=== PATIENT | female | born 1965 | race Caucasian/White ===

== ENCOUNTER 2020-07-15 09:31 | Outpatient (REF) | payer OTHER, SELFPAY ==
[2020-07-19 20:12] LABS: HPV mRNA E6/E7 rflx Not Detected (Not Detected)
== END 2020-07-15 09:32 | disposition home or self-care (01) ==
LOC: HO.LAB 09:31
PROVIDERS: PCP Internal Medicine; Referring Provider Internal Medicine; Visit Provider Obstetrics & Gynecology
DX: Z01.419 Encounter for gynecological examination (general) (routine) without abnormal findings (principal); R63.4 Abnormal weight loss
CPT/HCPCS: 87624; 87625; 88142

== ENCOUNTER 2020-08-04 12:50 | Outpatient (REF) | payer OTHER, SELFPAY | END 2020-08-04 12:51 | disposition home or self-care (01) | LOC: HO.LAB 12:50 | PROVIDERS: PCP Internal Medicine; Visit Provider Internal Medicine | DX: Z20.828 Contact with and (suspected) exposure to other viral communicable diseases (principal) | CPT/HCPCS: C9803; U0003 ==

== ENCOUNTER → 2020-08-12 11:17 | Outpatient (BNVA) | payer OTHER, SELFPAY | PROVIDERS: PCP Internal Medicine; Visit Provider Nurse Practitioner Family | DX: Z13.89 Encounter for screening for other disorder (principal) | CPT/HCPCS: Q3014 ==

== ENCOUNTER 2020-08-13 07:52 | Outpatient (REF) | payer OTHER, SELFPAY ==
[2020-08-13 08:39] LABS: Hemoglobin 12.8 g/dl (12.0-16.0); Mean Corpuscular HGB Conc 32.8 g/dl (31.0-35.0); Mean Corpuscular Hemoglobin 30.7 pg (27.0-33.0); Mean Corpuscular Volume 93.5 fL (80-98); Mean Platelet Volume 10.3 fL (9.4-12.3); Platelet Count 240 X10*3/uL (160-400); Red Blood Count 4.17 X10*6/uL (4.20-5.50); Red Cell Distribution Width 12.9 % (11.0-16.0); White Blood Count 9.4 X10*3/uL (4.8-10.8)
[2020-08-13 09:12] LABS: Alanine Aminotransferase 7 U/L (0-31); Albumin Level 4.3 g/dL (3.5-5.0); Alkaline Phosphatase 83 U/L (39-117); Anion Gap 11 (12-20); Aspartate Amino Transferase 13 U/L (5-31); Bilirubin Total 0.6 mg/dL (0.0-1.0); Blood Urea Nitrogen 11 mg/dL (9-16); Calcium 8.9 mg/dL (8.4-10.2); Carbon Dioxide 30 mmol/L (22-29); Chloride 105 mmol/L (96-108); Cholesterol 196 mg/dL; Estimated Glomerular Filt Rate > 60; Glucose Fasting 81 mg/dL (60-99); HDL Cholesterol 51 mg/dL; LDL Cholesterol Calculated 118 mg/dl; Potassium 4.2 mmol/l (3.3-5.1); Sodium 142 mmol/L (135-145); Total Protein 7.1 g/dL (6.5-8.0); Triglycerides 138 mg/dL
[2020-08-17 11:23] LABS: Vitamin D 25-OH, D2 8 ng/mL; Vitamin D 25-OH, D3 32 ng/mL; Vitamin D 25-OH, Total 40 ng/mL (30-100)
== END 2020-08-13 07:53 | disposition home or self-care (01) ==
LOC: HO.LAB 07:52
PROVIDERS: PCP Internal Medicine; Visit Provider Nurse Practitioner Family
DX: Z12.11 Encounter for screening for malignant neoplasm of colon (principal); E55.9 Vitamin D deficiency, unspecified; Z82.49 Family history of ischemic heart disease and other diseases of the circulatory system; J30.9 Allergic rhinitis, unspecified
CPT/HCPCS: 36415; 80053; 80061; 82306; 85027

== ENCOUNTER → 2020-09-09 14:06 | Outpatient (BNVA) | payer OTHER, SELFPAY | PROVIDERS: PCP Internal Medicine; Visit Provider Nurse Practitioner Family | DX: Z76.89 Persons encountering health services in other specified circumstances (principal) ==

== ENCOUNTER 2020-09-14 07:36 | Day surgery (SDC) | payer OTHER, SELFPAY ==
[2020-09-08 19:39] VITALS: BMI 26.0
--- NOTE | 2020-09-13 10:37 | HO.ANESPROP2 ---
HPI - Anesthesia Eval Consult details Narrative: 54yo F for Colon[facility] Past Medical History Medical History (Updated 09/08/20 @ 19:45 by Holly Harris RN) Allergic rhinitis Anemia Asthma Family history of hypertension GERD (gastroesophageal reflux disease) Hypovitaminosis D Migraine Migraine Moderate asthma Nausea Parkinson disease Restless leg syndrome Tremors of nervous system Family History Family History (Updated 07/16/20 @ 07:54 by SUSHILA Walker) Father HTN (hypertension) Asthma Mother HTN (hypertension) Paternal Grandfather Prostate cancer Maternal Grandfather Prostate cancer Surgical History Surgical History History of breast lump/mass excision History of carpal tunnel release History of colonoscopy History of surgery Hx of tubal ligation Social History Social History (Updated 09/09/20 @ 14:10 by SUSHILA Sarah) Household Members: Spouse and Children Alcohol intake: never Smoking Status: Never smoker Use of substances other than those prescribed or required for medical reasons: No Advance Directives: Yes Advance Directives Information Provided: Yes Advance Directives on File: No (will bring) Advance Directives Date on File: 08/27/14 Current occupational status: disabled Sexual orientation: Straight/Heterosexual Gender identity: female Meds Allergies Allergy/AdvReac Type Severity Reaction Status Date / Time No Known Allergies Allergy Verified 09/09/20 14:09 [No Known Allergies*] Home Medications Medication Instructions Recorded Confirmed Type albuterol sulfate 2.5 mg INHALATION Q6H 07/15/20 09/08/20 History albuterol sulfate 90 mcg/actuation 2 puff INHALATION Q6H PRN 07/15/20 09/08/20 History aerosol inhaler carbidopa ER 25 mg-levodopa 100 mg 1 tab PO TID 07/15/20 09/08/20 History tablet,extended release cholecalciferol (vitamin D3) 25 25 mcg PO DAILY 07/15/20 09/08/20 History mcg (1,000 unit) capsule divalproex 250 mg tablet,delayed 250 mg PO TID 07/15/20 09/08/20 History release fluticasone furoate 100 1 inh INHALATION DAILY 07/15/20 09/08/20 History mcg-vilanterol 25 mcg/dose inhalation powder fluticasone propionate 50 1 spray INTRANASAL DAILY 07/15/20 09/08/20 History mcg/actuation nasal spray,suspension gabapentin 100 mg capsule 100 mg PO BID 07/15/20 09/08/20 History loratadine 10 mg capsule 10 mg PO DAILY 07/15/20 09/08/20 History primidone 50 mg tablet 50 mg PO BEDTIME 07/15/20 09/08/20 History promethazine 25 mg tablet 25 mg PO Q4-6H PRN 07/15/20 09/08/20 History ropinirole 5 mg tablet 5 mg PO BEDTIME 07/15/20 09/08/20 History Exam Exam Date and Time: September 13, 2020 1037 Height,Weight and Vital Signs: Height 5 ft 3 in Weight 66.678 kg Assessment and Plan Assessment Anesthesia Assessment: Chart Reviewed
[2020-09-14 09:20] VITALS: BP 145/75; PULSE 74; RESP 18; TEMP 36.9; O2SAT 99
[2020-09-14] MEDS: Lactated Ringers 1,000 ML 100 ML IVCONT (09:52)
--- NOTE | 2020-09-14 10:12 | P.OP_ITS ---
Operative Note Operative Note Date of Service: 09/14/20 Narrative: Pre-op diagnosis: Colon cancer screening Post-op diagnosis: other (colon polyps, diverticulosis) Procedure: COLONOSCOPY TILL CECUM WITH BIOPSY AND SNARE POLYPECTOMY Consent: Indications for the procedure and potential complications of bleeding, perforation, reaction to medications and missed diagnosis were discussed with the patient and informed consent was obtained. Instrument: Olympus PCF H 190 L variable stiffness pediatric colonoscope Monitoring: Vital signs and clinical assessment, intermittent blood pressure monitoring, continuous EKG monitoring, Pulse oximetry and Carbon Dioxide monitoring were done throughout the procedure. Colon withdrawl time was 21 minutes. Procedure: The patient was placed in the left lateral decubitis position and pre-procedure medications were administered. After a digital rectal examination of the ano-rectum, the video colonoscope was inserted into the rectum and advanced through the colon to the cecum. The colonoscope was slowly withdrawn in a retrograde panoramic fashion and the colon mucosa was carefully examined including a retroflexed view of the rectum. Findings and interventions are described below. Procedure Difficulty: Without difficulty Findings: Terminal Ileum: Distal 5 cms was examined and appeared normal Cecum: ? ulcers with yellow-white exudates at the lip of ICV - biopsied Ascending Colon: A 10 mm ulcerated sessile polyp in the proximal AC removed with a cold snare Transverse Colon: Normal Descending Colon: Normal Sigmoid Colon: Moderate diverticulosis Rectum: A few 5-8 mm diminutive appearing polyps - one polyp was biopsied. Ano-rectum: Normal Colon preparation: Excellent Impression and Post Procedure Diagnosis: Colonoscopy Findings: Two small to medium sized polyps removed Moderate diverticulosis seen in the sigmoid colon Plan: Await pathology results Patient has an appointment on 09/17/20 in the GI Clinic with Mesha Alexander FNP-. Repeat Colonoscopy interval based on path results - in 3-5 years if polyps are adenomatous and 10 years if polyps are hyperplastic. Above findings were reviewed with the patient and colon polyps and diverticu losis handouts were given in the discharge area Surgeon: Georgette Posey MD Anesthesia: MAC (Dr Tavarez) Estimated blood loss (mL): 0 Pathology: other (A. AC polyp x 1, B. ICV, C. rectal polyp x 1) Condition: stable Disposition: PACU
--- NOTE | 2020-09-14 10:12 | MHC.SHP ---
Pre-Procedural Eval Section A The patient is an INPATIENT: No The History & Physical has been completed within 30 days and I have reviewed it.: No Section B Chief Complaint: screening Details of Present Illness: Colon cancer screening, hx of hyperplastic colon polyps Relevant Family History (Specify if Yes): No Relevant Social History: None Present Medications: see Short Stay Collaborative assessment Medical History: Significant History (Allergic rhinitis Anemia Asthma Family history of hypertension GERD (gastroesophageal reflux disease) Hypovitaminosis D Migraine Moderate asthma Nausea Parkinson disease Restless leg syndrome Tremors of nervous system) History of Previous Operations: Relevant previous surgery/procedure and date(s) (History of breast lump/mass excision History of carpal tunnel release History of colonoscopy History of surgery Hx of tubal ligation) Allergies: Allergies Allergy/AdvReac Type Severity Reaction Status Date / Time No Known Allergies Allergy Verified 09/09/20 14:09 [No Known Allergies*] Review of Systems Sugical H&P ROS: Negative: Constitution, Cardiovascular, Respiratory and Gastrointestinal Exam Surgical H&P Exam: Normal: Heart, Normal: Lungs, Normal: Extremities and Normal: Abdomen Plan Diagnosis/Plan: Unchanged I have reviewed the history and physical and performed a pertinent physical examination on my patient. No changes have occurred unless specified.
[2020-09-14 11:15] VITALS: BP 90/51; PULSE 61; RESP 16; TEMP 36.7; O2SAT 100
[2020-09-14 11:30] VITALS: BP 100/64; PULSE 65; RESP 16; TEMP 36.7; O2SAT 100
== END 2020-09-14 12:28 | disposition home or self-care (01) ==
PROVIDERS: PCP Internal Medicine; Visit Provider Internal Medicine Gastroenterology
PROC: 0DJD8ZZ Inspection of Lower Intestinal Tract, Via Natural or Artificial Opening Endoscopic (ICD-10-PCS; CPT 45378; principal; 2020-09-14 09:40)
DX: Z12.11 Encounter for screening for malignant neoplasm of colon (principal); D12.2 Benign neoplasm of ascending colon; K62.1 Rectal polyp; K57.30 Diverticulosis of large intestine without perforation or abscess without bleeding; K52.9 Noninfective gastroenteritis and colitis, unspecified; K21.9 Gastro-esophageal reflux disease without esophagitis; D64.9 Anemia, unspecified; J45.909 Unspecified asthma, uncomplicated; I10 Essential (primary) hypertension; G20 Parkinson's disease; Z79.51 Long term (current) use of inhaled steroids; Z79.899 Other long term (current) drug therapy
CPT/HCPCS: 45385; 45380; 88305

== ENCOUNTER → 2020-09-17 14:04 | Outpatient (BNVA) | payer OTHER, SELFPAY | PROVIDERS: PCP Internal Medicine; Visit Provider Nurse Practitioner Family | DX: Z13.89 Encounter for screening for other disorder (principal) | CPT/HCPCS: 99212 ==

== ENCOUNTER 2020-09-17 16:05 | Emergency (ER) | payer OTHER, SELFPAY ==
[2020-09-17 16:10] VITALS: BP 164/84; PULSE 80; RESP 18; TEMP 36.7; O2SAT 98
[2020-09-17 18:35] VITALS: BP 154/77; PULSE 74; RESP 20; TEMP 36.3; O2SAT 100
[2020-09-17 20:00] VITALS: BP 152/86; PULSE 69; RESP 16; TEMP 36.4
--- NOTE | 2020-09-17 21:28 | ED.GENADULT ---
HPI - General Adult General Chief complaint: Headache Stated complaint: High blood pressure/Dizziness Time Seen by Provider: 09/17/20 21:27 Source: patient, old records reviewed and spanish interpreter/translator Mode of arrival: ambulatory Limitations: no limitations History of Present Illness HPI narrative: 54 yo female comes in with reported high blood pressure at home today (unsure of value) but reports nausea, photophobia, headache which she had when her pressure was high, she notes prior dx of HTN but has not been on medications or years due to BP being stable, no AC therapy, no trauma, has not tried any pain medications at home MD complaint: headache Onset (ago): day(s) (> 12 hours ago) Location: head Severity: moderate Quality: aching, dull and constant Pain Consistency: constant Relieving factors: none Exacerbating factors: other (worse with light exposure) Associated symptoms: headaches and nausea/vomiting Treatments prior to arrival: none Related Data Home Medications Medication Instructions Recorded Confirmed albuterol sulfate 2.5 mg INHALATION Q6H 07/15/20 09/17/20 albuterol sulfate 90 mcg/actuation 2 puff INHALATION Q6H PRN 07/15/20 09/17/20 aerosol inhaler carbidopa ER 25 mg-levodopa 100 mg 1 tab PO TID 07/15/20 09/17/20 tablet,extended release cholecalciferol (vitamin D3) 25 25 mcg PO DAILY 07/15/20 09/17/20 mcg (1,000 unit) capsule divalproex 250 mg tablet,delayed 250 mg PO TID 07/15/20 09/17/20 release fluticasone furoate 100 1 inh INHALATION DAILY 07/15/20 09/17/20 mcg-vilanterol 25 mcg/dose inhalation powder gabapentin 100 mg capsule 100 mg PO BID 07/15/20 09/17/20 loratadine 10 mg capsule 10 mg PO DAILY 07/15/20 09/17/20 primidone 50 mg tablet 50 mg PO BEDTIME 07/15/20 09/17/20 promethazine 25 mg tablet 25 mg PO Q4-6H PRN 07/15/20 09/17/20 ropinirole 5 mg tablet 5 mg PO BEDTIME 07/15/20 09/17/20 Previous Rx's Medication Instructions Recorded omeprazole 20 mg capsule,delayed 20 mg PO DAILY #90 cap 08/14/20 release fluticasone propionate 50 1 spray INTRANASAL DAILY #48 ml 09/15/20 mcg/actuation nasal spray,suspension Allergies Allergy/AdvReac Type Severity Reaction Status Date / Time No Known Allergies Allergy Verified 09/17/20 14:05 [No Known Allergies*] Review of Systems Review of Systems: Constitutional : No Fever, No Chills, No Fatigue ENT/Mouth : No sore throat, No Rhinorrhea Eyes: pos photophobia, No Swelling, No Redness Cardiovascular : No Chest Pain, No SOB, No Dyspnea on Exertion Respiratory : No Cough, No Sputum Gastrointestinal : pos Nausea, No Vomiting, No Diarrhea, No abdominal Pain Genitourinary : No Dysuria, No Urinary Frequency, No Hematuria, Musculoskeletal : No joint pain, No Myalgias, No Joint Swelling Skin : No Skin Lesions, No rash Neuro : No Weakness, No Numbness, No Dizziness, positive Headache Psych : No Anxiety/Panic, No Depression Heme/Lymph: No Bruising, No Bleeding,No Lymphadenopathy Endocrine : No Polyuria, No Polydipsia All other systems reviewed and are negative [facility] Past Medical History Attestation statement: The following information was validated with the patient. Medical History Allergic rhinitis Anemia Asthma Family history of hypertension GERD (gastroesophageal reflux disease) Hypovitaminosis D Migraine Migraine Moderate asthma Nausea Parkinson disease Restless leg syndrome Tremors of nervous system Tubular adenoma Surgical History History of breast lump/mass excision History of carpal tunnel release History of colonoscopy History of surgery Hx of tubal ligation Family History Family History (Updated 07/16/20 @ 07:54 by Lizbet Lo Amber) Father HTN (hypertension) Asthma Mother HTN (hypertension) Paternal Grandfather Prostate cancer Maternal Grandfather Prostate cancer Social History Social History Household Members: Spouse and Children Alcohol intake: never Smoking Status: Never smoker Use of substances other than those prescribed or required for medical reasons: No Advance Directives: Yes Advance Directives on File: Yes Advance Directives Date on File: 08/27/14 Current occupational status: disabled Sexual orientation: Straight/Heterosexual Gender identity: female Physical Exam Vital Signs: Vital Signs: Last Vital Signs Temp 98.0 F 09/17/20 21:48 Pulse 71 09/17/20 21:48 Resp 17 09/17/20 21:48 BP 142/77 H 09/17/20 21:48 Pulse Ox 99 09/17/20 21:48 Body Mass Index 24.6 Appearance: Alert. Oriented X3. No acute distress. Eyes: Pupils equal, round and reactive to light. Covering eyes from light ENT: Pharynx normal. Neck: Normal inspection. Neck supple. no meningeal signs CVS: Normal heart rate and rhythm. Pulses normal. Respiratory: No respiratory distress. Breath sounds normal. Abdomen: Soft and nontender. Skin: Skin warm and dry. Normal skin color. Normal skin turgor. Extremities: No lower extremity edema. No calf ttp no clonus Neuro: Oriented X 3. No motor deficit. No sensory deficit. Fine tremor R hand Course Course Course Narrative: BP 123/56 symptoms resolved, likely headache causing BP stable for DC Medical Decision Making [facility] Narrative Medical decision making narrative: 54 yo female with migraines, parkinsons, GERD here with reported high blood pressure and headaches at home, her headache was gradual she has nausea and photophobia which occurs with her migraines, no neuro deficitis, supple neck doubt SAH or [employer] infection - will treat headache and see if that improves her pain. Discharge Plan Discharge Clinical Impression: Headache Qualifiers: Headache type: tension-type Headache chronicity pattern: acute headache Intractability: not intractable Qualified Code(s): G44.209 - Tension-type headache, unspecified, not intractable Patient Disposition: Home, Self-Care Instructions: Acute Headache (ED) Additional Instructions: return to ED for any worsening symptoms or concerns BP 123/56 Prescriptions: No Action omeprazole 20 mg capsule,delayed release(DR/EC) 20 mg PO DAILY Qty: 90 RF: 1 fluticasone propionate 50 mcg/actuation spray,suspension 1 spray intranasal DAILY Qty: 48 RF: 2 promethazine 25 mg tablet 25 mg PO Q4-6H PRN (Reason: Nausea) RF: 0 primidone 50 mg tablet 50 mg PO BEDTIME RF: 0 carbidopa-levodopa 25-100 mg tablet extended release 1 tab PO TID RF: 0 divalproex 250 mg tablet,delayed release (DR/EC) 250 mg PO TID RF: 0 gabapentin 100 mg capsule 100 mg PO BID RF: 0 ropinirole 5 mg tablet 5 mg PO BEDTIME RF: 0 cholecalciferol (vitamin D3) 25 mcg (1,000 unit) capsule 25 mcg PO DAILY RF: 0 loratadine 10 mg capsule 10 mg PO DAILY RF: 0 Breo Ellipta 100-25 mcg/dose blister with device 1 inh inhalation DAILY RF: 0 albuterol sulfate [ProAir HFA] 90 mcg/actuation HFA aerosol inhaler 2 puff inhalation Q6H PRN (Reason: Shortness Of Breath Or Wheezing) RF: 0 albuterol sulfate 2.5 mg /3 mL (0.083 %) solution for nebulization 2.5 mg inhalation Q6H RF: 0 Referrals: Venita Arthur MD [Primary Care Provider] - 3 days (if not better) Print Language: Luxembourger
[2020-09-17 21:30] VITALS: BP 176/82; PULSE 79; RESP 16; O2SAT 98; BMI 24.6
[2020-09-17 21:48] VITALS: BP 142/77; PULSE 71; RESP 17; TEMP 36.7; O2SAT 99
[2020-09-17] MEDS: 0.9 % Sodium Chloride 500 ML IV (22:15)
[2020-09-17] MEDS: Metoclopramide HCl 10 MG/2 ML VIAL 5 MG IVPUSH (22:15)
[2020-09-17] MEDS: diphenhydrAMINE HCL 50 MG/ML VIAL 25 MG IVPUSH (22:16)
[2020-09-17] MEDS: Ketorolac Tromethamine 30 MG/ML VIAL IVPUSH (22:16)
--- NOTE | 2020-09-17 22:28 | PC.NURSE ---
iv inserted, pt medicated per order, will continue to monitor
[2020-09-17 22:57] VITALS: BP 123/56; PULSE 73; RESP 18; TEMP 36.7; O2SAT 98
== END 2020-09-17 23:08 | disposition home or self-care (01) ==
PROVIDERS: Emergency Provider Emergency Medicine; PCP Internal Medicine
DX: G44.209 Tension-type headache, unspecified, not intractable (principal); I10 Essential (primary) hypertension; G20 Parkinson's disease
CPT/HCPCS: 96361; 96374; 96375; 99284; J1200; J1885; J2765

== ENCOUNTER 2020-09-23 13:40 | Outpatient (REF) | payer OTHER, SELFPAY | END 2020-09-23 13:41 | disposition home or self-care (01) | LOC: HO.LNP 13:40 | PROVIDERS: Nurse Practitioner Family; PCP Internal Medicine; Visit Provider Nurse Practitioner | DX: K21.9 Gastro-esophageal reflux disease without esophagitis (principal) | CPT/HCPCS: 87338 ==

== ENCOUNTER → 2020-10-12 14:03 | Outpatient (BNVA) | payer OTHER, SELFPAY | PROVIDERS: PCP Internal Medicine; Visit Provider Nurse Practitioner Family | DX: Z76.89 Persons encountering health services in other specified circumstances (principal) | CPT/HCPCS: 99212 ==

== ENCOUNTER → 2020-11-03 14:01 | Outpatient (BNVA) | payer OTHER, SELFPAY | PROVIDERS: PCP Internal Medicine; Visit Provider Nurse Practitioner Family | DX: Z13.89 Encounter for screening for other disorder (principal) | CPT/HCPCS: Q3014 ==

== ENCOUNTER 2020-11-18 06:23 | Day surgery (SDC) | payer OTHER, SELFPAY ==
[2020-11-11 14:46] VITALS: BMI 24.6
--- NOTE | 2020-11-17 13:01 | HO.ANESPROP2 ---
Documented by User: Genesis Jordan 11/17/20 13:03 HPI - Anesthesia Eval Consult details Narrative: 54yo F for Upper Endoscopy s/p Colonoscopy with [facility]IVA 08/2020 [facility] Active Problems Active Problems: All Active Problems (Updated 11/11/20 @ 14:45 by Mayelin Paulino) H. pylori infection (Acute) Abdominal discomfort (Acute) Hypertension (Acute) Tubular adenoma (Acute) GERD (gastroesophageal reflux disease) (Acute) Allergic rhinitis (Acute) Family history of hypertension (Acute) Nausea (Acute) Restless leg syndrome (Acute) Tremors of nervous system (Acute) Moderate asthma (Acute) Hypovitaminosis D (Acute) Past Medical History Medical History (Updated 11/11/20 @ 14:45 by Mayelin Paulino) Abdominal discomfort Allergic rhinitis Anemia Asthma Family history of hypertension GERD (gastroesophageal reflux disease) Hypertension Hypovitaminosis D Migraine Moderate asthma Nausea Parkinson disease Restless leg syndrome Tremors of nervous system Tubular adenoma Family History Family History (Updated 10/12/20 @ 14:07 by SUSHILA Roberto) Father HTN (hypertension) Asthma Mother HTN (hypertension) Paternal Grandfather Prostate cancer Maternal Grandfather Prostate cancer Surgical History Surgical History History of breast lump/mass excision History of carpal tunnel release History of colonoscopy History of surgery Hx of tubal ligation Social History Social History (Updated 11/11/20 @ 14:29 by Mayelin Paulino) Household Members: Spouse and Children Alcohol intake: never Smoking Status: Never smoker Use of substances other than those prescribed or required for medical reasons: No Have you been hit, kicked, punched, or otherwise hurt by someone within the past year? If so, by whom?: No Advance Directives: Yes Advance Directives Information Provided: Yes Advance Directives on File: Yes Advance Directives Date on File: 08/27/14 Current occupational status: disabled Sexual orientation: Straight/Heterosexual Gender identity: female Meds Allergies Allergy/AdvReac Type Severity Reaction Status Date / Time Seasonal Allergies Allergy Mild runny nose Verified 11/18/20 07:07 Home Medications Medication Instructions Recorded Confirmed Last Taken Type divalproex 250 mg tablet,delayed 250 mg PO TID 07/15/20 11/11/20 Unknown History release fluticasone furoate 100 1 inh INHALATION DAILY 07/15/20 11/11/20 Unknown History mcg-vilanterol 25 mcg/dose inhalation powder primidone 50 mg tablet 50 mg PO BEDTIME 07/15/20 11/11/20 Unknown History promethazine 25 mg tablet 25 mg PO Q4-6H PRN 07/15/20 09/17/20 Unknown History ropinirole 5 mg tablet 5 mg PO TID 07/15/20 11/11/20 Unknown History bisacodyl 5 mg tablet,delayed 0 mg PO 09/21/20 Unknown History release cholecalciferol (vitamin D3) 50 50 mcg PO DAILY 09/21/20 11/11/20 Unknown History mcg (2,000 unit) capsule gabapentin 300 mg capsule 300 mg PO TID 09/21/20 11/11/20 Unknown History polyethylene glycol 3350 17 g PO 09/21/20 Unknown History gram/dose oral powder carbidopa-levodopa 1 tab PO TID 11/11/20 11/11/20 Unknown History Exam Exam Date and Time: November 17, 2020 1301 Height,Weight and Vital Signs: Height 5 ft 3 in Weight 63.049 kg Assessment and Plan Assessment Anesthesia Assessment: Chart Reviewed Documented by User: Jules Lawler MD 11/18/20 07:46 [facility] Past Medical History Medical History (Updated 11/11/20 @ 14:45 by Mayelin Paulino) Abdominal discomfort Allergic rhinitis Anemia Asthma Family history of hypertension GERD (gastroesophageal reflux disease) Hypertension Hypovitaminosis D Migraine Moderate asthma Nausea Parkinson disease Restless leg syndrome Tremors of nervous system Tubular adenoma Family History Family History (Updated 10/12/20 @ 14:07 by SUSHILA Roberto) Father HTN (hypertension) Asthma Mother HTN (hypertension) Paternal Grandfather Prostate cancer Maternal Grandfather Prostate cancer Surgical History Surgical History History of breast lump/mass excision History of carpal tunnel release History of colonoscopy History of surgery Hx of tubal ligation Social History Social History (Updated 11/11/20 @ 14:29 by Mayelin Paulino) Household Members: Spouse and Children Alcohol intake: never Smoking Status: Never smoker Use of substances other than those prescribed or required for medical reasons: No Have you been hit, kicked, punched, or otherwise hurt by someone within the past year? If so, by whom?: No Advance Directives: Yes Advance Directives Information Provided: Yes Advance Directives on File: Yes Advance Directives Date on File: 08/27/14 Current occupational status: disabled Sexual orientation: Straight/Heterosexual Gender identity: female Meds Allergies Allergy/AdvReac Type Severity Reaction Status Date / Time Seasonal Allergies Allergy Mild runny nose Verified 11/18/20 07:07 Home Medications Medication Instructions Recorded Confirmed Last Taken Type divalproex 250 mg tablet,delayed 250 mg PO TID 07/15/20 11/11/20 Unknown History release fluticasone furoate 100 1 inh INHALATION DAILY 07/15/20 11/11/20 Unknown History mcg-vilanterol 25 mcg/dose inhalation powder primidone 50 mg tablet 50 mg PO BEDTIME 07/15/20 11/11/20 Unknown History promethazine 25 mg tablet 25 mg PO Q4-6H PRN 07/15/20 09/17/20 Unknown History ropinirole 5 mg tablet 5 mg PO TID 07/15/20 11/11/20 Unknown History bisacodyl 5 mg tablet,delayed 0 mg PO 09/21/20 Unknown History release cholecalciferol (vitamin D3) 50 50 mcg PO DAILY 09/21/20 11/11/20 Unknown History mcg (2,000 unit) capsule gabapentin 300 mg capsule 300 mg PO TID 09/21/20 11/11/20 Unknown History polyethylene glycol 3350 17 g PO 09/21/20 Unknown History gram/dose oral powder carbidopa-levodopa 1 tab PO TID 11/11/20 11/11/20 Unknown History Exam Airway Mallampati Class: I TM Dist: >3cm Neck ROM: Full Loose/Missing/Broken Teeth: No Heart: RRR Lungs: Coughing Assessment and Plan Assessment Anesthesia Assessment: Anesthesia Plan Discussed and Chart Reviewed Final Anesthetic Review NPO: Yes ASA Class: III Final Preanesthetic Review: No Changes in Pt Med Stat, Meds/Allgs Chart Reviewed, Consent Obtained/Reviewed and Anes Risks/Benef Reviewed Patient Risk: Intermediate Procedure Risk: Low Anesthetic Plan Anesthetic Plan: MAC: Disposition: Standard PACU
[2020-11-18] VITALS (9 sets, daily range): BP systolic 120–139; BP diastolic 62–77; PULSE 60–91; RESP 16–18; TEMP 36.4–37.2; O2SAT 95–100
[2020-11-18] MEDS: Lactated Ringers 1,000 ML 100 ML IVCONT (06:59)
--- NOTE | 2020-11-18 07:23 | W.PM.OPN ---
Operative Note Operative Note Date of Service: 11/18/20 Narrative: Pre-op diagnosis: Abdominal pain, follow-up of Helicobacter pylori infection Post-op diagnosis: other (Gastritis) Procedure: FLEXIBLE TRANSORAL UPPER GASTROINTESTINAL ENDOSCOPY WITH BIOPSIES Consent: Indications for the procedure and potential complications of bleeding, perforation, reaction to medications and missed diagnosis were discussed with the patient and informed consent was obtained. Instrument: Olympus GIF H 190 mid size upper endoscope Monitoring: Vital signs and clinical assessment, continuous EKG monitoring, Pulse oximetry, Carbon Dioxide monitoring and blood pressure monitoring were done throughout the procedure. Procedure: The patient was placed in the left lateral decubitis position and pre-procedure medications were administered and a bite block was placed. The endoscope was inserted into the mouth and advanced under direct vision to the third part of duodenum. A careful inspection was made as the upper endoscope was withdrawn including a retroflexed examination of the proximal stomach; Findings and interventions are described below. Findings: Larynx: Normal Esophagus: GE junction at 35 cms. No esophagitis or Rangel Stomach: Mild gastric erythema. Biopsies were obtained for histology. Additional biopsies were placed in a sterile container on a Tefla pad and submitted for Helicobacter pylori culture and sensitivities (in case H Pylori is still positive). Grade 2 flap valve on retroflexed examination of the cardia. Duodenum: Normal bulb and descending duodenum. Biopsies were obtained from 3rd part of the duodenum to check for celiac sprue Intervention: Biopsies as noted above Impression and Post Procedure Diagnosis: Endoscopy Findings: STOMACH: Mild gastric erythema. Biopsies were obtained for histology. Additional biopsies were placed in a sterile container on a Tefla pad and submitted for Helicobacter pylori culture and sensitivities (in case H Pylori is still positive). DUODENUM: Normal biopsied to check for celiac sprue Plan: Await pathology results Patient has an appointment on 11/24/20 in the GI Clinic with BALDOMERO Gary. Above findings were reviewed with the patient and a handout on Gastritis was given in the discharge area Surgeon: Georgette Posey MD Anesthesia: MAC (Dr Lawler) Estimated blood loss (mL): 0 Pathology: other (a. small bowel bx b. gastric polyp c. gastric antrum) Condition: stable Disposition: PACU
--- NOTE | 2020-11-18 07:23 | MHC.SHP ---
Pre-Procedural Eval Section A The patient is an INPATIENT: No Changes since office visit: Yes Patient answered all questions; No Cold of Flu in the past 2 weeks, No New Medical Problems and No Changes in Medication The History & Physical has been completed within 30 days and I have reviewed it.: Yes Section B Chief Complaint: reflux disease,abdominal pain Allergies: Allergies Allergy/AdvReac Type Severity Reaction Status Date / Time Seasonal Allergies Allergy Mild runny nose Verified 11/18/20 07:07 Review of Systems Sugical H&P ROS: Negative: Constitution and Cardiovascular and Yes, Specify: Respiratory (asthma) and Gastrointestinal (abdominal pain) Exam Surgical H&P Exam: Normal: Heart, Normal: Lungs, Normal: Extremities and Normal: Abdomen Plan Diagnosis/Plan: Unchanged I have reviewed the history and physical and performed a pertinent physical examination on my patient. No changes have occurred unless specified.
[2020-11-18] MEDS: Albuterol Sulfate (0.083%) 2.5 MG/3 ML VIAL.NEB INHALE (08:14)
== END 2020-11-18 10:24 | disposition home or self-care (01) ==
PROVIDERS: PCP Internal Medicine; Visit Provider Internal Medicine Gastroenterology
PROC: 0DJ08ZZ Inspection of Upper Intestinal Tract, Via Natural or Artificial Opening Endoscopic (ICD-10-PCS; CPT 43235; principal; 2020-11-18 07:30)
DX: K29.50 Unspecified chronic gastritis without bleeding (principal); K21.9 Gastro-esophageal reflux disease without esophagitis; K31.7 Polyp of stomach and duodenum; Z86.19 Personal history of other infectious and parasitic diseases; I10 Essential (primary) hypertension; D64.9 Anemia, unspecified; J45.909 Unspecified asthma, uncomplicated; E55.9 Vitamin D deficiency, unspecified; G20 Parkinson's disease; Z79.51 Long term (current) use of inhaled steroids; Z79.899 Other long term (current) drug therapy
CPT/HCPCS: 43239; 36415; 88305; 88342; J2250

== ENCOUNTER → 2020-11-24 14:14 | Outpatient (BNVA) | payer OTHER, SELFPAY | PROVIDERS: PCP Internal Medicine; Visit Provider Nurse Practitioner Family | DX: Z13.89 Encounter for screening for other disorder (principal) | CPT/HCPCS: Q3014 ==

== ENCOUNTER 2020-11-26 22:56 | Emergency (ER) | payer OTHER, SELFPAY ==
--- NOTE | ~2020-11-26 | CT_ITS ---
EXAMINATION: CT ABDOMEN AND PELVIS WITH CONTRAST CLINICAL INFORMATION: Diffuse abdominal pain. COMPARISON: Mammogram from 12/20/2016. Abdominal and pelvic CT from 11/18/2011. TECHNIQUE: Contiguous axial thin section helical images of the abdomen and pelvis were performed following the administration of 85 mL of intravenous Omnipaque 350. The data set was reformatted in the coronal and sagittal planes and reviewed on an independent workstation. DLP: 608 mGy-cm. FINDINGS: There is mild dependent bibasilar atelectasis. The visualized lung bases are otherwise clear. The visualized portions of the heart are unremarkable. Within the lower inner right breast, there is a stable 2.6 cm low-attenuation lesion. The liver is of normal size and attenuation without focal lesions nor intrahepatic biliary ductal dilation. A normal gallbladder is identified. There is no wall thickening or discernible pericholecystic fluid. The spleen, pancreas, adrenal glands are unremarkable. Both kidneys are of normal size and attenuation without hydronephrosis or nephrolithiasis. Following the administration of IV contrast, prompt symmetric nephrograms are displayed. There is no abdominal free fluid. There is neither mesenteric nor retroperitoneal lymphadenopathy. Normal unopacified loops of small and large bowel are identified. A normal appendix is identified. There is no pelvic free fluid. The urinary bladder is unremarkable. There is neither pelvic nor inguinal lymphadenopathy. Bone windows: Neither sclerotic nor lytic bone lesions are identified. CT/CT abdomen pelvis w con IMPRESSION: No acute abdominal or pelvic inflammatory or infectious processes. Automated exposure control (Care Dose) Adjustment of the mA and/or kv according to patient size (this includes techniques or standardized protocols for targeted exams where dose is matched to indication / reason for exam; i.e. extremities or head).
[2020-11-26 22:59] VITALS: BP 144/69; PULSE 76; RESP 16; TEMP 36.8; O2SAT 100; BMI 24.7
[2020-11-27 01:30] LABS: MANUAL DIFF FLAG NO
--- NOTE | 2020-11-27 01:30 | ED_ITS ---
HPI - Back Pain/Injury General Chief Complaint: Back Pain/Injury Stated Complaint: Back pain Time Seen by Provider: 11/27/20 00:35 Source: patient Mode of arrival: ambulatory History of Present Illness HPI Narrative: 54-year-old female with a past medical history of anemia, asthma, GERD, migraines, Parkinson's, restless leg syndrome, tubular adenoma, gastritis, presenting to the ED complaining of persistent epigastric abdominal pain, osito sea, and vomiting x weeks, & now with right-sided low back pain x today s/p bending over to grab something off floor. Reports urinary frequency. Denies direct back trauma/injury or fall, radiation down legs, numbness, tingling, urinary incontinence/retention. States abdominal pain, nausea and vomiting unchanged from prior GI visit. Patient with recent upper endoscopy on 11/18/2020 showing gastritis, scheduled for abdominal ultrasound which has not been performed yet MD elicited complaint: back pain Related Data Home Medications Medication Instructions Recorded Confirmed divalproex 250 mg tablet,delayed 250 mg PO TID 07/15/20 11/22/20 release fluticasone furoate 100 1 inh INHALATION DAILY 07/15/20 11/22/20 mcg-vilanterol 25 mcg/dose inhalation powder primidone 50 mg tablet 50 mg PO BEDTIME 07/15/20 11/22/20 ropinirole 5 mg tablet 5 mg PO TID 07/15/20 11/22/20 bisacodyl 5 mg tablet,delayed 0 mg PO 09/21/20 11/22/20 release gabapentin 300 mg capsule 300 mg PO TID 09/21/20 11/22/20 polyethylene glycol 3350 17 g PO 09/21/20 11/22/20 gram/dose oral powder carbidopa-levodopa 1 tab PO TID 11/11/20 11/22/20 Previous Rx's Medication Instructions Recorded omeprazole 20 mg capsule,delayed 20 mg PO DAILY #90 cap 08/14/20 release fluticasone propionate 50 1 spray INTRANASAL DAILY #48 ml 09/15/20 mcg/actuation nasal spray,suspension albuterol sulfate 90 mcg/actuation 2 puff INHALATION Q6H PRN 30 Days 09/21/20 aerosol inhaler #6.7 g lisinopril 5 mg tablet 5 mg PO DAILY 90 Days #90 tab 09/21/20 loratadine 10 mg tablet 10 mg PO DAILY #90 tab 10/09/20 albuterol sulfate 2.5 mg INHALATION Q6H PRN 30 Days 11/03/20 #360 ml ondansetron 4 mg disintegrating 4 mg PO Q8H PRN #42 tab 11/03/20 tablet famotidine 20 mg tablet 20 mg PO BID #30 tab 11/24/20 lactobacillus combination no.8 3 3,000 mmu cells PO DAILY #30 cap 11/24/20 billion cell capsule promethazine 25 mg tablet 25 mg PO Q4-6H PRN #60 tab 11/24/20 cholecalciferol (vitamin D3) 50 50 mcg PO DAILY #90 cap 11/26/20 mcg (2,000 unit) capsule acetaminophen [Tylenol Extra 500 mg PO Q6H PRN #20 tab 11/27/20 Strength] cyclobenzaprine 5 mg PO Q8H PRN 5 Days #14 tab 11/27/20 lidocaine [Lidoderm] 1 patch TOPICAL DAILY PRN #30 ea 11/27/20 MDD remove after 12 hours naproxen 500 mg PO BID PRN 10 Days #20 tab 11/27/20 Allergies Allergy/AdvReac Type Severity Reaction Status Date / Time Seasonal Allergies Allergy Mild runny nose Verified 11/24/20 14:14 Review of Systems Review of Systems: Constitutional: No Fever, No Chills Cardiovascular: No Chest Pain, No SOB Respiratory: No Cough, No Dyspnea Gastrointestinal: +Nausea, + Vomiting, No Diarrhea, No Constipation, +Abdominal pain, No Hematochezia, No Melena Genitourinary: No irregular bleeding, No Dysuria, + Urinary Frequency, No Hematuria, No Flank Pain, No urinary incontinence/retention Musculoskeletal: +back pain, No Myalgias, No Joint Swelling Skin: No Skin Lesions, No rash Neuro: No Weakness, No Numbness, No Paresthesias Yes all other systems are reviewed and are negative [facility] Past Medical History Attestation statement: The following information was validated with the patient. Medical History (Updated 11/24/20 @ 16:51 by Mesha Alexander [facility]) Abdominal discomfort Allergic rhinitis Anemia Asthma Family history of hypertension Fatigue Gastritis GERD (gastroesophageal reflux disease) Hypertension Hypovitaminosis D Migraine Moderate asthma Nausea Parkinson disease Restless leg syndrome Right knee pain Tremors of nervous system Tubular adenoma Surgical History History of breast lump/mass excision History of carpal tunnel release History of colonoscopy History of surgery Hx of tubal ligation Family History Family History Father HTN (hypertension) Asthma Mother HTN (hypertension) Paternal Grandfather Prostate cancer Maternal Grandfather Prostate cancer Social History Social History (Updated 11/24/20 @ 14:19 by SUSHILA Roberto) Household Members: Spouse and Children Alcohol intake: current Alcohol intake frequency: does not drink Smoking Status: Never smoker Advance Directives: Yes Advance Directives on File: Yes Advance Directives Date on File: 08/27/14 Current occupational status: disabled Sexual orientation: Straight/Heterosexual Gender identity: female Physical Exam Vital Signs: Vital Signs: Last Vital Signs Temp 98.2 F 11/26/20 22:59 Pulse 76 11/26/20 22:59 Resp 16 11/26/20 22:59 BP 144/69 H 11/26/20 22:59 Pulse Ox 100 11/26/20 22:59 Body Mass Index 24.7 Const: General: cooperative, healthy appearing and no acute distress Orientation/consciousness: patient oriented x3 Limitations: no limitations HENMT: Head: Yes normal to inspection Ears: hearing grossly normal dylon aterally General nose exam: Normal external nose present Face and sinus: Yes normal facial exam Eyes: General: appearance normal, both eyes and all related structures EOM: EOMs intact bilaterally Neck: Neck: Yes normal visual inspection Resp: Effort & Inspection: normal respiratory effort Cardio: Rate: regular rate GI: Inspection: Yes normal to inspection Palpation (GI): Soft to palpation, Tenderness to palpation present (GI) in the epigastrum, in the LLQ and in the LUQ, no guarding and not rigid : General: Yes no CVA tenderness Back/Spine/Pelvis: Other: No midline thoracic/lumbar spinous tenderness or step-offs. + right-sided thoracic MSK tenderness to palpation with palpable muscle spasming Back: no CVA tenderness Skin: Rashes: no rashes Wounds: no wounds Neuro: Other: No saddle anesthesia. Strength intact throughout General: patient oriented x3, gait normal, tone normal and moves all extremities Gait exam (Neuro): Normal gait present Motor exam (neuro): 5/5 motor strength present throughout Extrem: General: Yes normal to inspection Course Course Course Narrative: -199--ED care transferred to Dr. Martinez pending remaining labs, CT, dispo per results MDM - Back Pain/Injury MDM Narrative Medical decision making narrative: 54-year-old female with a past medical history of anemia, asthma, GERD, migraines, Parkinson's, restless leg syndrome, tubular adenoma, gastritis, presenting to the ED complaining of persistent epigastric abdominal pain, nausea, and vomiting x weeks, & now with right-sided low back pain x today s/p bending over to grab something off floor. On exam VSS, NAD/well-appearing, physical exam as above, abdomen soft with e pigastric/LUQ/LLQ ttp right-sided thoracic MSK tenderness palpation, midline spinous tenderness or red flag symptoms. Likely MSK back pain, low concern for cauda equina/cord compression. Abdominal pain likely secondary to gastritis/GERD. R/o diverticulitis. Lower concern for appendicitis/renal stone Plan: Labs, UA, CT, IVF, symptomatic treatment, reassess Differential Diagnosis Differential diagnosis: Likely lumbar radiculopathy Medical Records Attestation: I reviewed the patient's medical records. Lab Data Attestation: I reviewed the patient's lab results. Result diagrams: 11/27/20 01:25 11/27/20 01:25 Discharge Plan Discharge Instructions: Abdominal Pain (ED), Back Pain (ED) Additional Instructions: Your pain is likely musculoskeletal Flexeril is a muscle relaxer, take at night as it makes you drowsy, do not drive, drink alcohol, or operate machinery while taking it Naproxen as an anti-inflammatory / pain medication, take with food Lidoderm patches are numbing patches, apply to painful area In addition take Tylenol at home If symptoms persist or worsen, pain becomes unbearable, you developed urinary retention or incontinence, or weakness return to the ED Es probable que young dolor sea musculoesquel?lian Flexeril es un relajante muscular, t?lai por la noche ya que le produce somnolencia, no conduzca, no oliva alcohol ni utilice maquinaria mientras lo t dennise. Naproxeno alfie medicamento antiinflamatorio / analg?sico, ninoska con alimentos. Los parches de Lidoderm son parches que adormecen, se aplican al ?lacey dolorida Adem?s, tome Tylenol en casa. Si los s?ntomas persisten o empeoran, el dolor se vuelve insoportable, desarroll? retenci?n urinaria o incontinencia, o debilidad regrese al servicio de urgencias Prescriptions: New cyclobenzaprine 5 mg tablet 5 mg PO Q8H PRN (Reason: pain (scale score 7-10)) 5 Days Qty: 14 RF: 0 lidocaine [Lidoderm] 5 % adhesive patch,medicated 1 patch topical DAILY MDD remove after 12 hours PRN (Reason: pain) Qty: 30 RF: 0 naproxen 500 mg tablet 500 mg PO BID PRN (Reason: pain) 10 Days Qty: 20 RF: 0 acetaminophen [Tylenol Extra Strength] 500 mg tablet 500 mg PO Q6H PRN (Reason: pain or fever) Qty: 20 RF: 0 No Action omeprazole 20 mg capsule,delayed release(DR/EC) 20 mg PO DAILY Qty: 90 RF: 1 fluticasone propionate 50 mcg/actuation spray,suspension 1 spray intranasal DAILY Qty: 48 RF: 2 loratadine 10 mg tablet 10 mg PO DAILY Qty: 90 RF: 1 albuterol sulfate 2.5 mg /3 mL (0.083 %) solution for nebulization 2.5 mg inhalation Q6H PRN (Reason: bronchospasm) 30 Days Qty: 360 RF: 6 cholecalciferol (vitamin D3) 50 mcg (2,000 unit) capsule 50 mcg PO DAILY Qty: 90 RF: 2 carbidopa-levodopa 25-100 mg tablet 1 tab PO TID RF: 0 gabapentin 300 mg capsule 300 mg PO TID RF: 0 polyethylene glycol 3350 17 gram/dose powder PO RF: 0 bisacodyl 5 mg tablet,delayed release (DR/EC) 0 mg PO RF: 0 albuterol sulfate [ProAir HFA] 90 mcg/actuation HFA aerosol inhaler 2 puff inhalation Q6H PRN (Reason: Shortness Of Breath Or Wheezing) 30 Days Qty: 6.7 RF: 0 lisinopril 5 mg tablet 5 mg PO DAILY 90 Days Qty: 90 RF: 0 primidone 50 mg tablet 50 mg PO BEDTIME RF: 0 divalproex 250 mg tablet,delayed release (DR/EC) 250 mg PO TID RF: 0 ropinirole 5 mg tablet 5 mg PO TID RF: 0 Breo Ellipta 100-25 mcg/dose blister with device 1 inh inhalation DAILY RF: 0 promethazine 25 mg tablet 25 mg PO Q4-6H PRN (Reason: Nausea) Qty: 60 RF: 2 Adult Probiotic 3 billion cell capsule 3,000 mmu cells PO DAILY Qty: 30 RF: 2 famotidine [Pepcid] 20 mg tablet 20 mg PO BID Qty: 30 RF: 3 ondansetron 4 mg tablet,disintegrating 4 mg PO Q8H PRN (Reason: nausea and vomiting) Qty: 42 RF: 0 Referrals: Venita Arthur MD [Primary Care Provider] - 2 days Georgette Posey MD [Physician] - 5 days
[2020-11-27 01:31] LABS: Basophils Percent Auto 0.5 % (0-2); Eosinophils Absolute Auto 0.1 X10*3/uL (0.0-0.4); Eosinophils Percent Auto 1.1 % (0-4); Hematocrit 37.3 % (37-47); Hemoglobin 12.3 g/dl (12.0-16.0); Imm Gran Abs Auto 0.02 X10*3/uL (0.00-0.03); Imm Gran Pct Auto 0.2 % (0.0-0.4); Lymphocytes Percent Auto 47.2 % (20-40); Mean Corpuscular Hemoglobin 30.1 pg (27.0-33.0); Mean Corpuscular Volume 91.4 fL (80-98); Mean Platelet Volume 9.9 fL (9.4-12.3); Monocytes Absolute Auto 0.5 X10*3/uL (0.1-1.2); Monocytes Percent Auto 5.7 % (2-11); Neutrophils Absolute Auto 3.8 X10*3/uL (2.0-8.3); Neutrophils Percent Auto 45.3 % (45-73); Platelet Count 243 X10*3/uL (160-400); Red Blood Count 4.08 X10*6/uL (4.20-5.50); Red Cell Distribution Width 12.7 % (11.0-16.0); White Blood Count 8.5 X10*3/uL (4.8-10.8)
[2020-11-27] MEDS: Famotidine/PF 20 MG/2 ML VIAL IVPUSH (01:50)
[2020-11-27] MEDS: Cyclobenzaprine HCl 10 MG TABLET PO (01:50)
[2020-11-27] MEDS: Metoclopramide HCl 10 MG/2 ML VIAL IVPUSH (01:51)
[2020-11-27] MEDS: 0.9 % Sodium Chloride 1,000 ML 999 ML IVCONT (01:51)
[2020-11-27] MEDS: Magnesium Hydrox/Alum Hydrox 30 ML ORAL.SUSP PO (01:51)
[2020-11-27 02:00] VITALS: BP 138/72; PULSE 70; RESP 16; TEMP 36.8; O2SAT 99
--- NOTE | 2020-11-27 02:16 | PC.NURSE ---
Repeat lab draw sent to lab for analysis. awaiting results.
[2020-11-27 02:29] LABS: Alanine Aminotransferase < 6 U/L (0-31); Albumin Level 4.1 g/dL (3.5-5.0); Alkaline Phosphatase 87 U/L (39-117); Anion Gap 11 (12-20); Aspartate Amino Transferase 11 U/L (5-31); Bilirubin Direct 0.2 mg/dL (0.0-0.5); Bilirubin Total 0.2 mg/dL (0.0-1.0); Blood Urea Nitrogen 14 mg/dL (9-16); Calcium 8.6 mg/dL (8.4-10.2); Carbon Dioxide 30 mmol/L (22-29); Chloride 106 mmol/L (96-108); Creatinine Clr Calc Pharmacy 96.1; Estimated Glomerular Filt Rate > 60; Glucose Random 92 mg/dL (60-115); Lipase 30 U/L (8-78); Magnesium 2.2 mg/dL (1.6-2.6); Potassium 3.7 mmol/L (3.3-5.1); Sodium 143 mmol/L (135-145); Total Protein 6.5 g/dL (6.5-8.0)
[2020-11-27] MEDS: iohexoL 350 MG/ML 75 ML INFUS..BTL IV (03:09)
--- NOTE | 2020-11-27 03:28 | PC.NURSE ---
PATIENT OUT OF BED TO BATHROOM, BUT DID NOT PROVIDE URINE SPECIMEN ACCIDENTALLY. ENCOURAGED TO PROVIDE URINE SPECIMEN WHEN ABLE.
[2020-11-27 04:00] VITALS: BP 134/72; PULSE 69; RESP 18; O2SAT 97
[2020-11-27 04:40] LABS: Glucose Urine UA NEG (NEG); Leukocyte Esterase Urine NEG (NEG); Nitrite Urine NEG (NEG); PH 5.5 (5.0-8.0); Specific Gravity - Urine <= 1.005 (1.005-1.025); Urine Blood TRACE (NEG); Urine Ketones NEG (NEG); Urine Protein NEG (NEG-TRACE)
[2020-11-27 04:41] LABS: Appearance Urine CLEAR; Color Urine STRAW
[2020-11-27 04:46] LABS: RBC Urine 0 /HPF (0); Squamous Epithelial Cell Urine 2+ /LPF; WBC Urine 0-2 /HPF (0-4)
--- NOTE | 2020-11-27 05:58 | PC.NURSE ---
speaking with patient regarding care plan, results, and plan for discharge home. Staff medical diagnostic radiographer also at bedside.
[2020-11-27 06:00] VITALS: BP 127/72; PULSE 80; RESP 18; O2SAT 99
[2020-11-27] MEDS: oxyCODONE HCl Immed Release 5 MG TABLET PO (06:03)
== END 2020-11-27 06:32 | disposition home or self-care (01) ==
PROVIDERS: Physician Assistant; Emergency Provider Emergency Medicine; PCP Internal Medicine
DX: M54.5 Low back pain (principal); R10.13 Epigastric pain; I10 Essential (primary) hypertension; K21.9 Gastro-esophageal reflux disease without esophagitis; G20 Parkinson's disease
CPT/HCPCS: 36415; 74177; 80048; 80076; 81001; 83690; 83735; 85025; 96361; 96374; 96375; 99284; J2765; Q9967

== ENCOUNTER 2020-11-29 10:02 | Outpatient (REF) | payer OTHER, SELFPAY ==
--- NOTE | ~2020-11-29 | XR_ITS ---
EXAMINATION: XR KNEE, RIGHT CLINICAL INFORMATION: Right knee pain. COMPARISON: Bilateral knee radiographs dated 06/10/2018. TECHNIQUE: AP, lateral, and sunrise views of the right knee. FINDINGS: No acute fracture or dislocation. No joint space narrowing or marginal osteophytes. No osseous erosion. Superior and inferior patellar enthesophytes. No significant joint effusion. XR/XR knee RT 3V IMPRESSION: Unremarkable examination.
[2020-11-30 13:27] LABS: Gliadin Deamidated IgA Ab 2 Units; Gliadin Deamidated IgG Ab 1 Units; Transglutaminase Ab IgG 2 U/mL; Transglutaminase IgA 1 U/mL
[2020-12-01 02:31] LABS: CRP High Sensitivity 0.8 mg/L
== END 2020-11-29 10:03 | disposition home or self-care (01) ==
LOC: HO.XRAY 10:02
PROVIDERS: Absent Provider Internal Medicine; PCP Internal Medicine; Visit Provider Nurse Practitioner Family
DX: M25.561 Pain in right knee (principal); R10.9 Unspecified abdominal pain; R11.10 Vomiting, unspecified; K29.70 Gastritis, unspecified, without bleeding
CPT/HCPCS: 36415; 73562; 83516; 86141

== ENCOUNTER → 2020-12-03 12:39 | Outpatient (BNVA) | payer OTHER, SELFPAY | PROVIDERS: PCP Internal Medicine; Visit Provider Nurse Practitioner Family | DX: K29.70 Gastritis, unspecified, without bleeding (principal); R10.9 Unspecified abdominal pain; R11.0 Nausea | CPT/HCPCS: 99212 ==

== ENCOUNTER 2020-12-06 11:09 | Outpatient (REF) | payer OTHER, SELFPAY ==
--- NOTE | ~2020-12-06 | US_ITS ---
EXAMINATION: US ABDOMEN COMPLETE CLINICAL INFORMATION: Abdominal pain.. COMPARISON: None TECHNIQUE: Real-time imaging of the abdominal viscera. FINDINGS: PANCREAS: The pancreas is obscured by overlying gas. ABDOMINAL AORTA: The proximal, mid, and distal segments are normal in caliber. INFERIOR VENA CAVA: Visualized portions are normal. LIVER: There are 2 calcifications seen in the right lobe measuring 0.6 x 0.6 x 0.5 cm and 0.5 x 0.4 x 0.6 cm. The liver is normal in size. The liver contour is normal. Parenchymal echogenicity is normal. No focal hepatic lesion. There is no intrahepatic biliary duct dilatation seen. GALLBLADDER: Normal. The gallbladder is physiologically distended without evidence of stones, sludge, polyps, wall thickening or pericholecystic fluid. COMMON BILE DUCT: Normal in caliber measuring 0.27 cm in diameter. RIGHT KIDNEY: Normal. No hydronephrosis. No renal calculi or focal parenchymal lesions. The kidney measures 11.0 cm in maximum dimension. LEFT KIDNEY: Normal. There is no hydronephrosis, renal calculi or focal parenchymal lesions. The kidney measures 11.0 cm in maximum dimension. SPLEEN: Normal. The spleen measures 8.0 cm in maximum dimension. FREE FLUID: None. US/US abdomen complete IMPRESSION: Unremarkable ultrasound abdomen complete.
== END 2020-12-06 11:10 | disposition home or self-care (01) ==
LOC: HO.HMGCX 11:09
PROVIDERS: PCP Internal Medicine; Visit Provider Nurse Practitioner Family
DX: R10.9 Unspecified abdominal pain (principal)
CPT/HCPCS: 76700

== ENCOUNTER → 2020-12-14 12:14 | Outpatient (BNVA) | payer OTHER, SELFPAY | PROVIDERS: PCP Internal Medicine; Visit Provider Nurse Practitioner Family | DX: K29.70 Gastritis, unspecified, without bleeding (principal); R10.9 Unspecified abdominal pain; K21.9 Gastro-esophageal reflux disease without esophagitis; R11.0 Nausea | CPT/HCPCS: 99212 ==

== ENCOUNTER → 2021-01-07 07:01 | Outpatient (REF) | payer OTHER, SELFPAY ==
--- NOTE | ~2021-01-07 | NM_ITS ---
EXAMINATION: RADIONUCLIDE SOLID FOOD GASTRIC EMPTYING 4-HOUR STUDY CLINICAL INFORMATION: Gastritis, vomiting, nausea, abdominal discomfort. COMPARISON: No previous gastric emptying study is available for comparison. TECHNIQUE: A standard meal consisting of 4 oz of Egg Beaters brand tagged with 1.0 mCi Tc-99m Sulfur Colloid, 8 oz water and 2 slices of toast with jelly was administered orally to the patient. Images were obtained using a dual head gamma camera in the anterior and posterior projections over of the stomach immediately post ingestion and at hourly intervals up to 3 hours post ingestion. Images were not obtained at 4 hours due to the minimal retention at 3 hours. The anterior and posterior counts at each time interval were averaged using the geometric mean and expressed as percentage of the immediate post ingestion counts. FINDINGS: There is good visualization of activity in the stomach immediately post ingestion. As the study progresses, there is good clearance of activity from the stomach and visualization of progressively increasing small bowel activity. By the end of the study, there is almost no retention noted in the stomach. Retention in the stomach at each time interval was: 1 hour 67% (normal 37%-90%) 2 hours 26% (normal 30%-60%) 3 hours 5% 4 hours (Not Obtained) (normal 0%-10%) NM/NM gastric emptying study IMPRESSION: Normal solid food gastric emptying study.
== END ==
LOC: HO.NUCMED 07:01
PROVIDERS: Visit Provider Nurse Practitioner Family
DX: R10.9 Unspecified abdominal pain (principal); K29.70 Gastritis, unspecified, without bleeding
CPT/HCPCS: 78264; A9541

== ENCOUNTER → 2021-01-14 15:07 | Outpatient (BNVA) | payer OTHER, SELFPAY | PROVIDERS: PCP Internal Medicine; Referring Provider Internal Medicine; Visit Provider Nurse Practitioner Family | DX: K29.70 Gastritis, unspecified, without bleeding (principal); R10.9 Unspecified abdominal pain; R11.0 Nausea; K59.00 Constipation, unspecified | CPT/HCPCS: 99212 ==

== ENCOUNTER 2021-02-18 09:46 | Outpatient (REF) | payer OTHER, SELFPAY ==
[2021-02-18 10:18] LABS: MANUAL DIFF FLAG NO
[2021-02-18 10:22] LABS: Basophils Absolute Auto 0.1 X10*3/uL (0.0-0.2); Basophils Percent Auto 0.9 % (0-2); Eosinophils Absolute Auto 0.1 X10*3/uL (0.0-0.4); Eosinophils Percent Auto 0.9 % (0-4); Hematocrit 40.3 % (37-47); Hemoglobin 13.3 g/dl (12.0-16.0); Imm Gran Abs Auto 0.02 X10*3/uL (0.00-0.03); Imm Gran Pct Auto 0.3 % (0.0-0.4); Lymphocytes Absolute Auto 2.3 X10*3/uL (1.2-4.9); Lymphocytes Percent Auto 32.8 % (20-40); Mean Corpuscular Hemoglobin 30.4 pg (27.0-33.0); Mean Platelet Volume 10.2 fL (9.4-12.3); Monocytes Absolute Auto 0.5 X10*3/uL (0.1-1.2); Neutrophils Absolute Auto 4.1 X10*3/uL (2.0-8.3); Neutrophils Percent Auto 58.1 % (45-73); Platelet Count 268 X10*3/uL (160-400); Red Blood Count 4.38 X10*6/uL (4.20-5.50); Red Cell Distribution Width 12.2 % (11.0-16.0)
[2021-02-18 10:48] LABS: Alanine Aminotransferase < 6 U/L (0-31); Albumin Level 4.5 g/dL (3.5-5.0); Alkaline Phosphatase 93 U/L (39-117); Anion Gap 11 (12-20); Aspartate Amino Transferase 13 U/L (5-31); Bilirubin Total 0.6 mg/dL (0.0-1.0); Blood Urea Nitrogen 11 mg/dL (9-16); Calcium 9.7 mg/dL (8.4-10.2); Carbon Dioxide 27 mmol/L (22-29); Chloride 107 mmol/L (96-108); Cholesterol 219 mg/dL; Estimated Glomerular Filt Rate > 60; Glucose Fasting 98 mg/dL (60-99); HDL Cholesterol 44 mg/dL; LDL Cholesterol Calculated 132 mg/dl; Potassium 4.2 mmol/L (3.3-5.1); Sodium 141 mmol/L (135-145); Total Protein 7.4 g/dL (6.5-8.0); Triglycerides 216 mg/dL
[2021-02-18 11:05] LABS: Thyroid Stimulating Hormone 0.55 uIU/mL (0.32-4.0)
[2021-02-23 17:41] LABS: Vitamin D 25-OH, D2 9 ng/mL; Vitamin D 25-OH, D3 35 ng/mL; Vitamin D 25-OH, Total 44 ng/mL (30-100)
== END 2021-02-18 09:47 | disposition home or self-care (01) ==
LOC: HO.LAB 09:46
PROVIDERS: PCP Internal Medicine; Visit Provider Internal Medicine
DX: E78.5 Hyperlipidemia, unspecified (principal); I10 Essential (primary) hypertension; E55.9 Vitamin D deficiency, unspecified; D64.9 Anemia, unspecified; K21.9 Gastro-esophageal reflux disease without esophagitis; R53.83 Other fatigue
CPT/HCPCS: 36415; 80053; 80061; 82306; 84443; 85025

== ENCOUNTER 2021-03-09 09:19 | Outpatient (REF) | payer OTHER, SELFPAY ==
--- NOTE | ~2021-03-09 | FL_ITS ---
EXAMINATION: XR GI SERIES CLINICAL INFORMATION: Gastroesophageal reflux disease without esophagitis. COMPARISON: None TECHNIQUE: Routine upper GI air-contrast study was performed in upright and lying position. FINDINGS: Following oral administration of thick barium and effervescent granules, there is normal propagation of bolus without any evidence of obstruction, narrowing or stricture. On placing patient supine and prone lying, the course, caliber and peristalsis of the stomach is normal. There is a large gastroesophageal reflux into the upper esophagus. No hiatal hernia is seen. The mucosal pattern of the stomach, duodenal bulb and the sweep is normal. FLUOROSCOPY TIME: 1.8 minutes DOSE AREA PRODUCT: 17.952 uGy-m2 (microgray-meter squared) FL/FL upper GI series IMPRESSION: Large gastroesophageal reflux into the upper esophagus. No hiatal hernia. The rest of the upper GI exam is unremarkable.
== END 2021-03-09 09:20 | disposition home or self-care (01) ==
LOC: HO.XRAY 09:19
PROVIDERS: PCP Internal Medicine; Visit Provider Internal Medicine
DX: K21.9 Gastro-esophageal reflux disease without esophagitis (principal)
CPT/HCPCS: 74240

== ENCOUNTER → 2021-03-21 14:45 | Outpatient (BNVA) | payer OTHER, SELFPAY | PROVIDERS: PCP Internal Medicine; Referring Provider Internal Medicine; Visit Provider Nurse Practitioner Family | DX: K29.70 Gastritis, unspecified, without bleeding (principal); K21.9 Gastro-esophageal reflux disease without esophagitis; R10.9 Unspecified abdominal pain; R11.0 Nausea; R42 Dizziness and giddiness; G43.909 Migraine, unspecified, not intractable, without status migrainosus | CPT/HCPCS: 99212 ==

== ENCOUNTER 2021-03-21 15:28 | Emergency (ER) | payer OTHER, SELFPAY ==
--- NOTE | 2021-03-21 | ECG_ITS ---
Test Reason : DIZZINESS Blood Pressure : / mmHG Vent. Rate : 064 BPM Atrial Rate : 064 BPM P-R Int : 130 ms QRS Dur : 084 ms QT Int : 386 ms P-R-T Axes : 061 061 058 degrees QTc Int : 398 ms Artifact in tracing Undetermined rhythm Consider repeating EKG When compared with ECG of 27-MAR-2014 13:06, Due to poor quality, cannot compare Referred By: Generic ED Physician Electronically Signed By:PAOLA MEJIA
--- NOTE | ~2021-03-21 | CT_ITS ---
EXAMINATION: CT HEAD WITHOUT CONTRAST CLINICAL INFORMATION: Headache and dizziness COMPARISON: Brain MRI 04/27/2010 TECHNIQUE: Contiguous axial imaging was performed from the skull base to vertex without intravenous administration of contrast. This CT examination was performed using dose optimization techniques as appropriate, variously including the following: *Automated exposure control *Adjustment of mA and/or kV according to patient size (this includes techniques or standardized protocols for targeted exams where dose is matched to indication/reason for exam; i.e. extremities or head) *Use of iterative reconstruction technique DLP: 692 mGy-cm FINDINGS: No evidence of acute intracranial hemorrhage or extra-axial fluid collection. No evidence of mass lesion, mass effect or midline shift. The ventricles are symmetric in configuration and normal in size. The basal cisterns are patent. No acute territorial infarction. The calvarium is intact. Limited views of the paranasal sinuses are unremarkable. Mastoid air cells are well aerated and middle ear cavities are clear. Orbits unremarkable. CT/CT head/brain wo con IMPRESSION: No acute intracranial abnormality.
[2021-03-21 15:44] VITALS: BP 166/80; PULSE 67; RESP 18; TEMP 36.4; O2SAT 100; BMI 26.5
[2021-03-21 16:27] LABS: Basophils Percent Auto 0.4 % (0-2); Eosinophils Absolute Auto 0.1 X10*3/uL (0.0-0.4); Eosinophils Percent Auto 0.9 % (0-4); Hematocrit 36.5 % (37-47); Hemoglobin 12.3 g/dl (12.0-16.0); Imm Gran Abs Auto 0.01 X10*3/uL (0.00-0.03); Imm Gran Pct Auto 0.1 % (0.0-0.4); Lymphocytes Absolute Auto 2.9 X10*3/uL (1.2-4.9); Lymphocytes Percent Auto 42.6 % (20-40); MANUAL DIFF FLAG NO; Mean Corpuscular HGB Conc 33.7 g/dl (31.0-35.0); Mean Corpuscular Hemoglobin 30.3 pg (27.0-33.0); Mean Corpuscular Volume 89.9 fL (80-98); Mean Platelet Volume 9.7 fL (9.4-12.3); Monocytes Absolute Auto 0.4 X10*3/uL (0.1-1.2); Monocytes Percent Auto 5.5 % (2-11); Neutrophils Absolute Auto 3.5 X10*3/uL (2.0-8.3); Neutrophils Percent Auto 50.5 % (45-73); Platelet Count 259 X10*3/uL (160-400); Red Blood Count 4.06 X10*6/uL (4.20-5.50); Red Cell Distribution Width 12.4 % (11.0-16.0); White Blood Count 6.9 X10*3/uL (4.8-10.8)
[2021-03-21 16:49] LABS: Alanine Aminotransferase 11 U/L (0-31); Albumin Level 4.3 g/dL (3.5-5.0); Alkaline Phosphatase 73 U/L (39-117); Anion Gap 11 (12-20); Aspartate Amino Transferase 13 U/L (5-31); Bilirubin Total 1.1 mg/dL (0.0-1.0); Blood Urea Nitrogen 10 mg/dL (9-16); Calcium 9.3 mg/dL (8.4-10.2); Carbon Dioxide 30 mmol/L (22-29); Chloride 108 mmol/L (96-108); Creatinine Clr Calc Pharmacy 96.5; Estimated Glomerular Filt Rate > 60; Glucose Random 86 mg/dL (60-115); Potassium 4.2 mmol/L (3.3-5.1); Sodium 145 mmol/L (135-145); Total Protein 6.8 g/dL (6.5-8.0)
[2021-03-21 16:52] LABS: Troponin-I High Sensitivity < 3.5 ng/L (<3.5-17.0)
--- NOTE | 2021-03-21 19:21 | ED.DIZZY ---
HPI - Dizziness General Chief Complaint: Dizziness Stated Complaint: dizziness Time Seen by Provider: 03/21/21 19:21 Source: patient Mode of arrival: ambulatory Limitations: no limitations History of Present Illness HPI Narrative: patient has been feeling lightheaded for 3 days. Nausea and vomiting from gluten allergy. No prior history of dizziness, patient currently has a migraine. Her migraine headache started this afternoon. MD elicited complaint: lightheadedness Onset (ago): day(s) Timing: gradual onset Severity: mild Description: lightheadedness Exacerbating factors: nothing Associated symptoms: nausea, vomiting and other (headache) Related Data Home Medications Medication Instructions Recorded Confirmed divalproex 250 mg tablet,delayed 250 mg PO TID 07/15/20 03/03/21 release fluticasone furoate 100 1 inh INHALATION DAILY 07/15/20 03/03/21 mcg-vilanterol 25 mcg/dose inhalation powder ropinirole 5 mg tablet 5 mg PO TID 07/15/20 03/03/21 bisacodyl 5 mg tablet,delayed 0 mg PO 09/21/20 03/03/21 release gabapentin 300 mg capsule 300 mg PO TID 09/21/20 03/03/21 carbidopa-levodopa 1 tab PO TID 11/11/20 03/03/21 Previous Rx's Medication Instructions Recorded fluticasone propionate 50 1 spray INTRANASAL DAILY #48 ml 09/15/20 mcg/actuation nasal spray,suspension albuterol sulfate 90 mcg/actuation 2 puff INHALATION Q6H PRN 30 Days 09/21/20 aerosol inhaler #6.7 g lisinopril 5 mg tablet 5 mg PO DAILY 90 Days #90 tab 09/21/20 loratadine 10 mg tablet 10 mg PO DAILY #90 tab 10/09/20 albuterol sulfate 2.5 mg INHALATION Q6H PRN 30 Days 11/03/20 #360 ml lactobacillus combination no.8 3 3,000 mmu cells PO DAILY #30 cap 11/24/20 billion cell capsule promethazine 25 mg tablet 25 mg PO Q4-6H PRN #60 tab 11/24/20 cholecalciferol (vitamin D3) 50 50 mcg PO DAILY #90 cap 11/26/20 mcg (2,000 unit) capsule acetaminophen [Tylenol Extra 500 mg PO Q6H PRN #20 tab 11/27/20 Strength] cyclobenzaprine 5 mg PO Q8H PRN 5 Days #14 tab 11/27/20 lidocaine [Lidoderm] 1 patch TOPICAL DAILY PRN #30 ea 11/27/20 MDD remove after 12 hours naproxen 500 mg PO BID PRN 10 Days #20 tab 11/27/20 sennosides 8.6 mg tablet 8.6 mg PO BEDTIME PRN #30 tab 01/14/21 omeprazole 20 mg capsule,delayed 20 mg PO DAILY #90 cap 02/07/21 release rosuvastatin 5 mg tablet 5 mg PO BEDTIME 90 Days #90 tab 03/03/21 magnesium oxide 400 mg (241.3 mg 400 mg PO DAILY 30 Days #30 tab 03/09/21 magnesium) tablet famotidine 20 mg tablet 20 mg PO BID 30 Days #60 tab 03/15/21 ondansetron 4 mg disintegrating 4 mg PO Q8H PRN #42 tab 03/21/21 tablet Allergies Allergy/AdvReac Type Severity Reaction Status Date / Time Seasonal Allergies Allergy Mild runny nose Verified 03/03/21 08:59 Review of Systems Constitutional: Constitutional: Reports no additional constitutional complaints Eyes: Eyes: Reports no additional eye complaints ENT: Denies dizziness Cardiovascular: Cardiovascular: Reports no additional cardiovascular complaints Respiratory: Respiratory: Reports as per HPI Gastrointestinal: Gastrointestinal: Reports no additional gastrointestinal complaints Genitourinary: Genitourinary: Reports no additional female genitourinary complaints Musculoskeletal: Musculoskeletal: Reports no additional musculoskeletal complaints Integumentary/Breasts: Skin/Breast: Denies rash Neurologic: Reports system reviewed and no additional complaints, except as documented, Denies dizziness and Denies Sensory deficit (Neuro) Psychiatric: Psychiatric: Denies anxiety PMFSH Past Medical History Medical History Abdominal discomfort Allergic rhinitis Anemia Asthma Family history of hypertension Fatigue Gastritis GERD (gastroesophageal reflux disease) Hypertension Hypovitaminosis D Migraine Mixed hyperlipidemia Moderate asthma Nausea Parkinson disease Restless leg syndrome Right knee pain Tremors of nervous system Tubular adenoma Surgical History History of breast lump/mass excision History of carpal tunnel release History of colonoscopy History of surgery Hx of tubal ligation Family History Family History Father HTN (hypertension) Asthma Mother HTN (hypertension) Paternal Grandfather Prostate cancer Maternal Grandfather Prostate cancer Social History Social History Household Members: Spouse and Children Housing: House Alcohol intake: never Patient Tobacco Use Status: Never used Tobacco e-Cigarette/Vaping Use: Never Used Second Hand Smoke Exposure: No Advance Directives: Yes Advance Directives on File: Yes Advance Directives Date on File: 08/27/14 Patient : No service: No Current occupational status: unemployed Sexual orientation: Straight/Heterosexual Gender identity: female Physical Exam Vital Signs: Vital Signs: Last Vital Signs Temp 97.5 F 03/21/21 15:44 Pulse 57 03/21/21 19:45 Resp 16 03/21/21 19:45 BP 143/73 H 03/21/21 19:45 Pulse Ox 100 03/21/21 19:45 Body Mass Index 26.5 Const: Other: patient with hand covering her eyes secondary to headache General: healthy appearing Nutritional Appearance: average body habitus Orientation/consciousness: oriented to person and patient oriented x3 Limitations: no limitations HENMT: Head: Yes normal to inspection Ears: external ears normal General nose exam: Normal external nose present Mouth: Normal oral and palatal mucosa present and oropharynx normal Throat: Yes posterior oropharynx normal Eyes: General: appearance normal, both eyes and all related structures Neck: Other: supple Neck: Yes normal visual inspection Chest: Chest palpation & inspection: normal inspection of the chest Resp: Auscultation: clear to auscultation bilaterally Cardio: Jugular venous distension: no JVD Rate: regular rate Rhythm: regular rhythm Heart sounds: S1 normal heart sound present and S2 normal heart sound present GI: Inspection: Yes normal to inspection Palpation (GI): Soft to palpation, nontender and No hepatosplenomegaly present Auscultation: normal bowel sounds : General: Yes no CVA tenderness Back/Spine/Pelvis: Back: no CVA tenderness Skin: General skin exam: no rashes or lesions noted Neuro: General: oriented to person and patient oriented x3 Cranial nerves: Yes CN's II-XII intact bilaterally Motor exam (neuro): 5/5 motor strength present throughout Sensory Exam: No Sensory deficit (Neuro) Extrem: General: Yes normal to inspection Psych: Appearance: grossly normal Course Reevaluation(s) Reevaluation #1: Patient feeling better, labs and CT negative will dc with Migraine ROWE. Time: 21:01 MDM - Dizziness Lab Data Result diagrams: 03/21/21 16:22 03/21/21 16:22 Labs: Lab Results 03/21/21 03/21/21 03/21/21 Range/Units 16:22 16:22 16:22 WBC 6.9 (4.8-10.8) X10*3/uL RBC 4.06 L (4.20-5.50) X10*6/uL Hgb 12.3 (12.0-16.0) g/dl Hct 36.5 L (37-47) % MCV 89.9 (80-98) fL MCH 30.3 (27.0-33.0) pg MCHC 33.7 (31.0-35.0) g/dl RDW 12.4 (11.0-16.0) % Plt Count 259 (160-400) X10*3/uL MPV 9.7 (9.4-12.3) fL Immature Gran % (Auto) 0.1 (0.0-0.4) % Neut % (Auto) 50.5 (45-73) % Lymph % (Auto) 42.6 H (20-40) % [place] % (Auto) 5.5 (2-11) % Eos % (Auto) 0.9 (0-4) % Baso % (Auto) 0.4 (0-2) % Lymph # (Auto) 2.9 (1.2-4.9) X10*3/uL [place] # (Auto) 0.4 (0.1-1.2) X10*3/uL Eos # (Auto) 0.1 (0.0-0.4) X10*3/uL Baso # (Auto) 0.0 (0.0-0.2) X10*3/uL Abs Immat Gran (auto) 0.01 (0.00-0.03) X10*3/uL Absolute Neuts (auto) 3.5 (2.0-8.3) X10*3/uL Absolute Nucleated RBC 0.000 (0.0-0.012) X10*3/uL Nucleated RBC % (auto) 0.0 (0.0-0.2) /100WBC Sodium 145 (135-145) mmol/L Potassium 4.2 (3.3-5.1) mmol/L Chloride 108 (96-108) mmol/L Carbon Dioxide 30 H (22-29) mmol/L Anion Gap 11 L (12-20) BUN 10 (9-16) mg/dL Creatinine 0.61 (0.5-1.4) mg/dL Estim Creat Clear Calc 96.5 Estimated GFR > 60 Random Glucose 86 (60-115) mg/dL Calcium 9.3 (8.4-10.2) mg/dL Total Bilirubin 1.1 H (0.0-1.0) mg/dL AST 13 (5-31) U/L ALT 11 (0-31) U/L Alkaline Phosphatase 73 D (39-117) U/L Troponin I High Sens < 3.5 (<3.5-17.0) ng/L Total Protein 6.8 (6.5-8.0) g/dL Albumin 4.3 (3.5-5.0) g/dL Imaging Data CT scan - head: Radiologist's impression: IMPRESSION: No acute intracranial abnormality. ECG Data Attestation: I personally reviewed and interpreted this ECG as follows: Interpretation: sinus rate of 60, no st or twave changes. Poor quality secondary to tremor Discharge Plan Discharge Clinical Impression: Lightheadedness Migraine Qualifiers: Migraine type: unspecified Status migrainosus presence: without status migrainosus Intractability: not intractable Qualified Code(s): G43.909 - Migraine, unspecified, not intractable, without status migrainosus Patient Disposition: Home, Self-Care Instructions: Migraine Headache (ED), Lightheadedness (ED) Prescriptions: No Action fluticasone propionate 50 mcg/actuation spray,suspension 1 spray intranasal DAILY Qty: 48 RF: 2 loratadine 10 mg tablet 10 mg PO DAILY Qty: 90 RF: 1 albuterol sulfate 2.5 mg /3 mL (0.083 %) solution for nebulization 2.5 mg inhalation Q6H PRN (Reason: bronchospasm) 30 Days Qty: 360 RF: 6 cholecalciferol (vitamin D3) 50 mcg (2,000 unit) capsule 50 mcg PO DAILY Qty: 90 RF: 2 omeprazole 20 mg capsule,delayed release(DR/EC) 20 mg PO DAILY Qty: 90 RF: 1 magnesium oxide 400 mg (241.3 mg magnesium) tablet 400 mg PO DAILY 30 Days Qty: 30 RF: 1 famotidine [Pepcid] 20 mg tablet 20 mg PO BID 30 Days Qty: 60 RF: 1 cyclobenzaprine 5 mg tablet 5 mg PO Q8H PRN (Reason: pain (scale score 7-10)) 5 Days Qty: 14 RF: 0 lidocaine [Lidoderm] 5 % adhesive patch,medicated 1 patch topical DAILY MDD remove after 12 hours PRN (Reason: pain) Qty: 30 RF: 0 naproxen 500 mg tablet 500 mg PO BID PRN (Reason: pain) 10 Days Qty: 20 RF: 0 acetaminophen [Tylenol Extra Strength] 500 mg tablet 500 mg PO Q6H PRN (Reason: pain or fever) Qty: 20 RF: 0 carbidopa-levodopa 25-100 mg tablet 1 tab PO TID RF: 0 rosuvastatin 5 mg tablet 5 mg PO BEDTIME 90 Days Qty: 90 RF: 1 gabapentin 300 mg capsule 300 mg PO TID RF: 0 bisacodyl 5 mg tablet,delayed release (DR/EC) 0 mg PO RF: 0 albuterol sulfate [ProAir HFA] 90 mcg/actuation HFA aerosol inhaler 2 puff inhalation Q6H PRN (Reason: Shortness Of Breath Or Wheezing) 30 Days Qty: 6.7 RF: 0 lisinopril 5 mg tablet 5 mg PO DAILY 90 Days Qty: 90 RF: 0 divalproex 250 mg tablet,delayed release (DR/EC) 250 mg PO TID RF: 0 ropinirole 5 mg tablet 5 mg PO TID RF: 0 Breo Ellipta 100-25 mcg/dose blister with device 1 inh inhalation DAILY RF: 0 promethazine 25 mg tablet 25 mg PO Q4-6H PRN (Reason: Nausea) Qty: 60 RF: 2 Adult Probiotic 3 billion cell capsule 3,000 mmu cells PO DAILY Qty: 30 RF: 2 sennosides [Natural Senna Laxative] 8.6 mg tablet 8.6 mg PO BEDTIME PRN (Reason: constipation) Qty: 30 RF: 1 ondansetron 4 mg tablet,disintegrating 4 mg PO Q8H PRN (Reason: nausea and vomiting) Qty: 42 RF: 0 Referrals: Venita Arthur MD [Primary Care Provider] - 1 week
[2021-03-21] MEDS: Ketorolac Tromethamine 15 MG/ML VIAL 30 MG IVPUSH (19:42)
[2021-03-21 19:45] VITALS: BP 143/73; PULSE 57; RESP 16; O2SAT 100
--- NOTE | 2021-03-21 19:46 | PC.NURSE ---
IV established, pt medicated per MAR.
--- NOTE | 2021-03-21 20:04 | PC.NURSE ---
Pt medicated with Trulicity per MD order. This RN teaching daughter how to administer pen. Per MD, plan for straight cath to obtain UA.
--- NOTE | 2021-03-21 20:22 | PC.NURSE ---
Pt off to CT on hospital bed.
[2021-03-21 21:31] VITALS: BP 136/70; PULSE 59; RESP 16
== END 2021-03-21 21:35 | disposition home or self-care (01) ==
PROVIDERS: Emergency Provider Emergency Medicine; PCP Internal Medicine
DX: R42 Dizziness and giddiness (principal); G43.909 Migraine, unspecified, not intractable, without status migrainosus; I10 Essential (primary) hypertension
CPT/HCPCS: 36415; 70450; 80053; 84484; 85025; 93005; 96374; 96375; 99284; J1885; J2550

== ENCOUNTER 2021-04-20 22:41 | Emergency (ER) | payer OTHER, SELFPAY ==
[2021-04-20 22:44] VITALS: BP 158/78; PULSE 93; RESP 18; TEMP 36.4; O2SAT 99; BMI 23.6
--- NOTE | 2021-04-21 00:56 | PC.NURSE ---
PT EYE FLUSHED OUT WITH NORMAL SALINE 1 L AND PH CHECKED BY NOELLE MCKNIGHT AND PH WAS 7. PT WAS UNABLE TO TOLERATE DOING VISUAL TEST AT THIS TIME.
--- NOTE | 2021-04-21 00:57 | PC.NURSE ---
EYE DROP NOT AVAILABLE IN [facility] CLOSED GLOBAL SEARCH SHOWED NONE IN STOCK ON FLOORS.
== END 2021-04-21 01:02 | disposition home or self-care (01) ==
PROVIDERS: Emergency Provider Student in an Organized Health Care Education/Training Program
DX: H57.13 Ocular pain, bilateral (principal)
CPT/HCPCS: 99282

== ENCOUNTER → 2021-04-26 15:44 | Outpatient (BNVA) | payer OTHER, SELFPAY | PROVIDERS: Visit Provider Nurse Practitioner Family | DX: K21.9 Gastro-esophageal reflux disease without esophagitis (principal); R11.0 Nausea | CPT/HCPCS: 99212 ==

== ENCOUNTER → 2021-07-27 15:48 | Outpatient (BNVA) | payer OTHER, SELFPAY | PROVIDERS: PCP Internal Medicine; Referring Provider Internal Medicine; Visit Provider Nurse Practitioner Family | DX: K21.9 Gastro-esophageal reflux disease without esophagitis (principal); K59.09 Other constipation; R11.0 Nausea | CPT/HCPCS: 99212 ==

== ENCOUNTER → 2021-09-27 15:54 | Outpatient (BNVA) | payer OTHER, SELFPAY | PROVIDERS: PCP Internal Medicine; Referring Provider Internal Medicine; Visit Provider Nurse Practitioner Family | DX: K21.9 Gastro-esophageal reflux disease without esophagitis (principal); R10.13 Epigastric pain; K59.00 Constipation, unspecified | CPT/HCPCS: 99212 ==

== ENCOUNTER 2021-10-31 09:28 | Outpatient (REF) | payer OTHER, SELFPAY ==
[2021-11-01 00:01] LABS: CT PCR NOT DETECTED (Not Detect.); NG PCR NOT DETECTED (Not Detect.)
== END 2021-10-31 09:29 | disposition home or self-care (01) ==
LOC: HO.LAB 09:28
PROVIDERS: PCP Internal Medicine; Visit Provider Advanced Practice Midwife
DX: Z01.411 Encounter for gynecological examination (general) (routine) with abnormal findings (principal); N95.1 Menopausal and female climacteric states; N63.10 Unspecified lump in the right breast, unspecified quadrant
CPT/HCPCS: 87491; 87591

== ENCOUNTER 2021-11-08 08:59 | Outpatient (REF) | payer OTHER, SELFPAY ==
[2021-11-08 09:12] LABS: MANUAL DIFF FLAG NO
[2021-11-08 09:53] LABS: Alanine Aminotransferase 13 U/L (0-31); Albumin Level 4.2 g/dL (3.5-5.0); Alkaline Phosphatase 72 U/L (39-117); Anion Gap 12 (12-20); Aspartate Amino Transferase 14 U/L (5-31); Bilirubin Total 0.9 mg/dL (0.0-1.0); Blood Urea Nitrogen 10 mg/dL (9-16); Calcium 9.2 mg/dL (8.4-10.2); Carbon Dioxide 27 mmol/L (22-29); Chloride 106 mmol/L (96-108); Cholesterol 195 mg/dL; Estimated Glomerular Filt Rate > 60; Glucose Fasting 88 mg/dL (60-99); HDL Cholesterol 51 mg/dL; LDL Cholesterol Calculated 122 mg/dl; Potassium 4.3 mmol/L (3.3-5.1); Sodium 141 mmol/L (135-145); Total Protein 6.9 g/dL (6.5-8.0); Triglycerides 114 mg/dL
[2021-11-08 10:07] LABS: Basophils Percent Auto 0.3 % (0-2); Eosinophils Absolute Auto 0.1 X10*3/uL (0.0-0.4); Hematocrit 38.8 % (37.0-47.0); Hemoglobin 12.6 g/dl (12.0-16.0); Imm Gran Abs Auto 0.02 X10*3/uL (0.00-0.03); Imm Gran Pct Auto 0.3 % (0.0-0.4); Lymphocytes Absolute Auto 2.3 X10*3/uL (1.2-4.9); Lymphocytes Percent Auto 33.1 % (20-40); Mean Corpuscular HGB Conc 32.5 g/dl (31.0-35.0); Mean Corpuscular Hemoglobin 29.4 pg (27.0-33.0); Mean Corpuscular Volume 90.7 fL (80.0-98.0); Mean Platelet Volume 9.7 fL (9.4-12.3); Monocytes Absolute Auto 0.4 X10*3/uL (0.1-1.2); Monocytes Percent Auto 6.1 % (2-11); Neutrophils Absolute Auto 4.1 x10*3/uL (2.0-8.3); Neutrophils Percent Auto 59.2 % (45-73); Platelet Count 286 X10*3/uL (160-400); Red Blood Count 4.28 X10*6/uL (4.20-5.50); Red Cell Distribution Width 12.9 % (11.0-16.0); White Blood Count 6.9 X10*3/uL (4.8-10.8)
[2021-11-12 14:11] LABS: Vitamin D 25-OH, D2 6 ng/mL; Vitamin D 25-OH, D3 34 ng/mL; Vitamin D 25-OH, Total 40 ng/mL (30-100)
== END 2021-11-08 09:00 | disposition home or self-care (01) ==
LOC: HO.LAB 08:59
PROVIDERS: PCP Internal Medicine; Visit Provider Internal Medicine
DX: E78.2 Mixed hyperlipidemia (principal); E78.5 Hyperlipidemia, unspecified; E55.9 Vitamin D deficiency, unspecified; D64.9 Anemia, unspecified
CPT/HCPCS: 36415; 80053; 80061; 82306; 85025

== ENCOUNTER 2021-11-16 12:28 | Outpatient (REF) | payer OTHER, SELFPAY ==
--- NOTE | ~2021-11-16 | US_ITS ---
EXAMINATION: US DIAGNOSTIC ULTRASOUND BREAST, targeted right breast ultrasound CLINICAL INFORMATION: Question enlarging right breast mass. COMPARISON: Mammography of same day as well as studies dating back to AprilMay 24, 2022 TECHNIQUE: Ultrasound of the breast is performed with real-time blanco scale imaging and color Doppler. FINDINGS: Targeted right breast ultrasound to measure base of the question enlarging lump to represent previously biopsied benign well-circumscribed lesion which is wider than it is tall with some internal calcifications and some peripheral blood flow with no internal blood flow appreciated. Results are discussed with the patient at time of visit. US/US breast RT limited IMPRESSION: There are no significant changes from prior study. ASSESSMENT: BI-RADS 2: Benign RECOMMENDATION: Routine annual mammography screening due in 12 months.
--- NOTE | ~2021-11-16 | MM_ITS ---
EXAMINATION: MM DIAGNOSTIC DIGITAL BREAST TOMOSYNTHESIS, BILATERAL US TARGETED BREAST, RIGHT CLINICAL INFORMATION: Enlarging palpable abnormality of the right breast. Screening left breast study. History of benign right breast mass 4 o'clock location which has been previous biopsy on 05/24/2006. The lifetime risk of breast cancer based on the Tyrer-Cuzick Model is 11.0.%. COMPARISON: Mammography: 05/13/2020 and studies dating back to 05/24/2006. TECHNIQUE: Digital breast tomosynthesis is performed in both the craniocaudal and mediolateral oblique views along with computer-aided detection (CAD). Synthesized 2D images are generated from the tomosynthesis. Targeted right breast ultrasound. FINDINGS: The breasts are heterogeneously dense, which may obscure small masses (ACR BI-RADS breast composition Category c). There is stable parenchymal pattern of the left breast with no new abnormal dominant mass or suspicious grouping of microcalcifications. The patient's palpable abnormality corresponds to the previously biopsied and stable circumscribed density about the inferomedial aspect of the right breast containing calcification. No new abnormal dominant mass is identified and no new suspicious grouping of calcifications is seen. ULTRASOUND: Targeted right breast ultrasound demonstrates the question enlarging lump to represent previously biopsied benign well circumscribed lesion which is wider than it is tall with some internal calcifications and some peripheral blood flow with no internal blood flow appreciated. Results are discussed with the patient at time of visit. MM/MM tomosynthesis diagnostic BI IMPRESSION: There are no significant changes from prior study. ASSESSMENT: BI-RADS 2: Benign. RECOMMENDATION: Routine annual mammography screening due in 12 months. This patient's information was entered into a reminder system with a target due date for their next mammogram.
== END 2021-11-16 12:29 | disposition home or self-care (01) ==
LOC: HO.MAMMO 12:28
PROVIDERS: Visit Provider Advanced Practice Midwife
DX: N63.14 Unspecified lump in the right breast, lower inner quadrant (principal)
CPT/HCPCS: 76642; 77062; 77066

== ENCOUNTER → 2022-03-28 14:06 | Outpatient (BNVA) | payer OTHER, SELFPAY | PROVIDERS: PCP Internal Medicine; Visit Provider Nurse Practitioner Family | DX: K21.9 Gastro-esophageal reflux disease without esophagitis (principal); R10.9 Unspecified abdominal pain | CPT/HCPCS: 99212 ==

== ENCOUNTER 2022-04-19 07:31 | Outpatient (REF) | payer OTHER, SELFPAY ==
--- NOTE | ~2022-04-19 | XR_ITS ---
EXAMINATION: XR LUMBOSACRAL SPINE CLINICAL INFORMATION: Low back pain COMPARISON: None TECHNIQUE: Three views of the lumbosacral spine. FINDINGS: Bone alignment is normal. No fracture or dislocation is seen. Disc spaces are normal. There is mild degenerative spondylosis greatest at L3-L4. There is lower lumbar spine facet arthritis. There is a calcification in the pelvis probably representing a calcified fibroid. XR/XR lumbar spine 2-3V IMPRESSION: Mild degenerative changes.
== END 2022-04-19 07:32 | disposition home or self-care (01) ==
LOC: HO.XRAY 07:31
PROVIDERS: PCP Internal Medicine; Visit Provider Internal Medicine
DX: M54.50 Low back pain, unspecified (principal)
CPT/HCPCS: 72100

== ENCOUNTER 2022-06-13 10:00 | Outpatient (RCR) | payer OTHER, SELFPAY | END 2022-07-06 07:30 | disposition home or self-care (01) | LOC: HO.PT 10:00 | PROVIDERS: PCP Internal Medicine; Visit Provider Internal Medicine | DX: M54.50 Low back pain, unspecified (principal) | CPT/HCPCS: 97014; 97033; 97110; 97112; 97140; 97162 ==

== ENCOUNTER 2022-09-06 09:31 | Outpatient (REF) | payer OTHER, SELFPAY ==
--- NOTE | ~2022-09-06 | MM_ITS ---
EXAMINATION: BONE DENSITOMETRY CLINICAL INDICATION: Unspecified menopausal and perimenopausal disorder. COMPARISON: Baseline BD dated 10/20/2011. TECHNIQUE: Using a [employer] Lynk DXA System (software version: 13.1) manufactured by [employer], dual-energy x-ray absorptiometry was performed of the lumbar spine and left hip. The images are of good technical quality. Summary results are attached. FINDINGS: AP SPINE L1-L4: Current: BMD 1.026 g/cm2, Z-score -0.4, T-score -1.3, osteopenia, 17.2% decrease from baseline (<5% change is not significant). Baseline: BMD 1.239 g/cm2. LEFT FEMUR, NECK: Current: BMD 0.705 g/cm2, Z-score -1.3, T-score -2.4, osteopenia. Baseline: BMD 0.987 g/cm2. LEFT FEMUR, TOTAL: Current: BMD 0.725 g/cm2, Z-score -1.5, T-score -2.2, osteopenia, 27.1% decrease from baseline (<5% change is not significant). Baseline: BMD 0.995 g/cm2. IDENTIFIED RISK FACTORS: Menopause. HISTORY OF FRACTURE: None listed. MEDICATIONS: Vitamin D. MM/XR DEXA axial skeleton IMPRESSION: 1. DIAGNOSIS: Osteopenia based on the lowest T-score value of -2.4 in the femoral neck applying World Health Organization criteria. 2. 10-YEAR FRACTURE RISK PREDICTION, FRAX: Major osteoporotic fracture (clinical spine, forearm, hip or shoulder) 5.4%. Hip fracture 0.9%. 3. Treatment Recommendations: NOF guidelines recommend consideration for treatment in postmenopausal women and men age 50 and older presenting with the following: -A hip or vertebral (clinical or morphometric) fracture. -T-score less than or equal to -2.5 at the femoral neck or spine after appropriate evaluation to exclude secondary causes. -Low bone mass at the hip or spine and a 10-year fracture probability by FRAX of greater than or equal to 3% for hip fracture or greater than or equal to 20% for major osteoporotic fracture based on the [place] adapted WHO algorithm. 4. Other Recommendations: All treatment decisions require clinical judgment and consideration of individual patient factors, including patient preferences, comorbidities, previous drug use, risk factors not captured in the FRAX model (e.g. frailty, falls, vitamin D deficiency, increased bone turnover, interval significant decline in bone density) and possible under or overestimation of fracture risk by FRAX. Additional medical evaluation for secondary cause of low bone mineral density may be appropriate. FUTURE SCAN RECOMMENDATION: People with diagnosed cases of osteoporosis or at high risk for fracture should have regular bone mineral density tests. For patients eligible for Medicare, routine testing is allowed once every 2 years. The testing frequency can be increased to one year for patients who have rapidly progressing disease, those who are receiving or discontinuing medical therapy to restore bone mass, or have additional risk factors.
--- NOTE | ~2022-09-06 | MM_ITS ---
EXAMINATION: MM SCREENING DIGITAL BREAST TOMOSYNTHESIS, BILATERAL CLINICAL INFORMATION: Screening. Asymptomatic. The lifetime risk of breast cancer based on the Tyrer-Cuzick Model is 9%. COMPARISON: Mammography: 11/16/2021, 05/13/2020, 01/14/2019, 12/24/2017; right breast ultrasound 11/16/2021. TECHNIQUE: Digital breast tomosynthesis is performed in both the craniocaudal and mediolateral oblique views along with computer-aided detection (CAD). Synthesized 2D images are generated from the tomosynthesis. FINDINGS: There are scattered areas of fibroglandular density (ACR BI-RADS breast composition Category b). There is a chronic smooth macrolobulated mass inferior medial right breast with associated coarse calcifications similar to prior exams. Neither breast shows interval significant mass or architectural abnormality or abnormal calcifications. The axilla and skin contours are unremarkable. No significant changes. MM/MM tomosynthesis screening BI IMPRESSION: No significant changes from prior studies. ASSESSMENT: BI-RADS 2: Benign RECOMMENDATION: Routine annual mammography screening. This patient's information was entered into a reminder system with a target due date for their next mammogram.
== END 2022-09-06 09:32 | disposition home or self-care (01) ==
LOC: HO.MAMMO 09:31
PROVIDERS: Visit Provider Internal Medicine
DX: Z12.31 Encounter for screening mammogram for malignant neoplasm of breast (principal); Z13.820 Encounter for screening for osteoporosis; Z78.0 Asymptomatic menopausal state
CPT/HCPCS: 77063; 77067; 77080

== ENCOUNTER 2022-09-10 11:05 | Emergency (ER) | payer OTHER, SELFPAY ==
[2022-09-10 11:08] VITALS: BP 140/75; PULSE 71; RESP 18; TEMP 36.7; O2SAT 98; BMI 21.6
[2022-09-10] MEDS: Ketorolac Tromethamine 30 MG/ML VIAL IM (12:34)
[2022-09-10] MEDS: oxyCODONE HCl Immed Release 5 MG TABLET PO ×2 (12:35→12:59)
[2022-09-10] MEDS: Acetaminophen 325 MG TABLET 975 MG PO (12:35)
--- NOTE | 2022-09-10 12:56 | ED.BACK ---
HPI - Back Pain/Injury General Chief Complaint: Back Pain/Injury Stated Complaint: Back pain Time Seen by Provider: 09/10/22 11:53 History of Present Illness HPI Narrative: Patient complains of flare up of back pain similar to prior episodes with pain in the right lower back radiating down her leg, there is no weakness or loss of sensation, which began this morning when she bent over to put on a shoe, she did not fall There is no change to bowel or bladder there is no incontinence there is no dysuria , no trauma beyond bending over this morning No IV drug use no fevers no rashes Related Data Home Medications Medication Instructions Recorded Confirmed divalproex 250 mg tablet,delayed 250 mg PO TID 07/15/20 08/08/22 release fluticasone furoate 100 1 inh inhalation DAILY 07/15/20 08/08/22 mcg-vilanterol 25 mcg/dose inhalation powder (Breo Ellipta) ropinirole 5 mg tablet 5 mg PO TID 07/15/20 08/08/22 gabapentin 300 mg capsule 300 mg PO TID 09/21/20 08/08/22 carbidopa 25 mg-levodopa 100 mg 1 tab PO TID 11/11/20 08/08/22 tablet primidone 50 mg tablet 50 mg PO BID 10/31/21 08/08/22 famotidine 20 mg tablet 20 mg PO DAILY 11/09/21 08/08/22 Previous Rx's Medication Instructions Recorded fluticasone propionate 50 1 spray intranasal DAILY #48 mL 09/15/20 mcg/actuation nasal spray,suspension cholecalciferol (vitamin D3) 50 50 mcg PO DAILY #90 caps 11/26/20 mcg (2,000 unit) capsule acetaminophen 500 mg tablet 500 mg PO Q6H PRN pain or fever 11/27/20 (Tylenol Extra Strength) #20 tabs nebulizers (VixOne Nebulizer-Adult #1 ea 08/17/21 Mask) sennosides 8.6 mg tablet (Natural 8.6 mg PO BEDTIME PRN constipation 09/27/21 Senna Laxative) #90 tabs albuterol sulfate 2.5 mg/3 mL 2.5 mg (3 mL) inhalation Q6H PRN 11/09/21 (0.083 %) solution for nebulization bronchospasm 30 days #360 mL loratadine 10 mg tablet 10 mg PO DAILY #90 tabs 03/29/22 lisinopril 5 mg tablet 5 mg PO DAILY #90 tabs 06/11/22 sucralfate 100 mg/mL oral 10 ml PO BEDTIME #400 mL 06/23/22 suspension ondansetron 4 mg disintegrating 4 mg PO Q8H PRN nausea and 06/26/22 tablet vomiting 90 days #270 tabs omeprazole 20 mg capsule,delayed 20 mg PO DAILY #90 caps 08/12/22 release rosuvastatin 5 mg tablet 5 mg PO BEDTIME 90 days #90 tabs 08/24/22 Ventolin HFA 90 mcg/actuation 2 puff inhalation Q6H PRN 08/31/22 aerosol inhaler (albuterol sulfate) shortness of breath or wheezing 30 days #8 grams magnesium oxide 400 mg (241.3 mg 400 mg PO DAILY 30 days #90 tabs 09/05/22 magnesium) tablet acetaminophen 500 mg tablet 1,000 mg PO TID PRN pain #30 tabs 09/10/22 cyclobenzaprine 5 mg tablet 5 mg PO TID PRN muscle spasm #10 09/10/22 tabs ibuprofen 600 mg tablet 600 mg PO Q6H PRN pain #20 tabs 09/10/22 oxycodone 5 mg tablet 5 mg PO Q6H PRN pain #14 tabs 09/10/22 Allergies Allergy/AdvReac Type Severity Reaction Status Date / Time Seasonal Allergies Allergy Mild runny nose Verified 09/10/22 11:08 [facility] Past Medical History Source: nursing notes reviewed Medical History Abdominal discomfort Allergic rhinitis Anemia Asthma Family history of hypertension Fatigue Gastritis GERD (gastroesophageal reflux disease) H. pylori infection Hypertension Hypovitaminosis D Migraine Mixed hyperlipidemia Moderate asthma Nausea Parkinson disease Parkinson disease Plantar fasciitis, right Restless leg syndrome Right knee pain Tremors of nervous system Tubular adenoma Surgical History History of breast lump/mass excision History of carpal tunnel release History of colonoscopy History of esophagogastroduodenoscopy (EGD) History of surgery Hx of tubal ligation Family History Family History Father HTN (hypertension) Asthma Mother HTN (hypertension) Paternal Grandfather Prostate cancer Maternal Grandfather Prostate cancer Family/Other Stomach cancer Maternal Aunt Stomach cancer Social History Social History Household Members: Spouse and Children Housing: House Alcohol intake: never Patient Tobacco Use Status: Never used Tobacco e-Cigarette/Vaping Use: Never Used Second Hand Smoke Exposure: No Advance Directives: Yes Advance Directives on File: Yes Advance Directives Date on File: 08/27/14 service: No Current occupational status: unemployed Sexual orientation: Straight/Heterosexual Gender identity: Female Cognitive needs: No Hearing needs: No Vision needs: Yes Physical Exam Vital Signs: Vital Signs: Last Vital Signs Temp 98.0 F 09/10/22 11:08 Pulse 71 09/10/22 11:08 Resp 18 09/10/22 11:08 BP 140/75 H 09/10/22 11:08 Pulse Ox 98 09/10/22 11:08 O2 Del Method 09/10/22 11:08 BMI result Body Mass Index 21.6 General appearance no acute distress Head is normocephalic atraumatic Neck is supple nontender Chest wall nontender Abdomen is soft nontender The back had lower lumbar tenderness worse on the right side, the skin of the back was normal without wound rash or redness, there is no focal bony tenderness and there was no CVA tenderness Extremities full range of motion x4 Neuro motor is 5/5 x4 in distal extremities, sensation is intact in distal extremities Course Course Course Narrative: Patient is treated with analgesics in the emergency room with good improvement which enabled her to be more comfortable on departure There were no red flags, no fever no weakness no signs of urinary tract infection no changes to bowel or bladder Medications Administered Discontinued Medications Generic Name Dose Route Start Last Admin Trade Name Freq PRN Reason Stop Dose Admin Acetaminophen 975 mg 09/10/22 12:27 09/10/22 12:35 Acetaminophen 325 Mg Tablet PO 09/10/22 12:28 975 mg ONCE ONE Administration Ketorolac Tromethamine 30 mg 09/10/22 12:25 09/10/22 12:34 Ketorolac Tromethamine 30 Mg/Ml Vial IM 09/10/22 12:26 30 mg ONCE ONE Administration Oxycodone HCl 5 mg 09/10/22 12:27 09/10/22 12:35 Oxycodone Hcl Immed Release 5 Mg Tablet PO 09/10/22 12:28 5 mg ONCE ONE Administration Discharge Plan Discharge Clinical Impression: Back pain Patient Disposition: Home, Self-Care Additional Instructions: Or follow with primary doctor Use pain medication as needed, most back pain flare ups resolve on their own Return any time any worse condition or any concerns Prescriptions: New acetaminophen 500 mg tablet 1,000 mg PO TID PRN (Reason: pain) Qty: 30 0RF ibuprofen 600 mg tablet 600 mg PO Q6H PRN (Reason: pain) Qty: 20 0RF cyclobenzaprine 5 mg tablet 5 mg PO TID PRN (Reason: muscle spasm) Qty: 10 0RF oxycodone 5 mg tablet 5 mg PO Q6H PRN (Reason: pain) Qty: 14 0RF Rx Instructions: Partial Fill upon patient request. No Action fluticasone propionate 50 mcg/actuation spray,suspension 1 spray intranasal DAILY Qty: 48 2RF cholecalciferol (vitamin D3) 50 mcg (2,000 unit) capsule 50 mcg PO DAILY Qty: 90 2RF (DME) VixOne Nebulizer-Adult Mask Misc See Rx Instructions .Route Qty: 1 0RF Rx Instructions: As directed loratadine 10 mg tablet 10 mg PO DAILY Qty: 90 1RF lisinopril 5 mg tablet 5 mg PO DAILY Qty: 90 0RF sucralfate 100 mg/mL suspension 10 ml PO BEDTIME Qty: 400 5RF ondansetron 4 mg tablet,disintegrating 4 mg PO Q8H PRN (Reason: nausea and vomiting) 90 Days Qty: 270 0RF omeprazole 20 mg capsule,delayed release(DR/EC) 20 mg PO DAILY Qty: 90 1RF rosuvastatin 5 mg tablet 5 mg PO BEDTIME 90 Days Qty: 90 1RF albuterol sulfate [Ventolin HFA] 90 mcg/actuation HFA aerosol inhaler 2 puff inhalation Q6H PRN (Reason: shortness of breath or wheezing) 30 Days Qty: 8 2RF magnesium oxide 400 mg (241.3 mg magnesium) tablet 400 mg PO DAILY 30 Days Qty: 90 4RF acetaminophen [Tylenol Extra Strength] 500 mg tablet 500 mg PO Q6H PRN (Reason: pain or fever) Qty: 20 0RF carbidopa-levodopa 25-100 mg tablet 1 tab PO TID gabapentin 300 mg capsule 300 mg PO TID famotidine 20 mg tablet 20 mg PO DAILY albuterol sulfate 2.5 mg /3 mL (0.083 %) solution for nebulization 2.5 mg inhalation Q6H PRN (Reason: bronchospasm) 30 Days Qty: 360 6RF divalproex 250 mg tablet,delayed release (DR/EC) 250 mg PO TID ropinirole 5 mg tablet 5 mg PO TID Rx Instructions: administer 1-3 hours before bedtime Breo Ellipta 100-25 mcg/dose blister with device 1 inh inhalation DAILY primidone 50 mg tablet 50 mg PO BID sennosides [Natural Senna Laxative] 8.6 mg tablet 8.6 mg PO BEDTIME PRN (Reason: constipation) Qty: 90 3RF
--- NOTE | 2022-09-10 13:00 | PC.NURSE ---
pt medicated per provider order for 9/10 back pain, pt reports slight improvement after previous medications. no new orders at this time.
== END 2022-09-10 13:14 | disposition home or self-care (01) ==
PROVIDERS: Emergency Provider Emergency Medicine; PCP Internal Medicine
DX: M54.50 Low back pain, unspecified (principal); Z79.899 Other long term (current) drug therapy
CPT/HCPCS: 96372; 99283; 99284; J1885

== ENCOUNTER 2022-10-01 10:21 | Emergency (ER) | payer OTHER, SELFPAY ==
[2022-10-01 10:38] VITALS: BP 125/71; PULSE 81; RESP 16; TEMP 36.9; O2SAT 100; BMI 24.7
--- NOTE | 2022-10-01 10:53 | ED_ITS ---
HPI - Back Pain/Injury General Chief Complaint: Back Pain/Injury Stated Complaint: back pain Time Seen by Provider: 10/01/22 10:52 Source: patient and old records reviewed Mode of arrival: ambulatory Limitations: no limitations History of Present Illness HPI Narrative: 56 yo female with history of Parkinson's disease, HTN, asthma, restless leg symdrome, sciatica who presents to the ER for ongoing sciatica pain for the last several weeks. She was seen here for the same on 09/10 and discharged with prescriptions for tylenol, ibuprofen, Flexeril and oxycodone. She reports the pain has continued. It is across her entire lower back and radiates to her right buttock. It is worse with movement and walking. No numbness, weakness, or tingling in the LE. No bowel or bladder issues. reports she suffers from chronic N/V and follows w/ GI - she has been throwing up the pills previously prescribed. No abdominal pains. MD elicited complaint: back pain Pertinent past history: prior back pain Onset (ago): week(s) Timing: constant Severity: severe Similar Symptoms Previously: Yes Quality: sharp, stabbing and spasming Location: lumbar spine, right lower back and left lower back Radiation: buttocks Exacerbating factors: movement and walking Relieving factors: immobilization and medication Context: unknown Associated symptoms: denies other symptoms Related Data Home Medications Medication Instructions Recorded Confirmed divalproex 250 mg tablet,delayed 250 mg PO TID 07/15/20 08/08/22 release fluticasone furoate 100 1 inh inhalation DAILY 07/15/20 08/08/22 mcg-vilanterol 25 mcg/dose inhalation powder (Breo Ellipta) ropinirole 5 mg tablet 5 mg PO TID 07/15/20 08/08/22 gabapentin 300 mg capsule 300 mg PO TID 09/21/20 08/08/22 carbidopa 25 mg-levodopa 100 mg 1 tab PO TID 11/11/20 08/08/22 tablet primidone 50 mg tablet 50 mg PO BID 10/31/21 08/08/22 famotidine 20 mg tablet 20 mg PO DAILY 11/09/21 08/08/22 Previous Rx's Medication Instructions Recorded fluticasone propionate 50 1 spray intranasal DAILY #48 mL 09/15/20 mcg/actuation nasal spray,suspension cholecalciferol (vitamin D3) 50 50 mcg PO DAILY #90 caps 11/26/20 mcg (2,000 unit) capsule acetaminophen 500 mg tablet 500 mg PO Q6H PRN pain or fever 11/27/20 (Tylenol Extra Strength) #20 tabs nebulizers (VixOne Nebulizer-Adult #1 ea 08/17/21 Mask) sennosides 8.6 mg tablet (Natural 8.6 mg PO BEDTIME PRN constipation 09/27/21 Senna Laxative) #90 tabs albuterol sulfate 2.5 mg/3 mL 2.5 mg (3 mL) inhalation Q6H PRN 11/09/21 (0.083 %) solution for nebulization bronchospasm 30 days #360 mL sucralfate 100 mg/mL oral 10 ml PO BEDTIME #400 mL 06/23/22 suspension ondansetron 4 mg disintegrating 4 mg PO Q8H PRN nausea and 06/26/22 tablet vomiting 90 days #270 tabs omeprazole 20 mg capsule,delayed 20 mg PO DAILY #90 caps 08/12/22 release rosuvastatin 5 mg tablet 5 mg PO BEDTIME 90 days #90 tabs 08/24/22 Ventolin HFA 90 mcg/actuation 2 puff inhalation Q6H PRN 08/31/22 aerosol inhaler (albuterol sulfate) shortness of breath or wheezing 30 days #8 grams magnesium oxide 400 mg (241.3 mg 400 mg PO DAILY 30 days #90 tabs 09/05/22 magnesium) tablet oxycodone 5 mg tablet 5 mg PO Q6H PRN pain #14 tabs 09/10/22 lisinopril 5 mg tablet 5 mg PO DAILY #90 tabs 09/13/22 acetaminophen 500 mg tablet 1,000 mg PO TID PRN pain #30 tabs 09/19/22 cyclobenzaprine 5 mg tablet 5 mg PO TID PRN muscle spasm #10 09/19/22 tabs ibuprofen 600 mg tablet 600 mg PO Q6H PRN pain #20 tabs 09/19/22 loratadine 10 mg tablet 10 mg PO DAILY #90 tabs 09/27/22 cyclobenzaprine 10 mg tablet 10 mg PO TID PRN muscle spasm #14 10/01/22 tabs lidocaine 5 % topical patch 1 patch topical DAILY #15 ea 10/01/22 ondansetron 4 mg disintegrating 4 mg PO Q8H PRN nausea and 10/01/22 tablet vomiting #10 tabs oxycodone 5 mg tablet 5 mg PO Q8H PRN severe pain (scale 10/01/22 score 7-10) #6 tabs prednisone 20 mg tablet 40 mg PO DAILY #10 tabs 10/01/22 Allergies Allergy/AdvReac Type Severity Reaction Status Date / Time Seasonal Allergies Allergy Mild runny nose Verified 09/10/22 11:08 Review of Systems Review of Systems: Yes all other systems are reviewed and are negative [facility] Past Medical History Medical History Abdominal discomfort Allergic rhinitis Anemia Asthma Family history of hypertension Fatigue Gastritis GERD (gastroesophageal reflux disease) H. pylori infection Hypertension Hypovitaminosis D Migraine Mixed hyperlipidemia Moderate asthma Nausea Parkinson disease Parkinson disease Plantar fasciitis, right Restless leg syndrome Right knee pain Tremors of nervous system Tubular adenoma Surgical History History of breast lump/mass excision History of carpal tunnel release History of colonoscopy History of esophagogastroduodenoscopy (EGD) History of surgery Hx of tubal ligation Family History Family History Father HTN (hypertension) Asthma Mother HTN (hypertension) Paternal Grandfather Prostate cancer Maternal Grandfather Prostate cancer Family/Other Stomach cancer Maternal Aunt Stomach cancer Social History Social History Household Members: Spouse and Children Housing: House Alcohol intake: never Patient Tobacco Use Status: Never used Tobacco e-Cigarette/Vaping Use: Never Used Second Hand Smoke Exposure: No Advance Directives: Yes Advance Directives Information Provided: Yes Advance Directives on File: No Advance Directives Date on File: 08/27/14 service: No Current occupational status: unemployed Sexual orientation: Straight/Heterosexual Gender identity: Female Cognitive needs: No Hearing needs: No Vision needs: Yes Physical Exam Vital Signs: Vital Signs: Last Vital Signs Temp 98.4 F 10/01/22 10:38 Pulse 81 10/01/22 10:38 Resp 16 10/01/22 10:38 BP 125/71 10/01/22 10:38 Pulse Ox 100 10/01/22 10:38 O2 Del Method 10/01/22 10:38 BMI result Body Mass Index 24.7 Appearance: Alert. Oriented X3. No acute distress. HEENT: normal inspection CVS: Normal heart rate and rhythm. Pulses normal. Respiratory: No respiratory distress. Skin: Skin warm and dry. Normal skin color. Normal skin turgor. No rashes. Back: normal inspection, tenderness of the entire lumbar area. +straight leg raise test on the right Extremities: normal inspection x4 Neuro: Oriented X 3. No motor deficit. No sensory deficit. Slow but steady gait Course Course Course Narrative: 56 yo female with history of sciatica, parkinson's disease, HTN presenting with ongoing nontraumatic lower back for the last several weeks. No red flag symptoms of LBP. +SI joint tenderness on the right. Reports relief from shot given during last visit - prior visit reviewed - she was given toradol IM, oxycodone and tylenol. will repeat treatment and reevaluate. Reevaluation(s) Reevaluation #1: On evaluation pain is much improved. Will send home with pain control, antiemetics. She has an appointment with her PCP this week. She will ask about physical therapy and further imaging. Comfortable discharge home with her clayton valencia. All questions were answered. Stable for DC Medications Administered Discontinued Medications Generic Name Dose Route Start Last Admin Trade Name Joeyq PRN Reason Stop Dose Admin Acetaminophen 975 mg 10/01/22 11:06 10/01/22 11:15 Acetaminophen 325 Mg Tablet PO 10/01/22 11:07 975 mg ONCE ONE Administration Ketorolac Tromethamine 30 mg 10/01/22 11:06 10/01/22 11:16 Ketorolac Tromethamine 30 Mg/Ml Vial IM 10/01/22 11:07 30 mg ONCE ONE Administration Lidocaine 1 patch 10/01/22 11:06 10/01/22 11:16 Lidocaine 4 % Patch Adh..Patch TRANSDERMA 10/01/22 11:07 1 patch ONCE ONE Administration Protocol Oxycodone HCl 5 mg 10/01/22 11:06 10/01/22 11:16 Oxycodone Hcl Immed Release 5 Mg Tablet PO 10/01/22 11:07 5 mg ONCE ONE Administration Medical Decision Making Differential Diagnosis Differential Diagnoses: The differential diagnosis associated with the presentation includes Inflammatory disorders, malignancy, trauma, osteoporosis, nerve root compression, radiculopathy, plexopathy, degenerative disc disease, disc herniation, spinal stenosis, sacroiliac joint dysfunction, facet joint injury, less likely infection?including epidural abscess, diskitis Radiology Impression Discussion of test interpretation with radiology: I have reviewed the radiologist's reading. Radiologist Impression: XR from [facility] showing mild degenerative changes Independent Historian Clinical information obtained from an independent historian. 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 Use ice several times per day for 20 minutes at a time for the next 48 hours and then change to heat. Take medications as prescribed to help with pain and discomfort. Follow up with your Primary Care Doctor this week. If your pain worsens, if you develop new numbness, tingling, weakness, loss of function or incontinence call 911 or come back to the ER right away for evaluation. Sin doblar, levantar o torcer. Use hielo varias veces al d?a dolores 20 minutos a la vez dolores las pr?ximas 48 horas y luego cambie a calor. [place] los medicamentos seg?n lo prescrito para ayudar con el dolor y la incomodidad. Adriane un seguimiento con young m?dico de atenci?n primaria esta semana. Si young dolor empeora, si desarrolla entumecimiento, hormigueo, debilidad, p?rdida de funci?n o incontinencia, llame al 911 o regrese a la henry de emergencias de inmediato para mena evaluaci?n. Prescriptions: New prednisone 20 mg tablet 40 mg PO DAILY Qty: 10 0RF cyclobenzaprine 10 mg tablet 10 mg PO TID PRN (Reason: muscle spasm) Qty: 14 0RF lidocaine 5 % adhesive patch,medicated 1 patch topical DAILY Qty: 15 0RF Rx Instructions: leave on most painful area for up to 12 hrs ondansetron 4 mg tablet,disintegrating 4 mg PO Q8H PRN (Reason: nausea and vomiting) Qty: 10 0RF oxycodone 5 mg tablet 5 mg PO Q8H PRN (Reason: severe pain (scale score 7-10)) Qty: 6 0RF Rx Instructions: Partial Fill upon patient request. No Action fluticasone propionate 50 mcg/actuation spray,suspension 1 spray intranasal DAILY Qty: 48 2RF cholecalciferol (vitamin D3) 50 mcg (2,000 unit) capsule 50 mcg PO DAILY Qty: 90 2RF (DME) VixOne Nebulizer-Adult Mask Misc See Rx Instructions .Route Qty: 1 0RF Rx Instructions: As directed sucralfate 100 mg/mL suspension 10 ml PO BEDTIME Qty: 400 5RF ondansetron 4 mg tablet,disintegrating 4 mg PO Q8H PRN (Reason: nausea and vomiting) 90 Days Qty: 270 0RF omeprazole 20 mg capsule,delayed release(DR/EC) 20 mg PO DAILY Qty: 90 1RF rosuvastatin 5 mg tablet 5 mg PO BEDTIME 90 Days Qty: 90 1RF albuterol sulfate [Ventolin HFA] 90 mcg/actuation HFA aerosol inhaler 2 puff inhalation Q6H PRN (Reason: shortness of breath or wheezing) 30 Days Qty: 8 2RF magnesium oxide 400 mg (241.3 mg magnesium) tablet 400 mg PO DAILY 30 Days Qty: 90 4RF lisinopril 5 mg tablet 5 mg PO DAILY Qty: 90 0RF acetaminophen 500 mg tablet 1,000 mg PO TID PRN (Reason: pain) Qty: 30 0RF cyclobenzaprine 5 mg tablet 5 mg PO TID PRN (Reason: muscle spasm) Qty: 10 0RF ibuprofen 600 mg tablet 600 mg PO Q6H PRN (Reason: pain) Qty: 20 0RF loratadine 10 mg tablet 10 mg PO DAILY Qty: 90 1RF acetaminophen [Tylenol Extra Strength] 500 mg tablet 500 mg PO Q6H PRN (Reason: pain or fever) Qty: 20 0RF carbidopa-levodopa 25-100 mg tablet 1 tab PO TID oxycodone 5 mg tablet 5 mg PO Q6H PRN (Reason: pain) Qty: 14 0RF Rx Instructions: Partial Fill upon patient request. gabapentin 300 mg capsule 300 mg PO TID famotidine 20 mg tablet 20 mg PO DAILY albuterol sulfate 2.5 mg /3 mL (0.083 %) solution for nebulization 2.5 mg inhalation Q6H PRN (Reason: bronchospasm) 30 Days Qty: 360 6RF divalproex 250 mg tablet,delayed release (DR/EC) 250 mg PO TID ropinirole 5 mg tablet 5 mg PO TID Rx Instructions: administer 1-3 hours before bedtime Breo Ellipta 100-25 mcg/dose blister with device 1 inh inhalation DAILY primidone 50 mg tablet 50 mg PO BID sennosides [Natural Senna Laxative] 8.6 mg tablet 8.6 mg PO BEDTIME PRN (Reason: constipation) Qty: 90 3RF
[2022-10-01] MEDS: Acetaminophen 325 MG TABLET 975 MG PO (11:15)
[2022-10-01] MEDS: Ketorolac Tromethamine 30 MG/ML VIAL IM (11:16)
[2022-10-01] MEDS: oxyCODONE HCl Immed Release 5 MG TABLET PO (11:16)
[2022-10-01] MEDS: Lidocaine 4 % Patch ADH..PATCH 1 PATCH TRANSDERMA (11:16)
== END 2022-10-01 12:35 | disposition home or self-care (01) ==
PROVIDERS: Emergency Provider Student in an Organized Health Care Education/Training Program; PCP Internal Medicine
DX: S39.012A Strain of muscle, fascia and tendon of lower back, initial encounter (principal); X58.XXXA Exposure to other specified factors, initial encounter; Y93.9 Activity, unspecified; Y92.9 Unspecified place or not applicable; Y99.9 Unspecified external cause status; Z79.899 Other long term (current) drug therapy
CPT/HCPCS: 96372; 99283; 99284; J1885

== ENCOUNTER → 2022-10-04 08:21 | Outpatient (BNVA) | payer OTHER, SELFPAY | PROVIDERS: PCP Internal Medicine; Visit Provider Nurse Practitioner Family | DX: K21.9 Gastro-esophageal reflux disease without esophagitis (principal); K58.1 Irritable bowel syndrome with constipation | CPT/HCPCS: 99212 ==

== ENCOUNTER 2022-10-06 10:12 | Outpatient (REF) | payer OTHER, SELFPAY ==
--- NOTE | ~2022-10-06 | XR_ITS ---
EXAMINATION: XR LUMBOSACRAL SPINE CLINICAL INFORMATION: Low back pain COMPARISON: Lumbar spine x-rays 04/19/2022 TECHNIQUE: Three views of the lumbosacral spine. FINDINGS: 5 nonrib-bearing lumbar vertebral bodies are visualized. There is mild levoscoliosis of the lumbar spine. Lumbar vertebral body heights are maintained. Disc spaces are relatively well-maintained diffusely. A few tiny osteophytes are scattered throughout the lumbar spine. Mild degenerative changes of the posterior elements of the lower lumbar spine. Partially visualized calcification within the pelvis is nonspecific but most suggestive of a degenerated fibroid. XR/XR lumbar spine 2-3V IMPRESSION: Mild degenerative changes of the lumbar spine without compression deformity.
== END 2022-10-06 10:13 | disposition home or self-care (01) ==
LOC: HO.XRAY 10:12
PROVIDERS: PCP Internal Medicine; Visit Provider Nurse Practitioner Family
DX: M54.50 Low back pain, unspecified (principal)
CPT/HCPCS: 72100

== ENCOUNTER 2022-12-08 09:00 | Outpatient (RCR) | payer OTHER, SELFPAY ==
--- NOTE | 2022-11-15 10:29 | MHC.PT.EP ---
[facility] [place] [facility] [place] [facility] [place] [facility] [address] Aileen Figueroa [address] [phone] F: [phone] F: [phone] F: [phone] F: [phone] Physical Therapy Plan of Care Date of Evaluation: Date of Surgery: Diagnosis: LBP Assessment: 56 YO FEMALE REF TO PT W H/O 2 MONTH EXACERBATION OF LBP - SHE HAS BEEN TO THE ER x 2 FOR HER LBP- SHE HAD PRIOR PT W RELIEF, HOWEVER, Pt STOPPED PERF HER PREVIOUS HEP. Pt HAS A H/O PARKINSON'S DISEASE. SHE HAS LIMITED TRUNK AROM AND ANKLE/HIP FLEXIB ROSEAN[place], DECR LUMBOPELVIC/ PROX LE STRENGTH, (+) TISSUE TENSION IN ROSEANNE THORACOLUMB PS MM, AND PAIN IN CENTRAL L/S REGION. ON XRAY, 10/11/22, Mild degenerative changes of the lumbar spine without compression deformity. FUNCTIONALLY, Pt HAS DECR TC TO STANDING, SITTING, WALKING (ALTERED GAIT DUE TO Lt PLANTAR FASCIITIS), AND BENDING. HER ASSISTS HER W TRANSFERS AND BED MOB. Pt WOULD BENEFIT FROM PT TO ADDRESS THE ABOVE FINDINGS, DEV A HEP, AND PAIN MGMT/ SELF- SX MGMT TECHN. Frequency and Duration: The patient will be seen 2 x WK x 5 WKS Short Term Goals: *Pt INDEP SELF CORRECT POSTURE AND DEMON WFL SQUAT MECH *Pt INDEP W SIT<-> STAND TRANSFERS AND BED MOB *DECREASE LBP TO 2-3/10 *IMPROVE TRUNK AROM AND HS/ ANKLE FLEXIB Prison Goals: *Pt INDEP W HEP AND SELF-SX MGMT TECHN *Pt RESUME REG ADLs AND FITNESS WALKING-> IMPROVED OSWESTRY SCORE (AT EVAL 29/50) *Pt DEMON EFFICIENT GAIT MECH LEVEL AND STAIRS Treatment Plan: Modalities to reduce pain, spasms and effusion. Manual therapy to restore motion and function. Therapeutic exercise to improve strength and flexibility. Neuromuscular re-education for posture and balance. Therapeutic activities to return to functional activities of daily living. Electronically signed by: WILMA MIRANDA,PT Please sign and return to therapist. Thank you for your referral.
--- NOTE | 2022-12-22 09:38 | MHC.PT.DC ---
[facility] [place] Office [place] [facility] [place] Office [address] Aileen Figueroa [address] [phone] F: [phone] F: [phone] F: [phone] F: [phone] Physical Therapy Discharge Report Diagnosis: LBP Date of Surgery: Date of Evaluation: 11/15/22 Date of Discharge: 12/22/22 Treatments to Date: 5 Cancellations to Date: 3 No Shows to Date: 3 Discharge Status: Improved Function Visit Non-compliance Discharge Summary: Pt WAS PROGRESSING IN PT EVIDENT W SUBJECTIVE DECR IN LBP AND IMPROVED ,OBSERVED FUNCT MOB- SHE WAS DISPLAYING COMPENSATORY GAIT DUE TO HER HEEL SPURS. Pt HAS A THOROUGH HEP- SHE HAD DECR ATTENDANCE W SCHED PT APPTS AND IS D/C PER DEPT POLICY Electronically signed by: WILMA MIRANDA,PT Please sign and return to therapist. Thank you for your referral.
== END 2022-12-22 09:39 | disposition home or self-care (01) ==
LOC: HO.PT 09:00
PROVIDERS: PCP Internal Medicine; Visit Provider Nurse Practitioner Family
DX: M54.50 Low back pain, unspecified (principal)
CPT/HCPCS: 97110; 97162; 97530

== ENCOUNTER → 2023-01-02 08:52 | Outpatient (BNVA) | payer OTHER, SELFPAY | PROVIDERS: PCP Internal Medicine; Referring Provider Internal Medicine; Visit Provider Nurse Practitioner Family | DX: K21.9 Gastro-esophageal reflux disease without esophagitis (principal); K58.9 Irritable bowel syndrome, unspecified; E55.9 Vitamin D deficiency, unspecified | CPT/HCPCS: 99212 ==

== ENCOUNTER 2023-07-13 13:57 | Outpatient (REF) | payer OTHER, SELFPAY ==
[2023-07-13 15:44] LABS: Folate 9.1 ng/mL (> or = 4.0); Vitamin B12 406 pg/mL (200-900)
[2023-07-18 10:38] LABS: Vitamin D 25-OH, D2 6 ng/mL; Vitamin D 25-OH, D3 20 ng/mL; Vitamin D 25-OH, Total 26 ng/mL (30-100)
== END 2023-07-13 13:58 | disposition home or self-care (01) ==
LOC: HO.LAB 13:57
PROVIDERS: PCP Internal Medicine; Visit Provider Nurse Practitioner Family
DX: R19.7 Diarrhea, unspecified (principal); E55.9 Vitamin D deficiency, unspecified
CPT/HCPCS: 36415; 82306; 82607; 82746

== ENCOUNTER 2023-07-16 08:52 | Outpatient (AMB) | payer OTHER, SELFPAY ==
--- NOTE | 2023-07-16 08:55 | A.OFFVIS_ITS ---
Intake Vital Signs 07/16/23 08:56 Height 5 ft 3 in Weight 152 lb 8.958 oz BMI 27.0 BP 147/80 H Blood Pressure Location Lt brachial Position Sitting Pulse 63 Pulse Source Pulse Oximeter Intake Visit Reasons: 6 mnth follow up Intake Note: Pt presents to the office today for a 6 month follow up. Pt states she is feeling well. Pt states her acid reflux is doing better. Pt states she does get acid reflux occasionally but it has gotten much better and denies any new GI symptoms at this time. Accompanied by: Spouse Allergies Seasonal Allergies Allergy (Mild, Verified 07/16/23 08:59) runny nose HPI 6 mnth follow up HPI Details LAST VISIT: GERD (gastroesophageal reflux disease) Continue sucralfate as ordered. Continue avoiding dietary triggers and late night snacking. Staying upright for minimal 3 hours after meals discussed with patient. Hypovitaminosis D Continue taking vitamin-D supplement. Will check vitamin-D level today. IBS (irritable bowel syndrome) Continue low FODMAP diet. Patient reports that she moves her bowels better. States that she takes senna every day which helps her with bloating. I will see patient in 6 months, sooner on as needed basis. Patient is agreeable to this plan and verbalizes understanding of instructions. She was given the opportunity to ask questions and all questions answered. Plan Orders Orders Vitamin B12 and Folate Today R19.7 - Diarrhea, unspecified Vitamin D 25-OH (D2 and D3) Today E55.9 - Vitamin D deficiency, unspecified TODAY'S VISIT Patient is here today for follow-up. Patient reports that she has been feeling well. Since she stopped taking all of her medications she has been feeling much better. She only take sucralfate at bedtime as needed. Patient reports to have a normal appetite occasional postprandial abdominal bloating, however if that is this usually happens if she does not have a normal bowel movement. Patient continues to use senna daily to help her move her bowels better. Normal vitamin B12 and folate level, vitamin-D level is pending. Patient is taking her vitamin D supplement daily. Denies any nausea or vomiting. Denies dyspepsia, dysphagia or odynophagia. Denies any melena, hematochezia, unintentional weight loss or ribbon like stools. Patient will be due to go for colonoscopy after August of 2023 [facility] Medical History Right sided sciatica Parkinson disease Plantar fasciitis, right Mixed hyperlipidemia Gastritis Right knee pain Fatigue Abdominal discomfort H. pylori infection Hypertension Tubular adenoma GERD (gastroesophageal reflux disease) Allergic rhinitis Family history of hypertension Nausea Restless leg syndrome Tremors of nervous system Moderate asthma Hypovitaminosis D Anemia Parkinson disease Migraine Asthma Surgical History History of esophagogastroduodenoscopy (EGD) History of colonoscopy History of carpal tunnel release History of surgery Hx of tubal ligation History of breast lump/mass excision Family History Father HTN (hypertension) Asthma Mother HTN (hypertension) Paternal Grandfather Prostate cancer Maternal Grandfather Prostate cancer Family/Other Stomach cancer Maternal Aunt Stomach cancer Social History Household Members: Spouse and Children Housing: House Alcohol intake: never Patient Tobacco Use Status: Never used Tobacco e-Cigarette/Vaping Use: Never Used Second Hand Smoke Exposure: No Advance Directives Date on File: 08/27/14 service: No Current occupational status: unemployed Sexual orientation: Straight/Heterosexual Gender identity: Female Cognitive needs: No Hearing needs: No Vision needs: Yes Review of Systems Const Denies weight gain and Denies weight loss ENT Reports no additional complaints, Denies dysphagia and Denies odynophagia Card Reports no additional complaints Resp Reports no additional complaints GI Denies abdominal pain, Denies belching, Denies melena, Denies bloating, Denies change in bowel habits, Denies dysphagia, Denies excessive flatus, Denies dyspepsia, Reports heartburn (Occasional), Denies diarrhea, Denies loose stools, Denies nausea, Denies odynophagia and Denies vomiting Reports no additional complaints Musc Reports no additional complaints Neuro Reports no additional complaints Psych Reports no additional complaints Endo Reports no additional complaints Physical Exam Vital Signs: Last Vital Signs Pulse 63 07/16/23 08:56 BP 147/80 H 07/16/23 08:56 BMI result Body Mass Index 27.0 Const General: healthy appearing, no acute distress and well developed Nutritional Appearance: well nourished Orientation/consciousness: patient oriented x3 HEENT Head: Yes normal to inspection, Yes normocephalic and Yes atraumatic Face and sinus: Yes normal facial exam Mouth: Normal oral and palatal mucosa present Throat: Yes posterior oropharynx normal, Yes tonsils normal and Yes uvula midline Eyes General: appearance normal, both eyes and all related structures Neck Neck: Yes normal visual inspection, Yes full ROM and Yes trachea midline Thyroid: Thyroid normal Resp Effort & Inspection: normal respiratory effort, able to speak in complete sent ences, no tracheal deviation and symmetric chest movement Auscultation: clear to auscultation bilaterally Cardio Rate: regular rate Heart sounds: S1 normal heart sound present and S2 normal heart sound present GI Inspection: Yes normal to inspection and No distended Palpation (GI): Soft to palpation, not firm, nontender and No hepatosplenomegaly present Auscultation: normal bowel sounds General: Yes no CVA tenderness Back/Spine/Pelvis Back: no CVA tenderness Skin General skin exam: elasticity normal, turgor normal and dry skin Neuro General: patient oriented x3 Psych Appearance: grossly normal Mental Status: mental status grossly normal Affect: normal affect Assessment & Plan Assessment & Plan (1) GERD (gastroesophageal reflux disease): Code(s): K21.9 - Gastro-esophageal reflux disease without esophagitis Qualifiers: Esophagitis presence: esophagitis presence not specified Qualified Code(s): K21.9 - Gastro-esophageal reflux disease without esophagitis (2) Hypovitaminosis D: Code(s): E55.9 - Vitamin D deficiency, unspecified (3) IBS (irritable bowel syndrome): Code(s): K58.9 - Irritable bowel syndrome without diarrhea Qualifiers: Irritable bowel syndrome type: with constipation Qualified Code(s): K58.1 - Irritable bowel syndrome with constipation (4) Constipation: Code(s): K59.00 - Constipation, unspecified Qualifiers: Constipation type: slow transit constipation Qualified Code(s): K59.01 - Slow transit constipation Plan Continued sucralfate as needed at bedtime. Discussed with patient avoiding dietary triggers and late night snacking. Staying upright for minimal 3 hours after meals discussed with patient. Patient can continue taking Senokot daily. She was encouraged to increase fluid intake and activity to promote better bowel motility. Patient overall is feeling better, will return in 2 months so we can discuss going for colonoscopy. Patient is agreeable to plan of care and verbalizes understanding of instructions. She was given the opportunity to ask questions and all questions answered. Patient has been was present and interpreting for us per patient's request Thank you for allowing me to participate in her care Medications: Changed From sennosides (Natural Senna Laxative) 8.6 mg PO BEDTIME PRN 90 tabs 3RF constipation K59.00 - Constipation, unspecified To sennosides (Natural Senna Laxative) 8.6 mg PO BEDTIME 90 tabs 3RF constipation K59.00 - Constipation, unspecified Coding Level of Care Code Est Pt Level 3 (73947) Diagnoses Gastroesophageal reflux disease, unspecified whether esophagitis present K21.9 Esophagitis presence: esophagitis presence not specified Hypovitaminosis D E55.9 Irritable bowel syndrome with constipation K58.1 Irritable bowel syndrome type: with constipation Slow transit constipation K59.01 Constipation type: slow transit constipation Time Spent (min) 25 Comment 15 minutes spent with patient and additional 10 minutes spent reviewing her records
[2023-07-16 08:56] VITALS: BP 147/80; PULSE 63; BMI 27.0
== END 2023-07-16 09:34 | disposition home or self-care (01) ==
PROVIDERS: Visit Provider Nurse Practitioner Family
DX: K21.9 Gastro-esophageal reflux disease without esophagitis (principal); E55.9 Vitamin D deficiency, unspecified; K58.1 Irritable bowel syndrome with constipation; K59.01 Slow transit constipation
CPT/HCPCS: 99213

== ENCOUNTER → 2023-07-16 08:52 | Outpatient (BNVA) | payer OTHER, SELFPAY | PROVIDERS: Visit Provider Nurse Practitioner Family | DX: K21.9 Gastro-esophageal reflux disease without esophagitis (principal); K58.1 Irritable bowel syndrome with constipation; K59.01 Slow transit constipation; E55.9 Vitamin D deficiency, unspecified | CPT/HCPCS: 99212 ==

== ENCOUNTER 2023-08-16 10:03 | Outpatient (AMB) | payer OTHER, SELFPAY ==
[2023-08-16 10:05] VITALS: BP 120/78; BMI 26.0
--- NOTE | 2023-08-16 10:05 | MHC.PC.OV ---
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: No Accompanied by: Spouse Allergies Seasonal Allergies Allergy (Mild, Verified 08/16/23 10:15) runny nose Medication List - Last Reconciled 08/16/23 by Venita Vicente MD acetaminophen (Tylenol Extra Strength) 500 mg PO Q6H PRN albuterol sulfate 2.5 mg (3 mL) inhalation Q6H PRN 30 days cholecalciferol (vitamin D3) 50 mcg PO DAILY clotrimazole-betamethasone 1-0.05 % 1 appl topical BID 30 days fluticasone furoate-vilanterol 100-25 mcg/dose (Breo Ellipta) 1 inh inhalation DAILY fluticasone propionate 50 mcg/actuation 1 spray intranasal DAILY lidocaine 5% 1 patch topical DAILY loratadine 10 mg PO DAILY nebulizers (VixOne Nebulizer-Adult Mask) As directed sennosides (Natural Senna Laxative) 8.6 mg PO BEDTIME sucralfate 10 mL PO BEDTIME Ventolin HFA 90 mcg/actuation (albuterol sulfate) 2 puffs inhalation Q6H PRN 30 days NS Tobacco use date assessed: 10/06/22 Dental Screening Dental Screen Date: 08/16/23 Did you have a dental visit in the last 12 months?: Yes Did you have a dental problem in the last 6 months where you did not have access to dental care?: No Was dental information given to patient?: Patient has dentist HPI HPI Comments History of Present Illness Details This is a 57-year-old female with Parkinson's disease that comes accompanied by for her physical exam. Parkinson's disease has been asymptomatic and this is follow by Neurology which does not have her in any medication. Last mammogram was August 2022. Last Pap smear was 2019. Last colonoscopy was 2020. Last bone density was August 2022 and shows osteopenia. Complains of a head cold with nasal congestion, headaches and bilateral ear pain that started today with temperature of 99 degrees. [facility] Medical History (Updated 08/16/23 @ 10:25 by Venita Vicente MD) Parkinson disease Right sided sciatica Plantar fasciitis, right Mixed hyperlipidemia Gastritis Right knee pain Fatigue Abdominal discomfort H. pylori infection Hypertension Tubular adenoma GERD (gastroesophageal reflux disease) Allergic rhinitis Family history of hypertension Nausea Restless leg syndrome Tremors of nervous system Moderate asthma Hypovitaminosis D Anemia Parkinson disease Migraine Asthma Surgical History History of esophagogastroduodenoscopy (EGD) History of colonoscopy History of carpal tunnel release History of surgery Hx of tubal ligation History of breast lump/mass excision Family History Father HTN (hypertension) Asthma Mother HTN (hypertension) Paternal Grandfather Prostate cancer Maternal Grandfather Prostate cancer Family/Other Stomach cancer Maternal Aunt Stomach cancer Social History Household Members: Spouse and Children Housing: House Alcohol intake: never Comment: DISCHARGED PRIOR TO 07:03AM Patient Tobacco Use Status: Never used Tobacco e-Cigarette/Vaping Use: Never Used Second Hand Smoke Exposure: No Advance Directives Date on File: 08/27/14 service: No Current occupational status: unemployed Sexual orientation: Straight/Heterosexual Gender identity: Female Cognitive needs: No Hearing needs: No Vision needs: Yes Questionnaire Thrive Questionnaire Date Thrive assessed: 10/06/22 FRANCISCO-7 AMB Questionnaire FRANCISCO-7 Date FRANCISCO - 7 assessed: 10/06/22 Source: Developed by Drs. Rob Chau, Shannon Mae, Bereket Fraser and colleagues, with an educational roman from [employer]. Review of Systems Const All systems reviewed & are unremarkable except as noted in HPI and below Eyes Reports no additional complaints, Denies change in vision and Denies other visual disturbances Card Denies chest pain at rest, Denies chest pain with activity, Denies edema, Denies irregular heart rhythm, Denies claudication, Denies dyspnea, Denies dyspnea on exertion, Denies orthopnea, Denies paroxysmal nocturnal dyspnea and Denies slow heart rate Resp Denies cough, Denies dyspnea and Denies dyspnea on exertion GI Denies abdominal pain, Denies change in bowel habits, Denies excessive flatus, Denies nausea and Denies vomiting Denies urinary incontinence, Denies urinary hesitancy and Denies urinary urgency Musc Denies abnormal gait, Denies atrophy, Denies deformity and Denies limited range of motion Skin/Breast Denies bleeding lesions, Denies changing lesions and Denies rash Neuro Denies abnormal gait, Denies behavioral changes, Denies confusion and Denies lack of coordination Psych Denies behavioral changes and Denies confusion Physical exam (Primary Care) Vital Signs: Last Vital Signs BP 120/78 08/16/23 10:05 BMI result Body Mass Index 26.0 Tobacco/Smoking Status: Tobacco use Status Tobacco use date assessed 10/06/22 08/16/23 10:10 Patient Tobacco Use Status Never used Tobacco 08/16/23 10:10 e-Cigarette/Vaping Use Never Used 08/16/23 10:10 Thrive Assessment: Date of Thrive Assessment Date Thrive assessed 10/06/22 08/16/23 10:10 Const General: No confusion Orientation/consciousness: patient oriented x3 and No confusion HENMT Head: Yes normal to inspection, Yes normocephalic and Yes atraumatic Ears: external ears normal Eyes General: appearance normal, both eyes and all related structures Eyelids: Yes eyelids normal Conjunctivae: conjunctivae normal Neck Neck: Yes normal visual inspection and Yes supple Resp Effort & Inspection: normal respiratory effort Auscultation: clear to auscultation bilaterally Cardio Jugular venous distension: no JVD Rate: regular rate Rhythm: regular rhythm Heart sounds: S1 normal heart sound present and S2 normal heart sound present GI Inspection: Yes normal to inspection Palpation (GI): Soft to palpation and nontender Auscultation: normal bowel sounds Skin General skin exam: no rashes or lesions noted Neuro General: patient oriented x3, no focal motor deficits and No confusion Extrem General: Yes full ROM Psych Appearance: grossly normal Office Procedures Flu Questionnaire Does the patient have a severe egg allergy?: No Immunizations flu vacc [id number] 6mos up(PF) 60 mcg(15 mcgx4)/0.5 mL IM syringe Performing Provider: Venita Vicente MD [facility] Documented (not given) by: SUSHILA Russ on 08/16/23 10:26 Reason Not Given: Not Given Assessment and Plan Assessment & Plan (1) Physical exam: Code(s): Z00.00 - Encounter for general adult medical examination without abnormal findings Plan: Repeat in a year. (2) Parkinson disease: Code(s): G20 - Parkinson's disease Plan: Follow-up with neurology. Orders: Orders SARS-CoV2/FLU/RSV Today R09.89 - Other specified symptoms and signs involving the circulatory and respiratory systems Coding Level of Care Code Est Pt Prev Care 40-64y(75820) Diagnoses Physical exam Z00.00 Parkinson disease G20 Time Spent (min) 33
== END 2023-08-16 10:23 | disposition home or self-care (01) ==
PROVIDERS: Visit Provider Internal Medicine
DX: Z00.00 Encounter for general adult medical examination without abnormal findings (principal); G20.A1 Parkinson's disease without dyskinesia, without mention of fluctuations
CPT/HCPCS: 99396

== ENCOUNTER 2023-08-16 10:28 | Outpatient (REF) | payer OTHER, SELFPAY ==
[2023-08-16 11:33] LABS: Influenza A PCR POSITIVE (Negative); Influenza B PCR NEGATIVE (Negative); Resp Syncy Virus RNA Qual PCR NEGATIVE (Negative); SARS COV2 PCR INHOUSE NEGATIVE (Negative)
== END 2023-08-16 10:29 | disposition home or self-care (01) ==
LOC: HO.LAB 10:28
PROVIDERS: PCP Internal Medicine; Visit Provider Internal Medicine
DX: Z11.52 Encounter for screening for COVID-19 (principal); Z20.822 Contact with and (suspected) exposure to COVID-19; R09.89 Other specified symptoms and signs involving the circulatory and respiratory systems
CPT/HCPCS: 0241U

== ENCOUNTER → 2023-09-11 09:41 | Outpatient (BNVA) | payer OTHER, SELFPAY | PROVIDERS: PCP Internal Medicine; Visit Provider Nurse Practitioner Family | DX: K21.9 Gastro-esophageal reflux disease without esophagitis (principal); E55.9 Vitamin D deficiency, unspecified; K58.9 Irritable bowel syndrome, unspecified; K59.01 Slow transit constipation | CPT/HCPCS: 99212 ==

== ENCOUNTER 2023-09-12 09:36 | Outpatient (REF) | payer OTHER, SELFPAY ==
--- NOTE | ~2023-09-12 | MM_ITS ---
EXAMINATION: MM SCREENING DIGITAL BREAST TOMOSYNTHESIS, BILATERAL CLINICAL INFORMATION: Screening. Asymptomatic. COMPARISON: Mammography: This study is compared with prior exams dating back to 2018. TECHNIQUE: Digital breast tomosynthesis is performed in both the craniocaudal and mediolateral oblique views along with computer-aided detection (CAD). Synthesized 2D images are generated from the tomosynthesis. FINDINGS: There are scattered areas of fibroglandular density (ACR BI-RADS breast composition Category b). There are no significant masses, abnormal calcifications, or other abnormalities. There is an unchanged, well-circumscribed, oval, partially and coarsely calcified mass in the lower inner quadrant of the right breast. This is a benign finding. MM/MM tomosynthesis screening BI IMPRESSION: No mammographic evidence of malignancy. ASSESSMENT: BI-RADS BI-RADS 2 - Benign Findings RECOMMENDATION: Routine annual mammography screening. 1 year F/U This examination should not preclude the clinical evaluation of a suspicious palpable abnormality. This patient's information was entered into a reminder system with a target due date for their next mammogram.
== END 2023-09-12 09:37 | disposition home or self-care (01) ==
LOC: HO.MAMMO 09:36
PROVIDERS: PCP Internal Medicine; Visit Provider Internal Medicine
DX: Z12.31 Encounter for screening mammogram for malignant neoplasm of breast (principal)
CPT/HCPCS: 77063; 77067

== ENCOUNTER → 2023-09-12 10:00 | Outpatient (BNV) | payer OTHER, SELFPAY | PROVIDERS: PCP Internal Medicine; Visit Provider Radiology Diagnostic Radiology | DX: Z12.31 Encounter for screening mammogram for malignant neoplasm of breast (principal) | CPT/HCPCS: 77063; 77067 ==

== ENCOUNTER 2024-01-15 13:06 | Outpatient (AMB) | payer OTHER, SELFPAY ==
[2024-01-15 13:29] VITALS: BP 122/70; BMI 27.1
--- NOTE | 2024-01-15 13:29 | A.OFFPC_ITS ---
Vital Signs 01/15/24 13:29 Height 5 ft 3 in Weight 153 lb BMI 27.1 BP 122/70 Blood Pressure Location Lt brachial Position Sitting Intake Visit Reasons: asthma Intake Note: Patient here for a follow up Asthma Building Performance Specialist Required: No Accompanied by: Spouse, Child Allergies Seasonal Allergies Allergy (Mild, Verified 01/15/24 13:51) runny nose Medication List - Last Reconciled 01/15/24 by Venita Vicente MD acetaminophen (Tylenol Extra Strength) 500 mg PO Q6H PRN albuterol sulfate 2.5 mg (3 mL) inhalation Q6H PRN 30 days bisacodyl (Dulcolax (bisacodyl)) 20 mg (4 x 5 mg) PO ONCE 1 day cholecalciferol (vitamin D3) 50 mcg PO DAILY clotrimazole-betamethasone 1-0.05 % 1 appl topical BID 30 days fluticasone propionate 50 mcg/actuation 1 spray intranasal DAILY loratadine 10 mg PO DAILY nebulizers (VixOne Nebulizer-Adult Mask) As directed polyethylene glycol 3350 (Miralax) 238 grams PO ONCE sennosides (Natural Senna Laxative) 8.6 mg PO BEDTIME sucralfate 10 mL PO BEDTIME Ventolin HFA 90 mcg/actuation (albuterol sulfate) 2 puffs inhalation Q6H PRN 30 days NS Tobacco use date assessed: 01/15/24 Dental Screening Dental Screen Date: 01/15/24 Did you have a dental visit in the last 12 months?: Yes Did you have a dental problem in the last 6 months where you did not have access to dental care?: No Was dental information given to patient?: Patient has dentist HPI HPI Comments History of Present Illness Details This is a 58-year-old female with chronic idiopathic constipation, moderate asthma, allergic rhinitis and low vitamin-D that comes today for follow-up on her conditions. She is accompanied by and daughter. Constipation stable with medications as needed. She use rescue inhaler about once a month. On antihistamines for her allergic rhinitis which is acting up. Vitamin-D supplements for her low vitamin-D. She denies any chest pain or shortness of breath. No acute complaint. [facility] Medical History (Updated 01/15/24 @ 14:04 by Venita Vicente MD) Parkinson disease Right sided sciatica Plantar fasciitis, right Mixed hyperlipidemia Gastritis Right knee pain Fatigue Abdominal discomfort H. pylori infection Hypertension Tubular adenoma GERD (gastroesophageal reflux disease) Allergic rhinitis Family history of hypertension Nausea Restless leg syndrome Tremors of nervous system Moderate asthma Hypovitaminosis D Anemia Parkinson disease Migraine Asthma Surgical History History of esophagogastroduodenoscopy (EGD) History of colonoscopy History of carpal tunnel release History of surgery Hx of tubal ligation History of breast lump/mass excision Family History Father HTN (hypertension) Asthma Mother HTN (hypertension) Paternal Grandfather Prostate cancer Maternal Grandfather Prostate cancer Family/Other Stomach cancer Maternal Aunt Stomach cancer Social History Household Members: Spouse and Children Housing: House Alcohol intake: never Comment: DISCHARGED PRIOR TO 07:03AM Patient Tobacco Use Status: Never used Tobacco e-Cigarette/Vaping Use: Never Used Second Hand Smoke Exposure: No Advance Directives Date on File: 08/27/14 service: No Current occupational status: unemployed Sexual orientation: Straight/Heterosexual Gender identity: Female Cognitive needs: No Hearing needs: No Vision needs: Yes Questionnaire PHQ-9 Over the last 2 weeks, how often have you been bothered by any of the following problems? 1. Little interest or pleasure in doing things: not at all 2. Feeling down, depressed, or hopeless: not at all 3. Trouble falling or staying asleep, or sleeping too much: not at all 4. Feeling tired or having little energy: not at all 5. Poor appetite or overeating: not at all 6. Feeling bad about yourself - or that you are a failure or have let yourself or your family down: not at all 7. Trouble concentrating on things, such as reading the newspaper or watching television: not at all 8. Moving or speaking so slowly that other people could have noticed. Or the opposite - being so fidgety or restless that you have been moving around a lot more than usual: not at all 9. Thoughts that you would be better off or of hurting yourself in some way: not at all Total score: 0 Depression Screening Interpretation: Negative Depression Screening Done: Yes 70370 - PHQ-9 Billing: Yes Source: Developed by Shannon Maxwell Kurt Kroenke and colleagues, with an educational roman from [employer]. Thrive Questionnaire Date Thrive assessed: 01/15/24 I am a: Patient What is your living situation today?: I have a steady place to live Within the past 12 months, did the food you bought not last and you didn't have the money to get more?: Never true Within the past 12 months, did you worry whether your food would run out before you got money to buy more?: Never true Do you have trouble paying for medicines?: No Do you have trouble getting transportation to medical appointments?: No Do you have trouble paying your heating and electricity bill?: No Do you have trouble taking care of your child, family member or friend?: No Do you have trouble with day-to-day activities such as bathing, preparing meals, shopping, managing finances, etc.?: No Are you currently unemployed and looking for a job?: No Are you interested in more education?: No Please select the resources that you would like help with: None Currently or been in a relationship where the following occur: no concerns reported THRIVE Score: 0 AUDIT C Alcohol Use Questionnaire (AUDIT-C) 1. How often do you have a drink containing alcohol?: Never Total Score: 0 FRANCISCO-7 AMB Questionnaire FRANCISCO-7 Date FRANCISCO - 7 assessed: 01/15/24 Feeling nervous, anxious, or on edge: 0 = Not at all Not being able to stop or control worryin = Not at all Worrying too much about different things: 0 = Not at all Trouble relaxin = Not at all Being so restless that it is hard to sit still: 0 = Not at all Becoming easily annoyed or irritable: 0 = Not at all Feeling afraid as if something awful might happen: 0 = Not at all Total FRANCISCO-7 score (0-4 normal; 5-9 mild; 10-14 moderate; 15-21 severe): 0 Source: Developed by Shannon Maxwell Kurt Kroenke and colleagues, with an educational roman from [employer]. FRANCISCO-7 Assessment Billing FRANCISCO-7 Assessment Tool: FRANCISCO-7 Assessment 84071 Review of Systems Const All systems reviewed & are unremarkable except as noted in HPI and below Eyes Reports no additional complaints, Denies change in vision and Denies other visual disturbances Card Denies chest pain at rest, Denies chest pain with activity, Denies edema, Denies irregular heart rhythm, Denies claudication, Denies dyspnea, Denies dyspnea on exertion, Denies orthopnea, Denies paroxysmal nocturnal dyspnea and Denies slow heart rate Resp Denies cough, Denies dyspnea and Denies dyspnea on exertion Physical exam (Primary Care) Vital Signs: Last Vital Signs BP 122/70 01/15/24 13:29 BMI result Body Mass Index 27.1 Tobacco/Smoking Status: Tobacco use Status Tobacco use date assessed 01/15/24 01/15/24 13:36 Patient Tobacco Use Status Never used Tobacco 01/15/24 13:36 e-Cigarette/Vaping Use Never Used 01/15/24 13:36 PHQ-9: PHQ-9 Score PHQ-9: Total score 0 01/15/24 13:54 Depression Screening Interpretation: Negative Thrive Assessment: Date of Thrive Assessment Date Thrive assessed 01/15/24 01/15/24 13:36 Currently or been in a relationship where the following occur: no concerns reported Resp Effort & Inspection: normal respiratory effort Auscultation: clear to auscultation bilaterally Cardio Jugular venous distension: no JVD Rate: regular rate Rhythm: regular rhythm Heart sounds: S1 normal heart sound present and S2 normal heart sound present Extrem General: Yes full ROM Assessment and Plan Assessment & Plan (1) Chronic idiopathic constipation: Code(s): K59.04 - Chronic idiopathic constipation Plan: Continue senna as needed. (2) Moderate asthma: Code(s): J45.909 - Unspecified asthma, uncomplicated Plan: Use rescue inhaler as needed. (3) Allergic rhinitis: Code(s): J30.9 - Allergic rhinitis, unspecified Plan: Continue antihistamines as needed. (4) Hypovitaminosis D: Code(s): E55.9 - Vitamin D deficiency, unspecified Plan: Continue vitamin-D supplements. Coding Level of Care Code Est Pt Level 4 (93398) Diagnoses Chronic idiopathic constipation K59.04 Moderate asthma J45.909 Allergic rhinitis J30.9 Hypovitaminosis D E55.9 Additional Codes FRANCISCO-7 Assessment Billing - FRANCISCO-7 Assessment Tool: FRANCISCO-7 Assessment 79894 ([id number]) Time Spent (min) 24
== END 2024-01-15 14:05 | disposition home or self-care (01) ==
PROVIDERS: PCP Internal Medicine; Visit Provider Internal Medicine
DX: K59.04 Chronic idiopathic constipation (principal); J45.909 Unspecified asthma, uncomplicated; J30.9 Allergic rhinitis, unspecified; E55.9 Vitamin D deficiency, unspecified
CPT/HCPCS: 99214

== ENCOUNTER 2024-02-01 08:13 | Day surgery (SDC) | payer OTHER, SELFPAY ==
[2024-02-01 09:53] VITALS: BP 126/87; PULSE 64; RESP 18; TEMP 36.7; O2SAT 98; BMI 26.7
--- NOTE | 2024-02-01 10:30 | HO.ANESPROP2 ---
[facility] Active Problems Active Problems: All Active Problems Skin lesion (Acute) Chronic idiopathic constipation (Acute) Right sided sciatica (Acute) Hearing loss (Acute) Unspecified menopausal and perimenopausal disorder (Acute) Physical exam (Acute) Left leg pain (Acute) Lumbar pain (Acute) Plantar fasciitis, right (Acute) Mixed hyperlipidemia (Acute) Gastritis (Acute) Right knee pain (Acute) Fatigue (Acute) Abdominal discomfort (Acute) Hypertension (Acute) Tubular adenoma (Acute) GERD (gastroesophageal reflux disease) (Acute) Allergic rhinitis (Acute) Family history of hypertension (Acute) Nausea (Acute) Restless leg syndrome (Acute) Tremors of nervous system (Acute) Moderate asthma (Acute) Hypovitaminosis D (Acute) Past Medical History Medical History Parkinson disease Right sided sciatica Plantar fasciitis, right Mixed hyperlipidemia Gastritis Right knee pain Fatigue Abdominal discomfort H. pylori infection Hypertension Tubular adenoma GERD (gastroesophageal reflux disease) Allergic rhinitis Family history of hypertension Nausea Restless leg syndrome Tremors of nervous system Moderate asthma Hypovitaminosis D Anemia Parkinson disease Migraine Asthma Family History Family History Father HTN (hypertension) Asthma Mother HTN (hypertension) Paternal Grandfather Prostate cancer Maternal Grandfather Prostate cancer Family/Other Stomach cancer Maternal Aunt Stomach cancer Surgical History Surgical History History of esophagogastroduodenoscopy (EGD) History of colonoscopy History of carpal tunnel release History of surgery Hx of tubal ligation History of breast lump/mass excision History of Problems with Anesthesia: No Social History Social History Household Members: Spouse and Children Housing: House Alcohol intake: never Comment: DISCHARGED PRIOR TO 07:03AM Patient Tobacco Use Status: Never used Tobacco e-Cigarette/Vaping Use: Never Used Second Hand Smoke Exposure: No Are you DNR?: No Advance Directives: No Advance Directives Information Provided: Yes Advance Directives Date on File: 08/27/14 Nutrition Risks: No Nutritional Risk service: No Current occupational status: unemployed Sexual orientation: Straight/Heterosexual Gender identity: Female Cognitive needs: No Hearing needs: No Vision needs: Yes Meds Allergies Allergy/AdvReac Type Severity Reaction Status Date / Time Seasonal Allergies Allergy Mild runny nose Verified 02/01/24 09:34 Exam Height,Weight and Vital Signs: Height 5 ft 3 in Weight 68.492 kg Last Vital Signs Temp 98.1 F 02/01/24 09:53 Pulse 64 02/01/24 09:53 Resp 18 02/01/24 09:53 BP 126/87 02/01/24 09:53 Pulse Ox 98 02/01/24 09:53 O2 Del Method Room Air 02/01/24 09:53 Airway Mallampati Class: II TM Dist: >3cm Neck ROM: Full Loose/Missing/Broken Teeth: No Heart: RRR Lungs: CTA Assessment and Plan Assessment Anesthesia Assessment: Anesthesia Plan Discussed and Chart Reviewed Final Anesthetic Review History of Problems with Anesthesia: No NPO: Yes ASA Class: III Final Preanesthetic Review: Meds/Allgs Chart Reviewed, Consent Obtained/Reviewed and Anes Risks/Benef Reviewed Patient Risk: Intermediate Procedure Risk: Low Anesthetic Plan Anesthetic Plan: MAC: Disposition: Standard PACU
[2024-02-01] MEDS: Lactated Ringers 1,000 ML 80 ML IVCONT (11:22)
--- NOTE | 2024-02-01 11:28 | MHC.SHP ---
Pre-Procedural Eval Section A - 24 Hr Update-Section A only Date of Service: 02/01/24 The patient is an INPATIENT: No The patient has been examined within 24 hours of the surgical procedure. The History & Physical has been completed within 30 days and I have reviewed it.: No Section B - Complete if H&P > 30 days Chief Complaint: Surveillance for colon polyps Relevant Family History (Specify if Yes): Yes Relevant Social History: None Present Medications: see Short Stay Collaborative assessment Medical History: Significant History (Parkinson disease Right sided sciatica Plantar fasciitis, right Mixed hyperlipidemia Gastritis Right knee pain Fatigue Abdominal discomfort H. pylori infection Hypertension Tubular adenoma GERD (gastroesophageal reflux disease) Allergic rhinitis Family history of hypertension Nausea Restless leg syn) History of Previous Operations: Relevant previous surgery/procedure and date(s) (History of esophagogastroduodenoscopy (EGD) History of colonoscopy History of carpal tunnel release History of surgery Hx of tubal ligation History of breast lump/mass excision) Allergies: Allergies Allergy/AdvReac Type Severity Reaction Status Date / Time Seasonal Allergies Allergy Mild runny nose Verified 02/01/24 09:34 Review of Systems Sugical H&P ROS: Negative: Constitution and Cardiovascular and Yes, Specify: Respiratory (asthma) and Gastrointestinal (abdominal pain) Exam Surgical H&P Exam: Normal: Heart, Normal: Lungs, Normal: Extremities and Normal: Abdomen Plan Diagnosis/Plan: Unchanged I have reviewed the history and physical and performed a pertinent physical examination on my patient. No changes have occurred unless specified. Time Spent With Patient Time: Total time managing care of this patient today ____ minutes.
[2024-02-01 12:08] VITALS: BP 97/74; PULSE 75; RESP 18; TEMP 36.2; O2SAT 99
--- NOTE | 2024-02-01 12:11 | W.PM.OPN ---
Operative Note Operative Note Date of Service: 02/01/24 Narrative: COLONOSCOPY TILL CECUM WITH SNARE POLYPECTOMY Pre-op diagnosis: Surveillance for colon polyps. Post-op diagnosis:? Colon polyps, Diverticulosis, Endoscopist:? Georgette Posey MD Anesthesia:?MAC Consent: Indications for the procedure and potential complications of bleeding, perforation, reaction to medications and missed diagnosis were discussed with the patient and informed consent was obtained. Instrument: Olympus PCF H 190 L variable stiffness pediatric colonoscope Monitoring: Vital signs and clinical assessment, intermittent blood pressure monitoring, continuous EKG monitoring, Pulse oximetry and Carbon Dioxide monitoring were done throughout the procedure. Please see anesthesia flowsheet. Colon withdrawl time was 15 minutes. Procedure: The patient was placed in the left lateral decubitis position and pre-procedure medications were administered. After a digital rectal examination of the ano-rectum, the video colonoscope was inserted into the rectum and advanced through the colon to the cecum. The colonoscope was slowly withdrawn in a retrograde panoramic fashion and the colon mucosa was carefully examined including a retroflexed view of the rectum. Findings and interventions are described below. Procedure Difficulty: without difficulty Findings: Terminal Ileum: Not evaluated Cecum: Normal Ascending Colon: A 7-8 mm sessile polyp in the distal AC - removed with a cold snare. Polyp was not retrieved Transverse Colon: Normal Descending Colon: Normal Sigmoid Colon: A 15 to 18 mm sessile polyp - removed with a hot snare. Moderate diverticulosis Rectum: Normal Ano-rectum: Normal Colon preparation: Excellent after some irrigation. [place] Bowel Preparation Scale Right colon; 3 Transverse colon: 3 Left colon; 3 (0 = Unprepared colon segment with mucosa not seen due to solid stool that cannot be cleared. 1 = Portion of mucosa of the colon segment seen, but other areas of the colon segment not well seen due to staining, residual stool and/or opaque liquid. 2 = Minor amount of residual staining, small fragments of stool and/or opaque liquid, but mucosa of colon segment seen well. 3 = Entire mucosa of colon segment seen well with no residual staining, small fragments of stool or opaque liquid) Impression and Post Procedure Diagnosis: Colonoscopy Findings: One medium sized and one small polyps were removed Moderate diverticulosis seen in the sigmoid colon Plan: Pt has a FU appointment on 02/15/24 with Esther Alexandre NP Repeat Colonoscopy in 3-5 years if polyps are adenomatous and due to a history of adenomatous colon polyps. Above findings were reviewed with the patient and relevant handouts were given and the discharge area.
[2024-02-01 12:23] VITALS: BP 132/60; PULSE 69; RESP 16; TEMP 36.2; O2SAT 98
== END 2024-02-01 13:25 | disposition home or self-care (01) ==
PROVIDERS: PCP Internal Medicine; Visit Provider Internal Medicine Gastroenterology
PROC: 0DJD8ZZ Inspection of Lower Intestinal Tract, Via Natural or Artificial Opening Endoscopic (ICD-10-PCS; CPT 45378; principal; 2024-02-01 11:10)
DX: Z12.11 Encounter for screening for malignant neoplasm of colon (principal); D12.5 Benign neoplasm of sigmoid colon; K57.30 Diverticulosis of large intestine without perforation or abscess without bleeding; G20.A1 Parkinson's disease without dyskinesia, without mention of fluctuations; I10 Essential (primary) hypertension
CPT/HCPCS: 45385; 88305

== ENCOUNTER → 2024-02-01 08:13 | Outpatient (BNV) | payer OTHER, SELFPAY | PROVIDERS: PCP Internal Medicine; Visit Provider Internal Medicine Gastroenterology | DX: Z12.11 Encounter for screening for malignant neoplasm of colon (principal); Z86.010 Personal history of colon polyps; K63.5 Polyp of colon; K57.30 Diverticulosis of large intestine without perforation or abscess without bleeding | CPT/HCPCS: 45385 ==

== ENCOUNTER 2024-02-15 10:00 | Outpatient (AMB) | payer OTHER, SELFPAY ==
--- NOTE | 2024-02-15 10:02 | A.OFFVIS_ITS ---
Vital Signs 02/15/24 10:07 Height 5 ft 3 in Weight 153 lb 7.068 oz BMI 27.2 BP 144/78 H Blood Pressure Location Lt brachial Position Sitting Pulse 66 Pulse Source Pulse Oximeter Pulse Oximetry (%) 96 Oxygen Delivery Method Room Air Intake Visit Reasons: S/P [place] screening: Dr. Posey Intake Note: Shannon presents in office today for a scheduled post colo FUV CC; Pt denies any complications or new concerns post op. Pt is here just for the interpretation of the procedure results. 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 Posey: Details: LAST VISIT GERD (gastroesophageal reflux disease) Hypovitaminosis D IBS (irritable bowel syndrome) Constipation Plan Patient will continue taking senna on as needed basis to make sure that she moves her bowels daily. Patient reports that her symptoms of acid reflux are completely suppressed, currently is not taking anything. Continue avoiding dietary triggers. What to expect before during and after procedure discussed with patient. Clear liquid diet and good bowel prep day before procedure discussed with patient. I will see her after the procedure, sooner on as needed basis. Patient is agreeable to this plan and verbalizes understanding of instructions. She was given the opportunity to ask questions and all questions answered. ? Thank you for allowing me to participate in her care Medications New bisacodyl (Dulcolax (bisacodyl)) take 4 tabs at noon the day before your colonoscopy 20 mg (4 x 5 mg) PO ONCE 1 day 4 tabs 0RF Z12.11 polyethylene glycol 3350 (Miralax) As directed by gastroenterology department at [facility] 238 grams PO ONCE 238 grams 0RF Z12.11 COLONOSCOPY Findings: Terminal Ileum: Not evaluated Cecum: Normal Ascending Colon: A 7-8 mm sessile polyp in the distal AC - removed with a cold snare. Polyp was not retrieved Transverse Colon: Normal Descending Colon: Normal Sigmoid Colon: A 15 to 18 mm sessile polyp - removed with a hot snare. Moderate diverticulosis Rectum: Normal Ano-rectum: Normal Colon preparation: Excellent after some irrigation. Wilder Bowel Preparation Scale Right colon; 3 Transverse colon: 3 Left colon; 3 (0 = Unprepared colon segment with mucosa not seen due to solid stool that ca nnot be cleared. 1 = Portion of mucosa of the colon segment seen, but other areas of the colon segment not well seen due to staining, residual stool and/or opaque liquid. 2 = Minor amount of residual staining, small fragments of stool and/or opaque liquid, but mucosa of colon segment seen well. 3 = Entire mucosa of colon segment seen well with no residual staining, small fragments of stool or opaque liquid) Impression and Post Procedure Diagnosis: Colonoscopy Findings: One medium sized and one small polyps were removed Moderate diverticulosis seen in the sigmoid colon Plan: Repeat Colonoscopy in 3-5 years if polyps are adenomatous and due to a history of adenomatous colon polyps. PATHOLOGY RESULTS Diagnosis Colon, sigmoid, polyp: Tubular adenoma; negative for high-grade dysplasia and carcinoma TODAY'S VISIT Patient is here today for follow-up and to discuss colonoscopy results. Patient is accompanied by her who is translating for us per patient's request. Patient denies any ill effects from the prep, anesthesia or procedure itself. Patient reports that she has been feeling well. Patient denies melena, hematochezia, unintentional weight loss or ribbon like stools. Patient denies any dyspepsia, dysphagia or odynophagia. Patient no longer needs to use PPI. Uses Senokot 1 tablet in the evening and occasionally uses MiraLax to help her move her bowels. Patient otherwise reports to be feeling well. [facility] Medical History (Updated 02/15/24 @ 10:45 by Mesha Alexander [facility]) Tubular adenoma of colon Parkinson disease Right sided sciatica Plantar fasciitis, right Mixed hyperlipidemia Gastritis Right knee pain Fatigue Abdominal discomfort H. pylori infection Hypertension GERD (gastroesophageal reflux disease) Allergic rhinitis Family history of hypertension Nausea Restless leg syndrome Tremors of nervous system Moderate asthma Hypovitaminosis D Anemia Parkinson disease Migraine Asthma Surgical History History of esophagogastroduodenoscopy (EGD) History of colonoscopy History of carpal tunnel release History of surgery Hx of tubal ligation History of breast lump/mass excision Family History Father HTN (hypertension) Asthma Mother HTN (hypertension) Paternal Grandfather Prostate cancer Maternal Grandfather Prostate cancer Family/Other Stomach cancer Maternal Aunt Stomach cancer Social History Household Members: Spouse and Children Housing: House Alcohol intake: never Comment: DISCHARGED PRIOR TO 07:03AM Patient Tobacco Use Status: Never used Tobacco e-Cigarette/Vaping Use: Never Used Second Hand Smoke Exposure: No Advance Directives Date on File: 08/27/14 service: No Current occupational status: unemployed Sexual orientation: Straight/Heterosexual Gender identity: Female Cognitive needs: No Hearing needs: No Vision needs: Yes Review of Systems Const Denies weight gain and Denies weight loss ENT Reports no additional complaints, Denies dysphagia and Denies odynophagia Card Reports no additional complaints Resp Reports no additional complaints GI Denies abdominal pain, Denies belching, Denies melena, Denies bloating, Denies change in bowel habits, Denies dysphagia, Denies excessive flatus, Denies dyspepsia, Denies heartburn, Denies diarrhea, Denies loose stools, Denies na usea, Denies odynophagia and Denies vomiting Reports no additional complaints Musc Reports no additional complaints Neuro Reports no additional complaints Psych Reports no additional complaints Endo Reports no additional complaints Physical Exam Vital Signs: Last Vital Signs Pulse 66 02/15/24 10:07 BP 144/78 H 02/15/24 10:07 Pulse Ox 96 02/15/24 10:07 Oxygen Delivery Method Room Air 02/15/24 10:07 BMI result Body Mass Index 27.2 Const General: healthy appearing, no acute distress and well developed Nutritional Appearance: well nourished Orientation/consciousness: patient oriented x3 Resp Effort & Inspection: normal respiratory effort, able to speak in complete sentences, no tracheal deviation and symmetric chest movement Auscultation: clear to auscultation bilaterally Cardio Rate: regular rate GI Inspection: Yes normal to inspection and No distended Palpation (GI): Soft to palpation, not firm, nontender and No hepatosplenomegaly present Auscultation: normal bowel sounds General: Yes no CVA tenderness Back/Spine/Pelvis Back: no CVA tenderness Skin General skin exam: elasticity normal, turgor normal and dry skin Neuro General: patient oriented x3 Psych Appearance: grossly normal Mental Status: mental status grossly normal Assessment & Plan Assessment & Plan (1) Chronic idiopathic constipation: Code(s): K59.04 - Chronic idiopathic constipation Category: Medical (2) GERD (gastroesophageal reflux disease): Code(s): K21.9 - Gastro-esophageal reflux disease without esophagitis Category: Medical Qualifiers: Esophagitis presence: esophagitis presence not specified Qualified Code(s): K21.9 - Gastro-esophageal reflux disease without esophagitis (3) IBS (irritable bowel syndrome): Code(s): K58.9 - Irritable bowel syndrome without diarrhea Qualifiers: Irritable bowel syndrome type: without diarrhea Qualified Code(s): K58.9 - Irritable bowel syndrome without diarrhea (4) Tubular adenoma of colon: Code(s): D12.6 - Benign neoplasm of colon, unspecified Category: Medical Plan Colonoscopy will be repeated in 10 years, one tubular adenoma found in sigmoid colon without high-grade dysplasia or carcinoma. Continue senna. Continue high-fiber diet. Diverticulosis found. Increase fluid intake and activity to promote better bowel motility. Continue avoiding dietary triggers in late night snacking. Staying upright for minimal 3 hours after meals discussed with patient. Patient will return in 6 months, sooner on as needed basis. She is agreeable to this plan and verbalizes understanding of instructions. She was given the opportunity to ask questions and all questions answered. Thank you for allowing me to participate in her care Medications: Refilled sennosides (Natural Senna Laxative) 8.6 mg PO BEDTIME 90 tabs 3RF constipation K59.00 - Constipation, unspecified Coding Level of Care Code Est Pt Level 3 (49838) Diagnoses Chronic idiopathic constipation K59.04 Gastroesophageal reflux disease, unspecified whether esophagitis present K21.9 Esophagitis presence: esophagitis presence not specified Irritable bowel syndrome without diarrhea K58.9 Irritable bowel syndrome type: without diarrhea Tubular adenoma of colon D12.6 Time Spent (min) 30 Comment 20 minutes spent with patient and additional 10 minutes spent reviewing her records
[2024-02-15 10:07] VITALS: BP 144/78; PULSE 66; O2SAT 96; BMI 27.2
== END 2024-02-15 10:33 | disposition home or self-care (01) ==
PROVIDERS: PCP Internal Medicine; Visit Provider Nurse Practitioner Family
DX: K59.04 Chronic idiopathic constipation (principal); K21.9 Gastro-esophageal reflux disease without esophagitis; K58.9 Irritable bowel syndrome, unspecified; D12.6 Benign neoplasm of colon, unspecified
CPT/HCPCS: 99213

== ENCOUNTER → 2024-02-15 10:00 | Outpatient (BNVA) | payer OTHER, SELFPAY | PROVIDERS: PCP Internal Medicine; Visit Provider Nurse Practitioner Family | DX: K21.9 Gastro-esophageal reflux disease without esophagitis (principal); E55.9 Vitamin D deficiency, unspecified; K58.1 Irritable bowel syndrome with constipation; K59.04 Chronic idiopathic constipation; D12.6 Benign neoplasm of colon, unspecified; Z71.2 Person consulting for explanation of examination or test findings | CPT/HCPCS: 99212 ==

== ENCOUNTER 2024-08-15 09:25 | Outpatient (AMB) | payer OTHER, SELFPAY ==
--- NOTE | 2024-08-15 09:38 | A.OFFVIS_ITS ---
Vital Signs 08/15/24 09:40 Height 5 ft 3 in Weight 159 lb 2.78 oz BMI 28.2 BP 134/74 Blood Pressure Location Rt brachial Position Sitting Pulse 64 Pulse Source Pulse Oximeter Pulse Oximetry (%) 97 Oxygen Delivery Method Room Air Intake Visit Reasons: 6 Month follow up Intake Note: ESTABLISHED PATIENT Shannon presents in office today for a scheduled 6 mos FUV. Meds and Allergies reviewed? Y No recent or relevant surgeries? N Any significant concerns or new changes? Occasional epigastric pain. Pharmacy verified? [facility]. 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 Continue senna. Continue high- fiber diet. Diverticulosis found. Increase fluid intake and activity to promote better bowel motility. Continue avoiding dietary triggers in late night snacking. Staying upright for minimal 3 hours after meals discussed with patient. Patient will return in 6 months, sooner on as needed basis. She is agreeable to this plan and verbalizes understanding of instructions. She was given the opportunity to ask questions and all questions answered. ? Thank you for allowing me to participate in her care Medications Refilled sennosides (Natural Senna Laxative) 8.6 mg PO BEDTIME 90 tabs 3RF constipation K59.00 TODAY'S VISIT: Patient is here today for follow-up. Patient is accompanied by her and her daughter. Patient reports that since last time I have seen her she has been doing well. Patient states that she is not taking any medications. No longer taking her Parkinson's medication. Not sure if the PCP is aware of this. Patient states that she sometimes will take senna if she does not have a bowel movement. Patient reports that occasionally when she has acid reflux she will take Tums. Patient denies any melena, hematochezia, unintentional weight loss or ribbon like stools. Patient denies any dyspepsia, dysphagia or odynophagia. Denies any GI symptoms today. Last colonoscopy in January of 2024 and tubular adenoma found to recommendation was made for colonoscopy to be repeated in 3 years, sooner if clinically necessary. [facility] Medical History Tubular adenoma of colon Parkinson disease Right sided sciatica Plantar fasciitis, right Mixed hyperlipidemia Gastritis Right knee pain Fatigue Abdominal discomfort H. pylori infection Hypertension GERD (gastroesophageal reflux disease) Allergic rhinitis Family history of hypertension Nausea Restless leg syndrome Tremors of nervous system Moderate asthma Hypovitaminosis D Anemia Parkinson disease Migraine Asthma Surgical History History of esophagogastroduodenoscopy (EGD) History of colonoscopy History of carpal tunnel release History of surgery Hx of tubal ligation History of breast lump/mass excision Family History Father HTN (hypertension) Asthma Mother HTN (hypertension) Paternal Grandfather Prostate cancer Maternal Grandfather Prostate cancer Family/Other Stomach cancer Maternal Aunt Stomach cancer Social History Household Members: Spouse and Children Housing: House Alcohol intake: never Comment: DISCHARGED PRIOR TO 07:03AM Patient Tobacco Use Status: Never used Tobacco e-Cigarette/Vaping Use: Never Used Second Hand Smoke Exposure: No Advance Directives Date on File: 08/27/14 service: No Current occupational status: unemployed Sexual orientation: Straight/Heterosexual Gender identity: Female Cognitive needs: No Hearing needs: No Vision needs: Yes Review of Systems Const Denies weight gain and Denies weight loss ENT Reports no additional complaints, Denies dysphagia and Denies odynophagia Card Reports no additional complaints Resp Reports no additional complaints GI Denies abdominal pain, Denies belching, Denies melena, Denies bloating, Denies change in bowel habits, Denies dysphagia, Denies excessive flatus, Denies dyspepsia, Reports heartburn (Occasional), Denies diarrhea, Denies loose stools, Denies nausea, Denies odynophagia and Denies vomiting Reports no additional complaints Musc Reports no additional complaints Neuro Reports no additional complaints Psych Reports no additional complaints Endo Reports no additional complaints Physical Exam Vital Signs: Last Vital Signs Pulse 64 08/15/24 09:40 BP 134/74 08/15/24 09:40 Pulse Ox 97 08/15/24 09:40 Oxygen Delivery Method Room Air 08/15/24 09:40 BMI result Body Mass Index 28.2 Const General: healthy appearing, no acute distress and well developed Nutritional Appearance: well nourished Orientation/consciousness: patient oriented x3 Resp Effort & Inspection: normal respiratory effort, able to speak in complete sentences, no tracheal deviation and symmetric chest movement Auscultation: clear to auscultation bilaterally Cardio Rate: regular rate GI Inspection: Yes normal to inspection and No distended Palpation (GI): Soft to palpation, not firm, nontender and No hepatosplenomegaly present Auscultation: normal bowel sounds General: Yes no CVA tenderness Back/Spine/Pelvis Back: no CVA tenderness Skin General skin exam: elasticity normal, turgor normal and dry skin Neuro General: patient oriented x3 Psych Appearance: grossly normal Mental Status: mental status grossly normal Assessment & Plan Assessment & Plan (1) Chronic idiopathic constipation: Code(s): K59.04 - Chronic idiopathic constipation Category: Medical (2) GERD (gastroesophageal reflux disease): Code(s): K21.9 - Gastro-esophageal reflux disease without esophagitis Category: Medical Qualifiers: Esophagitis presence: esophagitis presence not specified Qualified Code(s): K21.9 - Gastro-esophageal reflux disease without esophagitis (3) Tubular adenoma of colon: Code(s): D12.6 - Benign neoplasm of colon, unspecified Category: Medical (4) IBS (irritable bowel syndrome): Code(s): K58.9 - Irritable bowel syndrome, unspecified Qualifiers: Irritable bowel syndrome type: without diarrhea Qualified Code(s): K58.9 - Irritable bowel syndrome, unspecified Plan Continue avoiding dietary triggers and late night snacking. Staying upright for minimum 3 hours after meals discussed with patient. Patient will take fam otidine on as needed basis. Continue high-fiber diet. May take probiotics daily. Senokot on as needed basis. Increase fluid intake and activity to promote better bowel motility. Follow-up in 6 months, sooner on as needed basis. She is agreeable to this plan and verbalizes understanding of instructions. She was given the opportunity to ask questions and all questions answered. Thank you for allowing me to participate in her care Medications: New famotidine (Pepcid) 20 mg PO DAILY 30 tabs 3RF K21.9 - Gastro-esophageal reflux disease without esophagitis Coding Level of Care Code Est Pt Level 3 (94385) Diagnoses Chronic idiopathic constipation K59.04 Gastroesophageal reflux disease, unspecified whether esophagitis present K21.9 Esophagitis presence: esophagitis presence not specified Tubular adenoma of colon D12.6 Irritable bowel syndrome without diarrhea K58.9 Irritable bowel syndrome type: without diarrhea Time Spent (min) 25 Comment 15 minutes spent with patient and additional 10 minutes spent reviewing her records
[2024-08-15 09:40] VITALS: BP 134/74; PULSE 64; O2SAT 97; BMI 28.2
== END 2024-08-15 10:51 | disposition home or self-care (01) ==
PROVIDERS: PCP Internal Medicine; Visit Provider Nurse Practitioner Family
DX: K59.04 Chronic idiopathic constipation (principal); K21.9 Gastro-esophageal reflux disease without esophagitis; D12.6 Benign neoplasm of colon, unspecified; K58.9 Irritable bowel syndrome, unspecified
CPT/HCPCS: 99213

== ENCOUNTER → 2024-08-15 09:25 | Outpatient (BNVA) | payer OTHER, SELFPAY | PROVIDERS: PCP Internal Medicine; Visit Provider Nurse Practitioner Family | DX: K21.9 Gastro-esophageal reflux disease without esophagitis (principal); K59.04 Chronic idiopathic constipation; K58.1 Irritable bowel syndrome with constipation; D12.6 Benign neoplasm of colon, unspecified | CPT/HCPCS: 99212 ==

== ENCOUNTER 2024-08-29 13:30 | Outpatient (AMB) | payer OTHER, SELFPAY ==
[2024-08-29 13:48] VITALS: BP 132/76; PULSE 80; O2SAT 99; BMI 27.9
--- NOTE | 2024-08-29 13:48 | MHC.PC.OV ---
Vital Signs 08/29/24 13:48 Height 5 ft 3 in Weight 157 lb 4 oz BMI 27.9 BP 132/76 Blood Pressure Location Lt brachial Position Sitting Pulse 80 Pulse Source Pulse Oximeter Pulse Oximetry (%) 99 Oxygen Delivery Method Room Air Intake Visit Reasons: Annual Exam Intake Note: Patient is here today for a physical. Department Administrator Required: No Accompanied by: Spouse Allergies Seasonal Allergies Allergy (Mild, Verified 08/29/24 14:12) runny nose Medication List - Last Reconciled 08/29/24 by Venita Vicente MD acetaminophen (Tylenol Extra Strength) 500 mg PO Q6H PRN albuterol sulfate 2.5 mg (3 mL) inhalation Q6H PRN 30 days carbidopa-levodopa 25-100 mg 1 tab PO TID cholecalciferol (vitamin D3) 50 mcg PO DAILY clotrimazole-betamethasone 1-0.05 % 1 appl topical BID 30 days divalproex mg PO famotidine (Pepcid) 20 mg PO DAILY fluticasone propionate 50 mcg/actuation 1 spray intranasal DAILY loratadine 10 mg PO DAILY nebulizers (VixOne Nebulizer-Adult Mask) As directed primidone 50 mg PO BID ropinirole mg PO sennosides (Natural Senna Laxative) 8.6 mg PO BEDTIME sucralfate 10 mL PO BEDTIME Ventolin HFA 90 mcg/actuation (albuterol sulfate) 2 puffs inhalation Q6H PRN 30 days NS Tobacco use date assessed: 08/29/24 Dental Screening Dental Screen Date: 08/29/24 Did you have a dental visit in the last 12 months?: Yes Did you have a dental problem in the last 6 months where you did not have access to dental care?: No Was dental information given to patient?: Patient has dentist HPI HPI Comments History of Present Illness Details The patient is a 58-year-old female presenting with a focus on wellness and routine screenings. During the visit, it was discussed that she requires an influenza vaccination, which is typically administered in May. The patient mentioned having a Pap smear in 2019, indicating it is due again this year. Screening for cholesterol, blood sugar, renal, and hepatic functions was discussed to ensure these parameters are within normal limits. Additionally, there is a need to repeat the bone density test this year. No current symptoms or acute complaints were reported, and the patient emphasizes maintaining regular health screenings per recommended guidelines. - Influenza vaccination is recommended this season. - Pap smear is due and should be scheduled. - Screening for cholesterol, blood sugar, renal, and hepatic functions. - Repeat bone density test within the year. [facility] Medical History Tubular adenoma of colon Parkinson disease Right sided sciatica Plantar fasciitis, right Mixed hyperlipidemia Gastritis Right knee pain Fatigue Abdominal discomfort H. pylori infection Hypertension GERD (gastroesophageal reflux disease) Allergic rhinitis Family history of hypertension Nausea Restless leg syndrome Tremors of nervous system Moderate asthma Hypovitaminosis D Anemia Parkinson disease Migraine Asthma Surgical History History of esophagogastroduodenoscopy (EGD) History of colonoscopy History of carpal tunnel release History of surgery Hx of tubal ligation History of breast lump/mass excision Family History Father HTN (hypertension) Asthma Mother HTN (hypertension) Paternal Grandfather Prostate cancer Maternal Grandfather Prostate cancer Family/Other Stomach cancer Maternal Aunt Stomach cancer Social History Household Members: Spouse and Children Housing: House Alcohol intake: never Comment: DISCHARGED PRIOR TO 07:03AM Patient Tobacco Use Status: Never used Tobacco e-Cigarette/Vaping Use: Never Used Second Hand Smoke Exposure: No Advance Directives Date on File: 08/27/14 service: No Current occupational status: unemployed Sexual orientation: Straight/Heterosexual Gender identity: Female Cognitive needs: No Hearing needs: No Vision needs: Yes Questionnaire PHQ-9 Over the last 2 weeks, how often have you been bothered by any of the following problems? 1. Little interest or pleasure in doing things: not at all 2. Feeling down, depressed, or hopeless: not at all 3. Trouble falling or staying asleep, or sleeping too much: not at all 4. Feeling tired or having little energy: not at all 5. Poor appetite or overeating: not at all 6. Feeling bad about yourself - or that you are a failure or have let yourself or your family down: not at all 7. Trouble concentrating on things, such as reading the newspaper or watching television: not at all 8. Moving or speaking so slowly that other people could have noticed. Or the opposite - being so fidgety or restless that you have been moving around a lot more than usual: not at all 9. Thoughts that you would be better off or of hurting yourself in some way: not at all Total score: 0 Depression Screening Interpretation: Negative Depression Screening Done: Yes 65008 - PHQ-9 Billing: Yes Source: Developed by Drs. Rob Chau, Shannon Mae, Bereket Fraser and colleagues, with an educational roman from [employer]. Thrive Questionnaire Date Thrive assessed: 08/29/24 I am a: Patient What is your living situation today?: I have a steady place to live Within the past 12 months, did the food you bought not last and you didn't have the money to get more?: I choose not to answer this question Within the past 12 months, did you worry whether your food would run out before you got money to buy more?: I choose not to answer this question Do you have trouble paying for medicines?: Yes Do you have trouble getting transportation to medical appointments?: No Do you have trouble paying your heating and electricity bill?: No Do you have trouble taking care of your child, family member or friend?: No Do you have trouble with day-to-day activities such as bathing, preparing meals, shopping, managing finances, etc.?: No Are you currently unemployed and looking for a job?: I choose not to answer this question Are you interested in more education?: I choose not to answer this question Please select the resources that you would like help with: None Currently or been in a relationship where the following occur: I choose not to answer THRIVE Score: 0 AUDIT C Alcohol Use Questionnaire (AUDIT-C) 1. How often do you have a drink containing alcohol?: Never 3. How often do you have six or more drinks on one occasion?: Never Total Score: 0 Score Reviewed/Action Taken: No FRANCISCO-7 AMB Questionnaire FRANCISCO-7 Date FRANCISCO - 7 assessed: 08/29/24 Feeling nervous, anxious, or on edge: 0 = Not at all Not being able to stop or control worryin = Not at all Worrying too much about different things: 0 = Not at all Trouble relaxin = Not at all Being so restless that it is hard to sit still: 0 = Not at all Becoming easily annoyed or irritable: 0 = Not at all Feeling afraid as if something awful might happen: 0 = Not at all Total FRANCISCO-7 score (0-4 normal; 5-9 mild; 10-14 moderate; 15-21 severe): 0 Source: Developed by Drs. Rob Chau, Shannon Mae, Bereket Fraser and colleagues, with an educational roman from [employer]. FRANCISCO-7 Assessment Billing FRANCISCO-7 Assessment Tool: FRANCISCO-7 Assessment 64282 Review of Systems Const All systems reviewed & are unremarkable except as noted in HPI and below Card Denies chest pain at rest, Denies chest pain with activity, Denies edema, Denies irregular heart rhythm, Denies claudication, Denies dyspnea, Denies dyspnea on exertion, Denies orthopnea, Denies paroxysmal nocturnal dyspnea and Denies slow heart rate Resp Denies cough, Denies dyspnea and Denies dyspnea on exertion GI Denies abdominal pain, Denies change in bowel habits, Denies excessive flatus, Denies nausea and Denies vomiting Denies urinary incontinence, Denies urinary hesitancy and Denies urinary urgency Musc Denies atrophy, Denies deformity and Denies limited range of motion Skin/Breast Denies bleeding lesions, Denies changing lesions and Denies rash Physical exam (Primary Care) Vital Signs: Last Vital Signs Pulse 80 08/29/24 13:48 BP 132/76 08/29/24 13:48 Pulse Ox 99 08/29/24 13:48 Oxygen Delivery Method Room Air 08/29/24 13:48 BMI result Body Mass Index 27.9 Tobacco/Smoking Status: Tobacco use Status Tobacco use date assessed 08/29/24 08/29/24 14:06 Patient Tobacco Use Status Never used Tobacco 08/29/24 13:49 e-Cigarette/Vaping Use Never Used 08/29/24 13:49 PHQ-9: PHQ-9 Score PHQ-9: Total score 0 08/29/24 14:15 Depression Screening Interpretation: Negative Thrive Assessment: Date of Thrive Assessment Date Thrive assessed 08/29/24 08/29/24 13:52 Currently or been in a relationship where the following occur: I choose not to answer Const Orientation/consciousness: patient oriented x3 HENKY Head: Yes normal to inspection, Yes normocephalic and Yes atraumatic Ears: external ears normal Eyes General: appearance normal, both eyes and all related structures Eyelids: Yes eyelids normal Conjunctivae: conjunctivae normal Neck Neck: Yes normal visual inspection and Yes supple Resp Effort & Inspection: normal respiratory effort Auscultation: clear to auscultation bilaterally Cardio Jugular venous distension: no JVD Rate: regular rate Rhythm: regular rhythm Heart sounds: S1 normal heart sound present and S2 normal heart sound present GI Inspection: Yes normal to inspection Palpation (GI): Soft to palpation and nontender Auscultation: normal bowel sounds Skin General skin exam: no rashes or lesions noted Neuro General: patient oriented x3 and no focal motor deficits Extrem General: Yes full ROM Psych Appearance: grossly normal Coding Level of Care Code Est Pt Prev Care 40-64y(58015) Diagnoses Physical exam Z00.00 Additional Codes FRANCISCO-7 Assessment Billing - FRANCISCO-7 Assessment Tool: FRANCISCO-7 Assessment 44242 ([id number]) PHQ-9 - 09622 - PHQ-9 Billing: Yes ([id number]) Time Spent (min) 31 Assessment & Plan Assessment & Plan (1) Physical exam: Code(s): Z00.00 - Encounter for general adult medical examination without abnormal findings Category: Medical Plan - Administer influenza vaccination this season. - Schedule Pap smear for cervical cancer screening. - Conduct laboratory tests for cholesterol, blood sugar, renal, and hepatic function. - Arrange for a bone density test to be repeated this year. Patient was informed and verbally consented to the use of an ambient scribe for clinic note documentation during this visit. I discussed the importance of staying updated with vaccinations, specifically the influenza vaccination, which is advisable to have in the fall. We reviewed her history of receiving a Pap smear in 2019 and emphasized the need for repeating this test this year. We also talked about the necessity of regular screenings for cholesterol, blood sugar, and the functions of the kidneys and liver to monitor her overall health status. Additionally, I explained why repeating the bone density test was important for assessing her bone health. She was encouraged to adhere to the recommended interventions and follow up as needed. Orders: Orders XR DEXA axial skeleton Today Z78.0 - Asymptomatic menopausal state Vitamin D 25-OH Total Today E55.9 - Vitamin D deficiency, unspecified Lipid Panel Today Z00.00 - Encounter for general adult medical examination without abnormal findings Comprehensive [place]. Panel Fast Today Z00.00 - Encounter for general adult medical examination without abnormal findings Referrals [facility] DATA ASSOCIATE Referral Z12.4 - Encounter for screening for malignant neoplasm of cervix Patient Instructions: - Schedule and receive the influenza vaccination. - Book an appointment for a Pap smear. - Complete blood work to check cholesterol, blood sugar, and functions of the kidneys and liver as discussed. - Schedule the bone density test this year. - Return for follow-up as needed.
== END 2024-08-29 14:24 | disposition home or self-care (01) ==
PROVIDERS: PCP Internal Medicine; Visit Provider Internal Medicine
DX: Z00.00 Encounter for general adult medical examination without abnormal findings (principal)

== ENCOUNTER → 2024-08-29 13:30 | Outpatient (BNVA) | payer OTHER, SELFPAY | PROVIDERS: PCP Internal Medicine; Visit Provider Internal Medicine | DX: Z00.00 Encounter for general adult medical examination without abnormal findings (principal) | CPT/HCPCS: 96127; 99396 ==

== ENCOUNTER 2024-09-17 08:29 | Outpatient (REF) | payer OTHER, SELFPAY | END 2024-09-17 08:30 | disposition home or self-care (01) | LOC: HO.MAMMO 08:29 | PROVIDERS: PCP Internal Medicine; Visit Provider Internal Medicine | DX: Z12.31 Encounter for screening mammogram for malignant neoplasm of breast (principal) | CPT/HCPCS: 77063; 77067 ==

== ENCOUNTER 2024-09-25 07:54 | Outpatient (REF) | payer OTHER, SELFPAY ==
--- NOTE | ~2024-09-25 | MM_ITS ---
EXAMINATION: DXA BONE DENSITY AXIAL HISTORY: Estrogen deficiency TECHNIQUE: [employer] Dual energy absorptiometry (DEXA) of the lumbar spine, total left hip, and femoral neck was performed. COMPARISON: Comparison is made with the prior examination dated 09/06/2022. FINDINGS: The bone mineral density of the lumbar spine is 0.988 with a T-score of -1.6, and a Z-score of -0.6. This represents a BMD change of -3.7% compared to the prior exam. This is statistically significant. The bone mineral density of the left total hip is 0.870 with a T-score of -1.1, and a Z-score of -0.3. This represents BMD change of 20.0% compared to the prior exam. This is statistically significant. The bone mineral density of the left femoral neck is 0.878 with a T-score of -1.2, and a Z-score of 0.0. This represents BMD change of 24.5% compared to the prior exam. FRACTURE RISK: The FRAX index suggests a ten year probability of major osteoporotic fracture of 3.8%, and of hip fracture 0.2%. MM/XR DEXA axial skeleton IMPRESSION: Based on bone mineral density, and according to World Health Organization (WHO) criteria, the diagnosis is consistent with osteopenia. All bone density values are in grams per centimeter squared (g/cm2). Statistically, 68% of repeat scans fall within 1 SD (+/- 0.010 g/cm2 for AP spine L1-L4) and 1 SD (+/- 0.012 g/cm2 for femur total) FRAX is a trademark of the [employer] Metabolic Bone Disease, a World Health Organization (WHO) Collaborating Center. Electronically signed by: Rob Barragan MD 09/29/2024 12:05 PM [facility] [place]
== END 2024-09-25 07:55 | disposition home or self-care (01) ==
LOC: HO.MAMMO 07:54
PROVIDERS: PCP Internal Medicine; Visit Provider Internal Medicine
DX: Z13.820 Encounter for screening for osteoporosis (principal); Z78.0 Asymptomatic menopausal state
CPT/HCPCS: 77080

== ENCOUNTER → 2024-09-25 08:15 | Outpatient (BNV) | payer OTHER, SELFPAY | PROVIDERS: PCP Internal Medicine; Visit Provider Radiology Diagnostic Radiology | DX: E28.39 Other primary ovarian failure (principal) | CPT/HCPCS: 77085 ==

== ENCOUNTER 2025-04-20 10:29 | Outpatient (AMB) | payer OTHER, SELFPAY ==
--- NOTE | 2025-04-20 10:46 | MHC.OFFVIS ---
Vital Signs 04/20/25 10:49 Height 5 ft 3 in Weight 156 lb BMI 27.6 BP 144/74 H Blood Pressure Location Lt brachial Position Sitting Pulse 70 Pulse Source Pulse Oximeter Pulse Oximetry (%) 97 Oxygen Delivery Method Room Air Intake Visit Reasons: 6m Intake Note: Est pt for mgmt of [facility]IC. CC; Pt denies any GI changes or new sx since last visit. Confirms current Rx therapy is OK. General Manager [employer] Required: Yes General Manager [employer] Services: General Manager [employer] Offered & Declined Accompanied by: Significant Other Allergies Seasonal Allergies Allergy (Mild, Verified 04/20/25 10:46) runny nose HPI HPI 6m: Details: LAST VISIT Chronic idiopathic constipation GERD (gastroesophageal reflux disease) Tubular adenoma of colon IBS (irritable bowel syndrome) Plan Continue avoiding dietary triggers and late night snacking. Staying upright for minimum 3 hours after meals discussed with patient. Patient will take famotidine on as needed basis. Continue high-fiber diet. May take probiotics daily. Senokot on as needed basis. Increase fluid intake and activity to promote better bowel motility. Follow-up in 6 months, sooner on as needed basis. She is agreeable to this plan and verbalizes understanding of instructions. She was given the opportunity to ask questions and all questions answered. ? Thank you for allowing me to participate in her care New famotidine (Pepcid) 20 mg PO DAILY 30 tabs 3RF K21.9 TODAY'S VISIT: Patient is here today for follow-up. Patient is accompanied by her . Patient reports that she has been doing well since last visit. Patient has good appetite. Currently is not taking any PPI, however she is taking sucralfate as needed for epigastric pain. Occasional nausea couple times a month maybe associated mostly with epigastric pain. Patient reports that Zofran was helpful. Asking for refill. Patient denies any dyspepsia, dysphagia or odynophagia. Take Senokot as needed if constipated. Patient denies any GI concerning symptoms. Reports to be feeling fairly well. Denies melena, hematochezia, unintentional weight loss or ribbon like stools. Patient will be due to go for colonoscopy in January of 2027. [facility] Medical History Tubular adenoma of colon Parkinson disease Right sided sciatica Plantar fasciitis, right Mixed hyperlipidemia Gastritis Right knee pain Fatigue Abdominal discomfort H. pylori infection Hypertension GERD (gastroesophageal reflux disease) Allergic rhinitis Family history of hypertension Nausea Restless leg syndrome Tremors of nervous system Moderate asthma Hypovitaminosis D Anemia Parkinson disease Migraine Asthma Surgical History History of esophagogastroduodenoscopy (EGD) History of colonoscopy History of carpal tunnel release History of surgery Hx of tubal ligation History of breast lump/mass excision Family History Father HTN (hypertension) Asthma Mother HTN (hypertension) Paternal Grandfather Prostate cancer Maternal Grandfather Prostate cancer Family/Other Stomach cancer Maternal Aunt Stomach cancer Social History Household Members: Spouse and Children Housing: House Alcohol intake: never Comment: DISCHARGED PRIOR TO 07:03AM Patient Tobacco Use Status: Never used Tobacco e-Cigarette/Vaping Use: Never Used Second Hand Smoke Exposure: No Advance Directives Date on File: 08/27/14 service: No Current occupational status: unemployed Sexual orientation: Straight/Heterosexual Gender identity: Female Cognitive needs: No Hearing needs: No Vision needs: Yes Review of Systems Const Denies weight gain and Denies weight loss ENT Reports no additional complaints, Denies dysphagia and Denies odynophagia Card Reports no additional complaints Resp Reports no additional complaints GI Denies abdominal pain, Denies belching, Denies melena, Denies bloating, Denies change in bowel habits, Denies dysphagia, Denies excessive flatus, Denies dyspepsia, Reports heartburn (Occasional), Denies diarrhea, Denies loose stools, Denies nausea, Denies odynophagia and Denies vomiting Reports no additional complaints Musc Reports no additional complaints Neuro Reports no additional complaints Psych Reports no additional complaints Endo Reports no additional complaints Physical Exam Vital Signs: Last Vital Signs Pulse 70 04/20/25 10:49 BP 144/74 H 04/20/25 10:49 Pulse Ox 97 04/20/25 10:49 Oxygen Delivery Method Room Air 04/20/25 10:49 BMI result Body Mass Index 27.6 Const General: healthy appearing, no acute distress and well developed Nutritional Appearance: well nourished Orientation/consciousness: patient oriented x3 Resp Effort & Inspection: normal respiratory effort, able to speak in complete sentences, no tracheal deviation and symmetric chest movement Auscultation: clear to auscultation bilaterally Cardio Rate: regular rate GI Inspection: Yes normal to inspection and No distended Palpation (GI): Soft to palpation, not firm, nontender and No hepatosplenomegaly present Auscultation: normal bowel sounds General: Yes no CVA tenderness Back/Spine/Pelvis Back: no CVA tenderness Skin General skin exam: elasticity normal, turgor normal and dry skin Neuro General: patient oriented x3 Psych Appearance: grossly normal Mental Status: mental status grossly normal Assessment & Plan Assessment & Plan (1) Nausea: Code(s): R11.0 - Nausea Category: Medical (2) GERD (gastroesophageal reflux disease): Code(s): K21.9 - Gastro-esophageal reflux disease without esophagitis Category: Medical Qualifiers: Esophagitis presence: esophagitis presence not specified Qualified Code(s): K21.9 - Gastro-esophageal reflux disease without esophagitis (3) Chronic idiopathic constipation: Code(s): K59.04 - Chronic idiopathic constipation Category: Medical Plan Patient will continue avoiding dietary triggers and late night snacking. Staying upright for minimum 3 hours after meals discussed with patient. Patient will take sucralfate as needed. Will call our office if she will have exacerbation of her symptoms. May take Zofran as needed. Follow current bowel regimen. Increase fluid intake and activity to promote better bowel motility. Patient will follow-up in 6 months. Patient was encouraged to call our office if she will have any GI concerning symptoms. She is agreeable to this plan and verbalizes understanding of instructions. She was given the opportunity to ask questions and all questions answered. Thank you for allowing me to participate in her care Medications: New ondansetron 4 mg PO Q8H PRN 20 tabs 0RF nausea and vomiting R11.0 - Nausea Refilled sucralfate 10 mL PO BEDTIME 420 mL 5RF K21.9 - Gastro-esophageal reflux disease without esophagitis sennosides (Natural Senna Laxative) 8.6 mg PO BEDTIME 90 tabs 3RF constipation K59.00 - Constipation, unspecified Discontinued famotidine Discontinued Reason: Patient no longer taking 20 mg PO DAILY 90 tabs 1RF K21.9 - Gastro-esophageal reflux disease without esophagitis Coding Level of Care Code Est Pt Level 3 (81398) Diagnoses Nausea R11.0 Gastroesophageal reflux disease, unspecified whether esophagitis present K21.9 Esophagitis presence: esophagitis presence not specified Chronic idiopathic constipation K59.04 Time Spent (min) 30 Comment 20 minutes spent with patient and additional 10 minutes spent reviewing her records
[2025-04-20 10:49] VITALS: BP 144/74; PULSE 70; O2SAT 97; BMI 27.6
--- OUTSIDE RECORDS SUMMARY | 2025-04-20 11:39 | XMS_ITS | Clinical Summary ---
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 07/01/2013 Active benzonatate (TESSALON) 100 MG capsule Take 1 capsule by mouth 3 (three) times a day. 12/31/2012 Active calcium carbonate-vitam in D3 1,250 mg (500 mg elemental)-200 units per tablet Take 1 tablet by mouth daily. 12/31/2012 Active carbidopa-levod opa-entacapone (STALEVO) 25-100-200 mg per tablet Dose: 1 TAB; Form: Not available; Route: PO; Frequency: Not available; Directions: Not available; Details: Not available; Date: 12/31/2012 12/31/2012 Active clonazePAM (KLONOPIN) 1 MG tablet Take 1 tablet by mouth 3 (three) times a day. 12/31/2012 Active codeine 30 MG tablet Dose: 30 MG; Form: Take 1 TABLET; Route: PO; Frequency: qhs; Directions: Not available; Details: Duration: 30 day(s); Dispense: 30 Tablet(s); Date: 04/29/2013 04/29/2013 Active codeine 60 MG tablet Dose: 30 MG; Form: Take 0.5 TABLET; Route: PO; Frequency: qhs; Directions: Not available; Details: Duration: 14 day(s); Dispense: 7 Tablet(s); Date: 04/29/2013 04/29/2013 Active cyclobenzaprine (FLEXERIL) 10 MG tablet Take 1 tablet by mouth 3 (three) times a day. 12/31/2012 Active omeprazole (PRILOSEC) 20 mg TbEC Take 2 tablets by mouth daily. 07/04/2013 Active oxyCODONE 5 MG immediate release tablet Take 1-2 tablets by mouth every 4 (four) hours. PRN PAIN 12/09/2013 Active primidone (MYSOLINE) 50 MG tablet Take 1 tablet by mouth 2 (two) times a day. 12/31/2012 Active beclomethasone (QVAR) 80 mcg/actuation inhaler Inhale 2 puffs into the lungs 2 (two) times a day. 12/31/2012 Active topiramate (TOPAMAX) 25 MG tablet Take 1 tablet by mouth 2 (two) times a day. 12/31/2012 Active traZODone (DESYREL) 50 MG tablet Take 1 tablet by mouth nightly. 12/31/2012 Active trihexyphenidyl (ARTANE) 2 MG tablet Take 1 tablet by mouth 3 (three) times a day. 12/31/2012 Active ACLIDINIUM BROMIDE (TUDORZA PRESSAIR INHL) Dose: Not available; Form: Not available; Route: INH; Frequency: Not available; Directions: Not available; Details: Not available; Date: 12/31/2012 12/31/2012 Active acetaminophen (TYLENOL) 325 mg tablet Dose: 325 MG; Form: Take 1 TABLET; Route: PO; Frequency: Not available; Directions: Not available; Details: Dispense: Tablet(s); Date: 12/31/2012 12/31/2012 Active venlafaxine (EFFEXOR-XR) 75 MG 24 hr capsule Take 1 capsule by mouth daily. 12/31/2012 Active ALBUTEROL SULFATE (VENTOLIN HFA INHL) Dose: 2 PUFF; Form: Not available; Route: INH; Frequency: Q6H; Directions: Not available; Details: Not available; Date: 12/31/2012 12/31/2012 Active ascorbic acid (VITAMIN C) 500 MG tablet Take 1 tablet by mouth 2 (two) times a day. 12/31/2012 Active Immunizations Immunization Administration Dates Next Due Influenza, Unspecified Formulation 10/31/2013(De kendall: Other) Family History Medical History Relation Comments Breast cancer Unspecified Breast Cancer Relation Status Comments Unspecified Social History Tobacco Use Types Packs/Day Years Used Date Smoking Tobacco: Never Education Answer Date Recorded Are you interested in more education? Not on ayana e 12/21/2022 Are you concerned about learning? Not on file 12/21/2022 No 12/21/2022 No 12/21/2022 Digital Access Answer Date Recorded No 01/22/2023 No 01/22/2023 No 01/22/2023 Reliable internet access at home? Not on file 01/22/2023 Device with a working camera? Not on file Comments Unknown Sex and Gender Information Value Date Recorded Sex Assigned at Not on file Legal Sex Female 8:11 PM EST Gender Identity Not on file Sexual Orientation Not on file Last Filed Vital Signs Vital Sign Reading Time Taken Comments Blood Pressure 165/87 09/02/2013 1:03 PM EST Pulse 115 09/02/2013 1:03 PM EST Temperature 37.7 C (99.9 F) 09/02/2013 1:03 PM EST Respiratory Rate 20 09/02/2013 1:03 PM EST Oxygen Saturation - - Inhaled Oxygen Concentration - - Weight 75.8 kg (167 lb) 06/12/2013 11:34 AM EDT Height 160 cm (5' 3 ) 03/26/2014 8:51 AM EDT Body Mass Index 27.79 04/25/2013 12:08 PM EDT Plan of Treatment Health Maintenance Due Date Last Done Comments LIPID PANEL 1965 DEPRESSION SCREENING 1977 SMOKING Hx and SMOKELESS TOBACCO SCREENING 1978 HEPATITIS C SCREENING 12/17/1983 HIV ONE-TIME SCREENING (18-65 YEARS) 12/17/1983 PAP SMEAR 1986 MAMMOGRAM 2005 COLOGUARD 2010 COLONOSCOPY 2010 COLORECTAL CANCER SCREENING 2010 FIT TEST 2010 FOBT 2010 SIGMOIDOSCOPY 2010 VIRTUAL COLONOSCOPY 2010 PNEUMOCOCCAL VACCINES (50+ years) (1 of 1 - PCV) 12/17/2015 Adult Td,Tdap Booster 08/22/2020 08/22/2010 COVID-19 VACCINE (1 - 2023- season) 2024 INFLUENZA VACCINE (#1) 2025 , 05/08/2020, 06/30/2019, Additional history exists ZOSTER VACCINES Completed 04/14/2018, 12/11/2017 HEPATITIS A VACCINES Aged Out No long er eligible based on patient's age to complete this topic HIB VACCINES Aged Out No longer eligi ble based on patient's age to complete this topic MENINGOCOCCAL VACCINES (ACWY) Aged Out No longer eligible based on patient's age to complete this topic MENINGOCOCCAL VACCINES (B) Aged Out N o longer eligible based on patient's age to complete this topic Medical Devices Not on file Insurance C[employer]PLUS CAREPLUS CAREPLUS CAREPLUS Member Subscriber Plan / Payer (Ef fective 2015-Present) Name:Shannon Barbosa Relation to Subscriber:Self Name:Shannon Barbosa Payer ID:Not on file Group ID:Not on file Type:Medicaid Address: [place] [id number] Care Teams Wafer Fabrication Technician Relationship Specialty Start Date End Date Flora Cuenca MD [address] [place] [phone] PCP - General 02/24/14 Additional Source Comments The information contained in this document represents components of the legal health record. It is not the complete legal health record.[facility]
== END 2025-04-20 11:09 | disposition home or self-care (01) ==
LOC: HO.HGI 10:31
PROVIDERS: PCP Internal Medicine; Visit Provider Nurse Practitioner Family
DX: R11.0 Nausea (principal); K21.9 Gastro-esophageal reflux disease without esophagitis; K59.04 Chronic idiopathic constipation
CPT/HCPCS: 99213

== ENCOUNTER → 2025-04-20 10:29 | Outpatient (BNVA) | payer OTHER, SELFPAY | PROVIDERS: PCP Internal Medicine; Visit Provider Nurse Practitioner Family | DX: K21.9 Gastro-esophageal reflux disease without esophagitis (principal); K59.04 Chronic idiopathic constipation; R11.0 Nausea | CPT/HCPCS: 99212 ==